=== PATIENT | female | born 1945 | race Caucasian/White ===

== ENCOUNTER 2016-09-07 05:12 | Inpatient (IN) | payer MEDICARE, BC ==
[2016-09-04 10:37] LABS: HEMATOCRIT 36.5 % (36.0-48.0); MCH 29.9 pg (26.0-34.0); MCHC 32.9 g/dL (31.0-37.0); MCV 90.8 fL (80.0-100.0); MEAN PLATELET VOLUME 10.5 fL (7.4-10.4); RBC 4.02 10x6/uL (4.00-5.40); WBC 7.3 10x3/uL (4.8-10.8)
[2016-09-04 10:51] LABS: APTT 29.4 SECONDS (22.8-39.4); INR 0.98 (0.85-1.17); PROTIME 12.9 SECONDS (11.6-15.0)
[2016-09-04 10:52] LABS: APPEARANCE CLEAR (CLEAR); BILIRUBIN NEGATIVE (NEGATIVE); COLOR YELLOW (YELLOW); GLUCOSE NEGATIVE (NEGATIVE); KETONE NEGATIVE (NEGATIVE); LEUKOCYTE ESTERASE 1+ (NEGATIVE); NITRITE NEGATIVE (NEGATIVE); PROTEIN NEGATIVE (NEGATIVE); UROBILINOGEN NORMAL (NORMAL)
[2016-09-04 10:54] LABS: BACTERIA MODERATE /hpf (NONE SEEN); MUCUS <1+ /lpf (NONE SEEN); RED CELLS - URINE 0-5 /hpf (0-5); WHITE CELLS - URINE 25-50 /hpf (0-5)
[2016-09-04 10:56] LABS: ALBUMIN 3.4 g/dL (3.4-5.0); ANION GAP 14.7 mmol/L (8-16); BILIRUBIN - TOTAL 0.66 mg/dL (0.2-1.3); CALCIUM 9.5 mg/dL (8.5-10.1); CREATININE - SERUM 1.4 mg/dL (0.6-1.3); POTASSIUM - SERUM 4.7 mmol/L (3.5-5.1); PROTEIN - SERUM 6.3 g/dL (6.4-8.2)
--- NOTE | 2016-09-05 11:32 | HP ---
PATIENT: CHALO MA MEDICAL RECORD: [id number] ACCOUNT: [id number] LOCATION:[facility] : 44 ADMISSION DATE: 09/07/16 HISTORY AND PHYSICAL EXAMINATION Patient CHALO Hutton (71yo, F) ID# [id number]. Date/Time08/19/2016 10:[id number] Dept.NPP_[facility] ClinicProviderSELINA CASTANEDA MDInsuranceMed Primary: MEDICARE B-AR: [employer] MEDICARE Insurance # : [id number] Referring Provider Name : LORETA BURTON Employer Name : RETIRED Med Secondary: BCBS-[place]: MED[employer]AK PLUS (MEDICARE SUPPLEMENT) Insurance # : [id number] Policy/Group # : [id number] Referring Provider Name : LORETA BURTON Employer Name : RETIRED Prescription: ARBCBS - Member is eligible. Chief Complaint Lung lesion Followup: Interstitial lung disease Patient's Care Team Referring Provider (): LORETA BURTON: [address] [place] [phone], , Other: HOLLIS GUALLPA MD Patient's Pharmacies [facility] ([facility]): [place] [address], , Vitals BP:118/72 sitting R arm 08/19/2016 10:34 amBP Cuff Size:large adult 08/19/2016 10:34 amHR:80,regular 08/19/2016 10:34 amHt:6 ft 08/19/2016 10:28 amWt:332 lbs 08/19/2016 10:32 amBMI:45 08/19/2016 10:32 amAllergies Reviewed Allergies TREE AND SHRUB POLLEN: - COTTON WOODWEED POLLENSome allergies listed in Document: #[id number] could not be added to this patient's chart. Please review this document and add these allergies to the patient's chart manually as needed.Medications Reviewed Medications Breo Ellipta 200 mcg-25 mcg/dose powder for inhalation Inhale 1 inhalation(s) every day by inhalation route for 30 days.07/01/16 Nehemias Priceitalopram 40 mg uhtwpy19/05/16 filledPRIMEdoxycycline hyclate 100 mg capsule Take 1 capsule(s) twice a day by oral route for 10 days.07/01/16 Miguel Priceoxycycline hyclate 100 mg nsitxd73/02/16 filledPRIMEfluticasone 50 mcg/actuation nasal spray,uzureducls28/29/16 filledPRIMEgabapentin 300 mg uzafsje93/03/16 filledPRIMEHYDROcodone 7.5 mg-acetaminophen 325 mg ustqfg45/28/15 filledPRIMEIncruse Ellipta 62.5 mcg/actuation powder for inhalation Inhale 1 inhalation(s) every day by inhalation route.07/01/16 Jeff Guallpa MDlosartan 100 mg-hydrochlorothiazide 12.5 mg liuohh01/05/16 filledPRIMEnaproxen 500 mg prjzap50/23/16 filledPRIMENitro-Bid 2 % transdermal omnahqzf71/25/16 filledPRIMEnitrofurantoin monohydrate/macrocrystals 100 mg swktuhq34/12/16 filledPRIMEoxyCODONE-acetaminophen 7.5 mg-325 mg sheyzg58/28/15 filledPRIMEpolyethylene glycol 3350 17 gram/dose oral /17/16 filledPRIMEpredniSONE 10 mg tablet Take 4 tablet(s) every day by oral route as directed.07/01/16 filledPRIMEProAir HFA 90 mcg/actuation aerosol mcueqqh61/02/16 filledPRIMEsimvastatin 40 mg HISTORY AND PHYSICAL [id number] ANILCHALO utuqhr14/05/16 filledPRIMEspironolactone 25 mg yiygcy01/05/16 filledPRIMEtolterodine 2 mg /05/16 filledPRIMEzafirlukast 20 mg luwsfg48/05/16 filledPRIME Some medications listed in Document: #[id number] could not be added to this patient's chart. Please review this document and add these medications to the patient's chart manually as needed. Vaccines Reviewed Vaccines Vaccine TypeDateAmt.RouteSiteLot #Mfr.Exp. DateDate on VISVIS GivenVaccinatorInfluenzainfluenza, high dose [id number] conjugate PCV [id number] Reviewed Problems Hyperlipidemia Morbid obesity Anxiety Obstructive sleep apnea syndrome Sleep related hypoxemia Periodic limb movement disorder Hypertensive disorder Bronchiolitis Allergic rhinitis Chronic bronchitis Asthma Chronic obstructive lung disease Interstitial lung disease Chronic hypoxemic respiratory failure Zmjty-wt-pzniwbw respiratory failure Restrictive lung disease Gastroesophageal reflux disease Arthritis Chronic back pain Periodic leg movements of sleep Dyspnea, Bilateral Chronic cough Some problems listed in Document: #[id number] could not be added to this patient's chart. Please review this document and add these problems to the patient's chart manually as needed. Family History Reviewed Family History Mother- Heart disease ( age: 73) - MISocial History Reviewed Social History Meaningful Use - Optional Smoking Status: Never smoker Deaf or serious difficulty hearing: N Blind or serious difficulty seeing: N Difficulty concentrating, remembering or making decisions: N Difficulty walking or climbing stairs: N Difficulty dressing or bathing: N HISTORY AND PHYSICAL [id number] CHALO MA Difficulty doing errands alone: N Surgical History Reviewed Surgical History Other - 2014 - BACK Other - 2014 - FULL KNEE REPLACEMENT X2 Other - 2013 - FULL KNEE REPLACEMENT X2 Other - 2003 - PARTIAL KNEE REPLACEMENT X2 CHOLECYSTECTOMY [employer] History (not configured) Obstetric History Reviewed Obstetric History Past Medical History Reviewed Past Medical History Asthma: Y GERD: Y High Blood Pressure: Y Notes: ANXIETY DISORDER, SKIN CA Documents for Discussion N/A Screening None recorded. HPI 70-year-old white female with history of anxiety, degenerative joint disease, hypertension, hyperlipidemia, GERD, allergic rhinitis and shortness breath for many years. Patient had frequent sinus, bronchitis and respiratory tract infections as a child, but no known history of asthma, positive for allergy testing she took shots as a child, however recent allergy testi n g in [place] 4 years ago was negative and she was told by her corporate buyer that she has COPD. denies history of pneumonia history of tuberculosis, bronchitis 1-2 times a year during the winter, no CHF, no history of DVT or PE, has dogs x 3 that live outs [facility], but no problems when exposed to them. 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 Patient had echocardiogram and cardiac wo rkup by Dr. Winkler recently. Patient has had shortness breath for many years, slowly progressive, worse with weather changes are typically humidity, worse with exercise and able to only walk up a hallway, particularly going up inclines, strong odors seem to bother her as well, however no nocturnal symptoms. Able to do some of her daily activities but is limited compared to what she could do in the past. Patient has some wheezing, been tried on inhalers but did not seem to help in the past. Has leg edema, sle e ps on one pillow, denies any PND no orthopnea, no chest pain or pleurisy. Patient has chronic cough mostly phlegm production no hemoptysis no purulent secretions, no sore throat, but occasional hoarseness. Patient denies any weight change, no fever, chill s or night sweats. Patient has some reflux and taking ozie-plm-mplczlb Prilosec, no aspiration, does have some rhinitis which he takes Accolade twice a day and no nasal sprays. ROS Patient reports shortness of breath when walking and shortness of breath when lying down but reports no chest pain, no arm pain on exertion, no palpitations, and no known heart murmur. She reports cough and shortness of breath; coughs up yellow phlegm a couple of times a day. Coughs more frequently that is nonproductive.. She HISTORY AND PHYSICAL [id number] CHALO MA reports back pain; in treaatment w in LR. She reports no fever, no night sweats, no significant weight gain, no significant weight loss, and no exercise intolerance. She reports no dry eyes, no irritation, and no vision change. She reports no difficulty hea ring and no ear pain. She reports no frequent nosebleeds and no nose/sinus problems. She reports no sore throat, no bleeding gums, no snoring, no dry mouth, no mouth ulcers, no oral abnormalities, and no teeth problems. She reports no jugular vein distens i on and no swollen glands. She reports no abdominal pain, no vomiting, normal appetite, no diarrhea, not vomiting blood, no nausea, and no constipation. She reports no incontinence, no difficulty urinating, no hematuria, and no increased frequency. She rep o rts no abnormal mole, no jaundice, and no rashes. She reports no loss of consciousness, no weakness, no numbness, no seizures, no dizziness, and no headaches. She reports no depression, no sleep disturbances, feeling safe in relationship, and no alcohol a buse. She reports no fatigue. She reports no swollen glands and no bruising. She reports no runny nose, no sinus pressure, no itching, no hives, and no frequent sneezing. ROS as noted in the HPI Physical Exam Patient is a 71-year-old female. Constitutional: General Appearance: well nourished, well developed, and morbidly obese. Level of Distress: no acute distress. Ambulation: limited ambulation. Ears: Cerumen negative. Canal: no erythema or swelling. Tympanic Membrane: no bulging or fluid and perforated. Nasal: Nasal Mucosa: edematous and irritated and no discharge. Septum: not markedly deformed. Oropharynx: Lips, Teeth, and Gums normal dentition and lips. Oral Mucosa no ulcer, mass, inflammation, swelling, or leukoplakia and moist. Palate: normal hard palate and soft palate. Tongue: no erythema, lesions, enlargement, or swelling. Tonsils: no enlargement or lesions. Posterior Pharynx no enlargement, erythema, exudate, ulcers, mass, cobblestoning, or white patches. Neck: Neck: supple, trachea midline, no masses, and Full ROM. Thyroid: no enlargement or nodules and non-tender. Jugular Veins: no jugular venous distention or sue a waves present and normal jugular venous pressure. Lungs: Respiratory effort: unlabored. Inspection : normal curve and chest wall expansion; no deformity, tenderness, or swelling; and tactile fremitus present and equal on both sides. Auscultation: no wheezing or rhonchi and decreased breath sounds,bilateral,bases and rales / crackles,. Percussion: no dul lness, flatness, or hyperresonance. Cardiovascular: Precordial Exam: non displaced focal PMI. Heart Rate And Rhythm: normal heart rate and rhythm. Heart Sounds: no gallop, click, physiologically split S2, or pericardial friction rub and normal s1. Systoli c Murmur: no systolic murmurs. Diastolic Murmur: no diastolic murmurs. Observation/Palpation of peripheral vascular system: no cyanosis or varicosity changes and normal dorsalis pedis and posterior tibialis. Abdomen: Inspection and Palpation: no tendernes s or masses and soft and non-distended. Liver: non-tender and no hepatomegaly. Spleen: non-tender and no splenomegaly. Bowel Sounds: normal and no abdominal bruits. Lymphatic: no cervical lymph enlargement, axillary LAD, inguinal LAD, femoral LAD, supracl avicular LAD, or HISTORY AND PHYSICAL [id number] CHALO MA popliteal LAD. Musculoskeletal:: Motor Strength and Tone: normal bulk, tone, and motor strength. Gait and Station: normal gait, station, and tandem gait. Joints, Bones, and Muscles: no contractures, malalignment, tenderness, scoliosis, kyp hosis, or bony abnormalities and normal movement of all extremities. Extremities: Inspection/Palpation of digits and nails: no clubbing, cyanosis, petechiae, ischemia, or nodular lesions and Edema. Skin: Inspection and palpation: no rash, lesions, jaundice, ulcer, erythema, or induration and normal turgor. Neurologic: Mental Status/Orientation: oriented to person, place, problem/situation, and time. Mood/Affect: normal mood and affect. Sensation sensation normal. Cranial Nerves cranial nerves II - XII in tact. Deep Tendon Reflexes upper extremities positive and lower extremities positive. Assessment / Plan 1. Interstitial lung disease - [place] OPACITIES BILATERALLY J84.9: Interstitial pulmonary disease, unspecified INTERSTITIAL LUNG DISEASE: CARE INSTRUCTIONS Discussion Notes PATIENT WITH INTERSTITIAL LUNG DISEASE WORKUP NEGATIVE SO FAR hER THERAPY COULD BE DIRECTED RESULTS OF A LUNG BIOPSY aFTER REVIEWING HER WORKUP i THINK THAT SHE WOULD BENEFIT FROM VIDEO-ASSISTED FLUOROSCOPY AND LUNG BIOPSY WITH cultures Into for VATS first august Return to Office Hollis Guallpa MD for Office Visit 15 at [facility] on 09/23/2016 at 02:30 PM Encounter Sign-Off Encounter signed-off by Selina Castaneda MD, 08/19/2016. Encounter performed and documented by Selina Castaneda MD Encounter reviewed & signed by Selina Castaneda MD on 08/19/2016 at 11:27am SELINA CASTANEDA MD at 1132 CC: [id number] DICTATION DATE: 08/19/16 1127 INTERIOR DECORATOR: AVINASH 09/02/16 [id number] [place] [address]
[~2016-09-07] VITALS: Ht 182.9 cm; Wt 153.3 kg
[2016-09-07] VITALS (39 sets, daily range): BP systolic 109–134; BP diastolic 46–74; BMI 45.1; BMI 46.3
[~2016-09-07 05:12] MED LIST: ACCOLATE20 MG PO; ALDACTONE25 MG PO; ANORO ELLIPTA1 EACH INH; BREO ELLIPTA 21 EACH; CELEXA40 MG PO; DETROL2 MG PO; FLUTICASONE PRO16 GM NASAL; HYZAAR 100-12.51 TAB PO; INHALER; NAPROSYN500 MG PO; NEURONTIN 300300 MG PO; OMEPRAZOLE20 M1 PO; PROAIR HFA8.5 GM INH; PROBIOTIC1 EAC1 PO; ULTRAM50 MG; ZOCOR40 MG PO
--- NOTE | 2016-09-07 06:36 | NUR ---
0610 DISCONTINUED K DRAW FOR THIS AM PER DR. EMERSON ORDERS. GIVEN PO PILLS THAT WERE ORDERED PER DR. EMERSON ORDERS.
--- NOTE | 2016-09-07 11:00 | NUR ---
RECIEVED PT FROM OR. CONNECTED TO ICU MONITORS. VSS AT THIS TIME. ASSESSMENT COMPLETE PER FLOWSHEET. WILL CONTINUE TO ASSESS FOR CHANGES THROUGHOUT SHIFT.
--- NOTE | 2016-09-07 11:30 | NUR ---
FAMILY AT BEDSIDE WITH DR. CASTANEDA. UPDATE PROVIDED TO FAMILY.
--- NOTE | 2016-09-07 12:30 | NUR ---
GOOD COUGH AND DEEP BREATH NOTED. PULLING 1250 ON IS.
--- NOTE | 2016-09-07 15:00 | NUR ---
REPOSITIONED FOR COMFORT. PILLOW PLACED UNDER RIGHT KNEE. ICE CHIP GIVEN. WILL CONTINUE TO ASSESS. CALL LIGHT IN REACH. BED IN LOW POSITION.
--- NOTE | 2016-09-07 18:00 | NUR ---
FAMILY AT BEDSIDE. UPDATE PROVIDED.
--- NOTE | 2016-09-07 19:25 | NUR ---
REPORT REC'D AND CARE ASSUMED, PT REC'D SLEEPING ON 4LITER NC, AWAKENS TO VERBAL STIMULI, ORIENTED X 3, LDLSCL DRSG CDI WITH PLASMALYTE @ 30CC/HR, DOPAMINE @ 3MCG/KG/MIN, AND ZINACEF @ 11.4CC/HR, BBS CLEAR TO UPPER LOBES DIMINSHED IN THE BASES, LEFT LATERAL AND POSTERIOR DRSGS CDI, LEFT LATERAL CT TO 20CM H2O SUCTION, SANGUINOUS DRAINAGE PRESENT, NO AIR LEAK NOTED, RIGHT RADIAL KATE WITH FLEXION BOARD INTACT, LEVELED AND ZEROED WITH RETURN OF APPROPRIATE WAVEFORM, CM-ST @ 101, BILAT ARMS WITH SCABS AND BRUISES, CRITICORE GIORDANO PATENT DRAINING CLEAR YELLOW URINE, EPIDURAL TAPED SECURELY TO BACK INFUSING @ 7CC/HR WITH 4CC Q15MIN BOLUS AVAILABLE, PT DENIES PAIN AT THIS TIME, STATES " IT COMES AND GOES", GENERALIZED EDEMA, BILAT SCD'S INTACT AND ON, PT DENIES NEEDS, SR UP X 2, VISIBLE TO NURSES STATION.
--- NOTE | 2016-09-07 20:00 | NUR ---
PT COMPLAINS OF BEING THIRSTY, TOLERATING ICE CHIPS AT THIS TIME, ASSISTED TP TO REPOSITION FOR COMFORT, PT HOLDING LEFT SIDE, STATES " IT REALLY HURTS WHEN I BREATH OR COUGH", REMINDED PT OF EPIDURAL BOLUS BUTTON, PILLOW PROVIDED FOR SPLINTING WHILE COUGHING, VSS.
--- NOTE | 2016-09-07 21:00 | NUR ---
EVENING MEDS GIVEN, NO VISITORS IN AT THIS TIME, WILL MONITOR CLOSELY FOR CHANGES
--- NOTE | 2016-09-07 22:00 | NUR ---
O2 SAT 90-91% WHILE SLEEPING, PT AWAKENED, IS DONE WITH PT, PT PULLING 500-75O, PT COMPLAINS OF PAIN WITH DEEP BREATHING, PT ENCOURAGED TO USE EPIDURAL BUTTON NEEDED FOR BREAKTHROUGH PAIN, VERBALIZES UNDERSTANDING, ICE CHIPS PROVIDED.
--- NOTE | 2016-09-07 23:05 | NUR ---
REASSESSMENT COMPLETED, PT CONTINUES TO PULL 750 ON IS REACHING 1000 OCCASIONALLY , O2 SAT 94%, PT POSITIONED ONTO BACK FOR COMFORT, DENIES FURTHER NEEDS.
[2016-09-08] VITALS (27 sets, daily range): BP systolic 96–125; BP diastolic 49–68; Ht 182.9 cm; Wt 153.3 kg
--- NOTE | 2016-09-08 01:00 | NUR ---
PT REPOSITIONED UP IN BED FOR COMFORT, ICE CHIPS PROVIDED ON REQUEST, VSS, WEANING DOPAMINE
--- NOTE | 2016-09-08 03:00 | NUR ---
PT RESTING EYES CLOSED, VSS, REASSESSMENT COMPLETED, EPIDURAL CONTINUES @ 7CC/HR, PT COMPLAINS OF INTERMITTENT PAIN, WILL CONT TO MONITOR FOR CHANGES.
--- NOTE | 2016-09-08 03:30 | NUR ---
RADIOLOGY AT BS FOR AM CXR, PT TOLERATED WELL.
--- NOTE | 2016-09-08 05:30 | NUR ---
AM LAB DRAWN FROM CVL AND SENT TO LAB, NO CHANGES IN PT STATUS.
--- NOTE | 2016-09-08 06:00 | NUR ---
NO VISITORS IN AT THIS TIME, PT RESTING EYES CLOSED, RESP SHALLOW AND UNLABORED, VSS.
[2016-09-08 06:31] LABS: HEMATOCRIT 31.9 % (36.0-48.0); HEMOGLOBIN 10.3 g/dL (12-16); MCH 29.6 pg (26.0-34.0); MCHC 32.3 g/dL (31.0-37.0); MCV 91.7 fL (80.0-100.0); MEAN PLATELET VOLUME 10.8 fL (7.4-10.4); RBC 3.48 10x6/uL (4.00-5.40); WBC 8.9 10x3/uL (4.8-10.8)
--- NOTE | 2016-09-08 06:47 | CN ---
PATIENT NAME:CHALO MA MEDICAL RECORD: [id number] : 43 LOCATION:[facility]2304 ADMIT DATE: 09/07/16 ACCOUNT: [id number] CONSULTING PHYSICIAN: LORETA BURTON MD REFERRING PHYSICIAN: SELINA CASTANEDA MD DATE OF CONSULTATION: 09/07/2016 DATE OF ADMISSION: 09/07/2016 REASON FOR CONSULTATION: Medical management. HISTORY OF PRESENT ILLNESS: This patient is a 71-year-old female who has had a longstanding history of having acute and chronic hypoxic hypercapnia respiratory failure. He has had a history of having asthma, pulmonary fibrosis with restrictive lung disease, gastroesophageal reflux, morbid obesity. Also, has had hypertension. The patient, it was felt, needed a lung biopsy; therefore, she underwent VATS today with lung biopsy by Dr. Castaneda. PAST MEDICAL HISTORY: Significant that she has had knee replacement bilaterally. She also has had cholecystectomy. She has had a D&C, nasal sinus endoscopy. She is a . MEDICATIONS: Include Celexa 40 mg once a day, fluticasone 50 mcg 2 squirts in each naris b.i.d., gabapentin 300 mg 1 p.o. b.i.d., losartan 100/12.5 mg 1 p.o. every day, Naprosyn 500 mg 2 p.o. every day, Prilosec 20 mg once a day, ProAir 90 mcg 2 puffs q. 4 hours p.r.n. shortness of breath, simvastatin 40 mg 1 p.o. at bedtime, and Detrol 2 mg p.o. b.i.d. ALLERGIES: He has no known drug allergies. FAMILY HISTORY: Mother, obesity, also had hypertension and diabetes in an aunt. SOCIAL HISTORY: The patient is educated through the 12th grade. She is a retired ryan. She denies any ethanol, tobacco use or abuse. REVIEW OF SYSTEMS: CONSTITUTIONAL: She denies any headaches, seizure, or syncope. She denies changes in visual or auditory acuity. PULMONARY: She denies any shortness of breath, cough, congestion, history of asthma, or bronchitis. CARDIOVASCULAR: She denies any chest pain, palpitation, PND, or orthopnea. GASTROINTESTINAL: No chronic nausea, vomiting, melena, or hematochezia. GENITOURINARY: No urgency, frequency, or dysuria. PHYSICAL EXAMINATION: GENERAL: She is an obese female who is sedated, in no acute distress. She is in ICU. VITAL SIGNS: Temperature 99, her pulse 109, respirations 18, blood pressure 126/51, and O2 sat is 95% on 4 liters nasal prong. HEENT: Head: Normocephalic. No lesions. Ears: TMs are clear. Eyes: Pupils are equal, round, and reactive to light. Extraocular movements are intact. Nasal cavity and oropharynx clear. NECK: Supple. There is no adenopathy. HEART: Has a regular rhythm. No murmurs, gallops, or rubs. LUNGS: Clear. CONSULT REPORT [id number] CHALO MA NEUROLOGICAL: The patient does have a chest tube in the left posterior chest. ABDOMEN: Soft, bowel sounds are positive. The patient has a Nicole catheter in place as well. EXTREMITIES: Lower extremities have no edema. She has 2+ dorsalis pedis, posterior tibial pulses. LABORATORY DATA: Preoperatively, the patient had a white count of 7.3, hemoglobin 12, hematocrit 36.5, and her platelets were 233. She had a sodium 144, potassium 4.7, chloride 109, BUN 19, and creatinine 1.4. She had a chest x-ray preoperatively, which showed a stable mild chronic interstitial lung disease versus acute cardiopulmonary disease. Postoperatively, the patient had status post thoracotomy on the left with a left-sided chest tube placed. No pneumothorax could be appreciated. ASSESSMENT: 1. Status post video-assisted thoracoscopic surgery with lung biopsy. 2. History of asthma. 3. Hypertension. 4. Morbid obesity. PLAN: We will repeat chest x-ray in the morning, CBC as well as a BMP. We will continue all of her current medications. Thanks for the consultation. TRANSINT:[id number] Voice Confirmation ID: [id number] DOCUMENT ID: [id number] LORETA BURTON MD at 0647 CC: [id number] DICTATION DATE: 09/07/161811 CASH ON DELIVERY CLERK: 09/07/162058 ADM IN [id number] [place] [address]
[2016-09-08 06:54] LABS: ALBUMIN 2.5 g/dL (3.4-5.0); BILIRUBIN - TOTAL 0.9 mg/dL (0.2-1.3); CALCIUM 7.4 mg/dL (8.5-10.1); CARBON DIOXIDE 24.9 mmol/L (21.0-32.0); CREATININE - SERUM 1.1 mg/dL (0.6-1.3); POTASSIUM - SERUM 3.9 mmol/L (3.5-5.1); PROTEIN - SERUM 5.2 g/dL (6.4-8.2)
--- NOTE | 2016-09-08 07:00 | NUR ---
ASSESSMENT COMPLETE VOICES NO CO AT TIME.
--- NOTE | 2016-09-08 11:15 | NUR ---
SPOKE WITH DR CORADO VIA PHONE, NEW ORDER RECEIVED.
--- NOTE | 2016-09-08 13:40 | NUR ---
Is the patient Alert and Oriented? Yes 0 * How many steps to enter\exit or inside your home? 1 0 * PCP DR. BURTON 0 * Pharmacy [facility] IN [place], [place] 0 * Preadmission Environment Home with Family 0 * ADLs Independent 0 * Equipment Cane Nebulizer Oxygen Walker 0 * Other Equipment PATIENT'S O2 AND NEBULIZER PROVIDED BY [facility] 0 * List name and contact numbers for known caregivers / representatives who currently or will assist patient after discharge: SPOUSE: TITA [phone] * Community resources currently utilized None 0 * Additional services required to return to the preadmission environment? No 0 * Can the patient safely return to the preadmission environment? Yes 0 * Has this patient been hospitalized within the prior 30 days at any hospital? No PATIENT STATES SHE LIVES AT HOME WITH HER , TITA. SHE IS INDEPENDENT IN ALL ADL'S. PATIENT STATES HER WILL BE AVAILABLE TO DRIVE HER HOME AT DISCHARGE. PATIENT'S PCP IS DR. BURTON. SHE GETS HER MEDICATION FROM [facility] IN [place], [place]. PATIENT STATES SHE HAS A WALKER, CANE, NEBULIZER AND O2. SHE STATES [facility] PAT[facility] SUPPLIES HER O2 AND NEBULIZER. PATIENT HAD HOME HEALTH IN THE PAST WHEN SHE HAD A KNEE REPLACEMENT. SHE STATES THER IS 1 STEP TO ENTER HER HOME. NO DISCHARGE NEEDS IDENTIFIED AT THIS TIME.
[2016-09-08 16:12] LABS: AFB SPECIMEN PROCESSING Tissue Grinding (())
--- NOTE | 2016-09-08 19:13 | NUR ---
REPORT RECIEVED. ASSESSMENT COMPLETE PER FLOW SHEET. PT AWAKE ALERT ORIENTED X4 UPON ENTERING ROOM. I2 VIA NC 4L. 02 SAT 97% RR 16 SHALLOW. RUL RML KIMMY CLEAR BILAT LOWER LOBES DEMINISHED. IS ENCOURAGED GOAL MET. REPOSITIONED ON L SIDE. WEAK NON PRODUCTIVE COUGH PRESENT. HEART S1S2 HR 98 NSR. BP 123/78 VIA R RADIAL ART LINE WITH GOOD WAVEFORM EXTREMTY PINK WITH GOOD SENSATION WRIST PROTECTOR ON. L RADIAL PULSE PALP. BILAT PEDAL PULSES PALP +1. GENERALIZED EDEMA NOTED BILAT LOWER EXTREMETIES ELEVATED ON PILLOWS. L LAT CHEST TUBE X1 PATENT SEROUS DRAINAGE NOTED TO 20 CM SUCTION NO AIR LEAK NOTED. GIORDANO PATENT TARIQ URINE NOTED. EPIDURAL PATENT DRSG CDI PT WITH GOOD SENSATION AND MOVEMENT BILAT UPPER AND LOWER EXTREMETIES. VSS PT DENIES NEEDS. WILL CONTINUE TO MONITOR.
--- NOTE | 2016-09-08 21:16 | NUR ---
REPOSITIONED UP IN BED IS ENCOURAGED GOAL MET. 2100 MEDS ADM WITHOUT DIFFICULTY DENIES FURTHER NEEDS.
--- NOTE | 2016-09-08 21:18 | NUR ---
NO FAMILY AT THIS TIME. VSS. 2100 MEDS ADM WITHOUT DIFFICULTY. PT RESTING COMFORTABLY. IS ENCOURAGED WILL CONTINUE TO MONITOR.
[2016-09-09] VITALS (24 sets, daily range): BP systolic 99–118; BP diastolic 47–85
--- NOTE | 2016-09-09 03:16 | NUR ---
REASSESSMENT COMPLETE PER FLOW SHEET. NO NEW CHANGES AT THIS TIME. VSS NO NEW CHANGES AT THIS TIME. WILL CONTINUE TO MONITOR.
--- NOTE | 2016-09-09 03:40 | NUR ---
RADIOLOGY AT BEDSIDE
--- NOTE | 2016-09-09 05:16 | NUR ---
REPOSITIONED UP IN BED IS ENCOURAGED GIVEN ICE WATER PER REQUEST DENIES FURTHER NEEDS
[2016-09-09 05:34] LABS: HEMATOCRIT 32.4 % (36.0-48.0); HEMOGLOBIN 10.2 g/dL (12-16); MCH 29.3 pg (26.0-34.0); MCHC 31.5 g/dL (31.0-37.0); MCV 93.1 fL (80.0-100.0); MEAN PLATELET VOLUME 10.7 fL (7.4-10.4); RBC 3.48 10x6/uL (4.00-5.40); RDW 15.2 % (11.5-14.5); WBC 9.2 10x3/uL (4.8-10.8)
[2016-09-09 05:48] LABS: ALBUMIN 2.7 g/dL (3.4-5.0); ANION GAP 9.6 mmol/L (8-16); BILIRUBIN - TOTAL 1.09 mg/dL (0.2-1.3); CALCIUM 8.7 mg/dL (8.5-10.1); CARBON DIOXIDE 28.9 mmol/L (21.0-32.0); CREATININE - SERUM 1.1 mg/dL (0.6-1.3); PROTEIN - SERUM 5.9 g/dL (6.4-8.2)
[2016-09-09 05:49] LABS: POTASSIUM - SERUM 4.5 mmol/L (3.5-5.1)
[2016-09-09 11:17] LABS: FUNGUS STAIN Final report (())
--- NOTE | 2016-09-09 23:21 | NUR ---
NO NEW FINDINGS AT THIS TIME. VSS. PT SLEEPING COMFORTABLY WILL CONTINUE TO MONITOR.
[2016-09-10] VITALS (24 sets, daily range): BP systolic 102–129; BP diastolic 58–94
--- NOTE | 2016-09-10 03:24 | NUR ---
REASSESSMENT COMPLET EPER FLOW SHEET. NO NEW CHANGES. VSS WILL CONTINUE TO MONITOR.
--- NOTE | 2016-09-10 04:15 | NUR ---
RESP AT BEDSIDE. IS ENCOURAGED GOAL MET. WILL CONTINUE TO MONITOR.
[2016-09-10 04:45] LABS: BASOPHILS 0.3 % (0.0-2.0); HEMATOCRIT 31.6 % (36.0-48.0); IMMATURE GRANULOCYTES 0.4 % (0-5); LYMPHOCYTES 26.4 % (15-50); MCH 29.2 pg (26.0-34.0); MCHC 31.6 g/dL (31.0-37.0); MCV 92.4 fL (80.0-100.0); MONOCYTES 13.7 % (2-11); NEUTROPHILS 56.2 % (40-80); PLATELET COUNT 199 10x3/uL (130-400); RBC 3.42 10x6/uL (4.00-5.40); RDW 14.9 % (11.5-14.5); WBC 8.9 10x3/uL (4.8-10.8)
[2016-09-10 05:10] LABS: ALBUMIN 2.5 g/dL (3.4-5.0); ANION GAP 7.7 mmol/L (8-16); BILIRUBIN - TOTAL 0.98 mg/dL (0.2-1.3); CALCIUM 8.8 mg/dL (8.5-10.1); CARBON DIOXIDE 31.5 mmol/L (21.0-32.0); CREATININE - SERUM 1.1 mg/dL (0.6-1.3); POTASSIUM - SERUM 4.2 mmol/L (3.5-5.1); PROTEIN - SERUM 5.9 g/dL (6.4-8.2)
--- NOTE | 2016-09-10 06:20 | NUR ---
PT REPOSITIONED UP IN BED ON L SIDE. IS ENCOURAGED. VSS NO NEW CHNAGES. WILL CONTINUE TO MONITOR.
--- NOTE | 2016-09-10 08:00 | NUR ---
Assessment complete per flowsheet. Voices no co at time.
--- NOTE | 2016-09-10 09:56 | NUR ---
Nutrition follow-up: Diet advanced to regular No po intake recorded at this time. Chest tube out Labs reviewed Wt: 344# Will provide food choices with selective menus and honor food preferences. RDN following.
--- NOTE | 2016-09-10 10:00 | NUR ---
drain dcd. Discharged instructions given to patient. Pt wants to make own appt. Phone number given instruct to follow up with Dr Oconnor. Voices no question at time. Left with via private auto.
--- NOTE | 2016-09-10 11:12 | NUR ---
0830 BREAKFAST SERVEED AND PT FEEDING SELF.. MEDS GIVEN.. 0840 DR CASTANEDA IN TO SEE PT ... CHEST TUBE REMOVED BY DR AT THIS TIME.. TEGADERM DRESSING APPLIED... 0845 DR WILKERSON IN FOR ANESTHESIA EPIDURAL REMOVED AT THIS TIME.. 0900 IN TO SEE PT DARK ROOM ATTENDANT AT BEDSIDE.. 1000 RESTING QUIETLY AT THIS TIME.. 1100 SLEEPING WITHOUT C.O AT THIS TIME EASILY ROUSED..
--- NOTE | 2016-09-10 13:57 | NUR ---
1200 FAMILY AT BEDSIDE.. PT CONVERSING WITH THEM.. LUNCH SERVED FEEDING SELF.. 1330 ASISTED OOB TO THE CHAIR BY PHYSICAL THERAPY.. C/O PAIN NORCO GIVEN 1400 CLEAN LINENS TO BED.. PT CONTINUES IN CHAIR AT THE BEDSIDE..
--- NOTE | 2016-09-10 14:40 | NUR ---
4262 PHYSICAL THERAPY IN TO ASSIST PT TO BED...
--- NOTE | 2016-09-10 19:11 | NUR ---
1500 VISITORS AT BEDSIDE.. 1600 RESTING WITH EYES CLOSED 1700 I AND O DONE 1800 NO VISITORS AT THIS TIME DIET SERVED AND PT IS FEEDING SELF..
--- NOTE | 2016-09-10 19:27 | NUR ---
REPORT RECIEVED. ASSESSMENT COMPLETE PER FLOW SHEET. REFER FOR COMPLETE FINDINGS. PT AWAKE ALERT ORIENTED X3. O2 VIA NC 4L O2 SAT 97% RR 18 SHALLOW COUGH DEEP BREATHE ENCOURAGED IS ENCOURAGED GOAL 1250 MET. RUL RML KIMMY CLEAR BILAT LOWER LOBES DEMINISHED. ABD FLAT NON TENDER BS ACTIVE X4. HEART S1S2 HR 89 NSR. PT REPORTS DIFFICULTY MOVING BILAT LOWER EXTREMETIES AT THIS TIME ROM ADM. GIORDANO PATENT TARIQ URINE NOTED. GENERALIZED EDEMA NOTED BILAT LOWER EXTREMETIES. L LAT CHEST INCISIONAL DRSG CDI. VSS PT DENIES NEEDS GIVEN ICE WATER AND REPOSITIONED ON L SIDE FOR COMFORT. WILL CONTNIUE TO MONITOR.
--- NOTE | 2016-09-10 23:14 | NUR ---
REASSESSMENT COMPLETEPER FLOW SHEET. NO NEW CHANGES AT THIS TIME. RESP AT BEDSIDE. WILL CONTINUE TO MONITOR.
[2016-09-11] VITALS (22 sets, daily range): BP systolic 101–148; BP diastolic 54–90
--- NOTE | 2016-09-11 01:20 | NUR ---
REPOSITIONED UP IN BED STRONG PRODUCTIVE COUGH PRESENT. VSS. NO NWE CHNAGES WILL CONTINUE TO MONITOR.
--- NOTE | 2016-09-11 03:08 | NUR ---
REASSESSMENT COMPLETE PER FLOW SHEET. VSS NO NEW CHANGES AT THIS TIME. RADIOLOGY AT BEDSIDE. WILL CONTNIUE TO MONITOR.
--- NOTE | 2016-09-11 05:13 | NUR ---
PT RESTING AT THIS TIME, NO NEEDS NOTED, WILL CON'T TO MONITOR
[2016-09-11 05:44] LABS: BASOPHILS 0.5 % (0.0-2.0); EOSINOPHILS 3.5 % (0-7); HEMATOCRIT 30.4 % (36.0-48.0); HEMOGLOBIN 9.6 g/dL (12-16); IMMATURE GRANULOCYTES 0.4 % (0-5); LYMPHOCYTES 20.5 % (15-50); MCH 29.2 pg (26.0-34.0); MCHC 31.6 g/dL (31.0-37.0); MCV 92.4 fL (80.0-100.0); MEAN PLATELET VOLUME 10.5 fL (7.4-10.4); NEUTROPHILS 63.1 % (40-80); PLATELET COUNT 194 10x3/uL (130-400); RBC 3.29 10x6/uL (4.00-5.40); RDW 14.7 % (11.5-14.5); WBC 8.5 10x3/uL (4.8-10.8)
[2016-09-11 06:08] LABS: ALBUMIN 2.4 g/dL (3.4-5.0); ANION GAP 9.6 mmol/L (8-16); BILIRUBIN - TOTAL 0.85 mg/dL (0.2-1.3); CARBON DIOXIDE 31.8 mmol/L (21.0-32.0); POTASSIUM - SERUM 4.4 mmol/L (3.5-5.1); PROTEIN - SERUM 5.9 g/dL (6.4-8.2)
--- NOTE | 2016-09-11 23:15 | NUR ---
1914-REPORT RECVD. CARE ASSUMED. INITIAL ASSMNT COMPLETED. SEE FLOWSHEET FOR ALL FINDINGS. AWAKE AND AOX4. UP IN CHAIR AT BEDSIDE. RESP UNLABORED. LUNG SOUNDS DIM THRU OUT. SPO2 97% ON O2 AT 3 LPM NC. LEFT LATERAL CHEST INCISION CDI. SR ON THE MONITOR. PULSES PALP. GENERALIZED EDEMA NOTED. PULSES PALP. SCDS IN USE. AFEBRILE. ABD SOFT, BSA X4. VOIDING TO BSC NO DIFF. NO NEEDS VOICED. C/L IN REACH. CONT CURRENT POC. 2109- HS MEDS GIVEN. ASSISTED TO BSC TO VOID AND INTO BED. VSS. PRN PAIN MED GIVEN FOR COMFORT. HOB UP. C/L IN REACH. CONT CURRENT POC. 231- REASSESSMENT COMPLETED. SEE FLOWSHEET FOR ALL FINDINGS. RESTING WITH NO DISTRESS. TURN/COUGH/DB DONE. RESP UNLABORED. LUNG SOUNDS DIM THRU OUT. SPO2 97% ON O2 AT 3 LPM NC. LEFT LATERAL CHEST INCISION CDI. SR ON THE MONITOR. PULSES PALP. GENERALIZED EDEMA NOTED. PULSES PALP. SCDS IN USE. AFEBRILE. ABD SOFT, BSA X4. VOIDING TO BSC NO DIFF. NO NEEDS VOICED. C/L IN REACH. CONT CURRENT POC.
[2016-09-12] VITALS (16 sets, daily range): BP systolic 118–158; BP diastolic 57–102
--- NOTE | 2016-09-12 01:05 | NUR ---
RESTING WITH NO DISTRESS. TURNS INDEPENDENTLY. GOOD EFFORT WITH COUGH/DB. VSS. SR ON THE MONITOR. NO NEEDS VOICED. HOB UP. C/L IN REACH. CONT CURRENT POC.
--- NOTE | 2016-09-12 03:30 | NUR ---
REASEESSMENT COMPLETED. SEE FLOWSHEET FOR ALL FINDINGS. RESP UNLABORED. LUNG SOUNDS DIM THRU OUT. SPO2 97% ON O2 AT 3 LPM NC. LEFT LATERAL CHEST INCISION CDI. SR ON THE MONITOR. PULSES PALP. GENERALIZED EDEMA NOTED. PULSES PALP. SCDS IN USE. AFEBRILE. ABD SOFT, BSA X4. ASSISTED UP TO BSC TO VOID. BATH GIVEN. LINENS CHANGED. ASSISTED BACK TO BED WITH MINIMAL ASSIST. HOB UP. C/L IN REACH. DENIES FURTHER NEED. CONT CURRENT POC.
--- NOTE | 2016-09-12 05:15 | NUR ---
RESTING WITH NO DISTRESS. VSS. TURN/COUGH/DB. INCENTIVE DONE. REPOSITIONS INDEPENDENTLY. HOB UP. C/L IN REACH. CONT CURRENT POC.
--- NOTE | 2016-09-12 07:20 | NUR ---
ASSISTED TO BEDSIDE COMMODE AND TO CHAIR. BREAKFAST TRAY SET UP PROVIDED.
--- NOTE | 2016-09-12 11:10 | NUR ---
AWAITING LUNCH TRAY. NO CURRENT NEEDS.
--- NOTE | 2016-09-12 12:20 | OP ---
PATIENT NAME: CHALO MA MEDICAL RECORD: [id number] :43 LOCATION:[facility] D.[id number] ADMISSION DATE:09/07/16 SURGEON: SELINA MCBRIDE MD DATE OF OPERATION: 09/07/2016 SURGEON: Selina Mcbride MD ANESTHESIA: General endotracheal, Dr. Jiang. OPERATION PERFORMED: Left video-assisted thoracoscopy with lung biopsy of the left lower lobe and left upper lobe. PREOPERATIVE DIAGNOSIS: Interstitial lung disease. POSTOPERATIVE DIAGNOSIS: Interstitial lung disease. INDICATION FOR OPERATION: Interstitial lung disease. FINDINGS AT OPERATION: Stiff noncompliant lung. ESTIMATED BLOOD LOSS: Less than 10 cc. Cultures were taken for aerobe, anaerobe, TB and fungus., 2 segments. One from the left lower lobe and one from the left upper lobe sent for histology: DESCRIPTION OF PROCEDURE: After informed consent, adequate preoperative medication evaluation, the patient was brought to the operating room, placed on the table in the supine position. After induction of general endotracheal anesthesia and application of appropriate monitoring devices, the patient was turned in a right lateral decubitus position. The pressure points and neurological structures were protected. The left chest was then prepped and draped in a sterile field, utilizing Betadine scrub, alcohol, and Betadine solution. A Betadine-impregnated drape was also used in the ninth mid axillary line interspace. An incision was made and a port placed. The camera was introduced and the lung examined and ____. An anterior port and posterior ports were made under direct vision. The lung and mediastinum were examined. There were no abnormal lymph nodes noted. The biopsies were then taken utilizing an Endo-KUMAR from the left lower lobe and left upper lobe. The cultures were sent for aerobe, anaerobe, TB and fungus. The specimens were sent for histology. Chest was then irrigated with copious amounts of antibiotic solution and normal saline. There was no active bleeding. The instrument count and sponge count were correct times 2. A #32 chest tube was placed in the mid axillary line placed in the upper left hemithorax, it was connected to underwater seal and suction. The anterior and posterior ports were then closed utilizing 2-0 Vicryl on deep subcutaneous tissue and 0 Ethibond on the skin. Sterile dressings were applied. The patient tolerated the procedure well, underwent bronchoscopy with a normal endobronchial exam, the patient also underwent bronchoscopy for placement of the double lumen tube. The patient was then extubated and transferred to the ICU in critical, but stable condition. TRANSINT:[id number] Voice Confirmation ID: [id number] DOCUMENT ID: [id number] OPERATIVE REPORT [id number] CHALO MA EDWARD MD at 1220 CC: [id number] DICTATION DATE: 09/07/16 1046 DRAINAGE ENGINEER: 09/07/16 1153 [place] [address]
--- NOTE | 2016-09-12 18:47 | NUR ---
ASSISTED TO BSC AND BACK TO BED. LINENS CHANGED.
--- NOTE | 2016-09-12 19:15 | NUR ---
1915-REPORT RECVD. CARE ASSUMED. INITIAL ASSMNT COMPLETED. SEE FLOWSHEET FOR ALL FINDINGS. AWAKE AND AOX4. UP IN CHAIR AT BEDSIDE. RESP UNLABORED. LUNG SOUNDS DIM THRU OUT. SPO2 97% ON O2 AT 3 LPM NC. LEFT LATERAL CHEST INCISION CDI. SR ON THE MONITOR. PULSES PALP. GENERALIZED EDEMA NOTED. PULSES PALP. SCDS IN USE. AFEBRILE. ABD SOFT, BSA X4. VOIDING TO BSC NO DIFF. NO NEEDS VOICED. C/L IN REACH. CONT CURRENT POC.
--- NOTE | 2016-09-12 22:30 | NUR ---
REPORT CALLED TO FRANCISCO GOFF PT TRANSFERRED VIA WC TO ROOM 2115. STABLE CONDITION. AOX4.
--- NOTE | 2016-09-12 22:55 | NUR ---
PT ARRIVES FROM ICU, TRANSFER VIA WHEELCHAIR ACCOMPANIED BY NURSE. LEFT POSTERIOR THORACIC INCISION AND PREVIOUS CT SITE WITH DRESSINGS CDI. PT DENIES ANY C/O PAIN AT THIS TIME. PLACED ON TELE, ST 101. O2 3LPM NC, SATS 92%. LEFT SUBCLAVIAN CVL, DRESSING CDI. FLUSHES EASILY AND EACH LUMEN CAPPED. UNIT ROUTINES AND PROTOCOLS DISCUSSED WITH PT, VERBALIZED UNDERSTANDING. BILAT SCD'S PLACED. ON INSPECTION BLE WARM DRY AND INTACT. WILL CONT TO MONITOR.
[2016-09-13 00:35] VITALS: BP 110/59
--- NOTE | 2016-09-13 02:00 | NUR ---
PT RESTING WELL WITHOUT C/O OR DISTRESS NOTED. NO NEEDS VOICED. CALL LIGHT WITHIN REACH. WILL CONT TO MONITOR.
[2016-09-13 04:00] VITALS: BP 133/70
--- NOTE | 2016-09-13 08:00 | NUR ---
ASSESSMENT COMPLETED. TELEMERTY SHOWS SR WITH A RATE OF 97. DRSG TO CHEST CLEAN AND DRY. O2 AT 3 L/M PER NC. LEFT SUB CLAVIAN SL. GIORDANO 16 GREENLANDIC. PLACED PER ORDERS.CATH BAG PLACED ON ICE. IST STEP AIR BED. SR UP WITH CALL LIGHT IN REACH
[2016-09-13 08:07] VITALS: BP 122/64
--- NOTE | 2016-09-13 10:17 | NUR ---
LYING QUIETLY WITH FAMILY AT BEDSIDE. NO COMPLAINTS VOICED. WILL MONITOR
--- NOTE | 2016-09-13 11:39 | NUR ---
ALERT AND ORIENTED X4. OOB TO AMBULATE WITH PHYSICAL THERAPY. DENIES PAIN OR SOB. SINUS RHYTHM 99bpm ON TELEMETRY. ASSIST BACK TO BED. GIORDANO DRAINING BY GRAVITY IN ICE. CONTINUE PLAN OF CARE. BED LOCKED AND LOW. CALL LIGHT IN REACH. TWO SIDERAILS UP. REFUSE SCDs.
[2016-09-13 12:19] VITALS: BP 157/71
--- NOTE | 2016-09-13 12:19 | NUR ---
HOB UP FOR DIET. DENIES ANY NEEDS. CALL LIGHT IN REACH WITH SR UP. GIORDANO TO BEDSIDE GRAVITY. WILL MONITOR
[2016-09-13 16:33] VITALS: BP 114/48
[2016-09-13 20:00] VITALS: BP 107/59
--- NOTE | 2016-09-13 21:47 | NUR ---
INITIAL ROUNDS COMPLETED AT 1914 HRS. PT RESTING WITH EYES CLOSED. RESP EVEN AND REGULAR. ASSESSMENT COMPLETED AT 1954 HRS. VSS. SR PER CM HR 92. O2 3LNC WITH SAT 92%. LDLSC SL. DRSG TO UPPER L LATERAL BACK CLEAN, DRY AND INTACT. SUTUTES NOTED TO SMAE AREA INGTACT. RACE L LOWER LEG EDEMA NOTED. GIORDANO DRAINING YELLOW URINE ON ICE FOR 24 HR URINE. IST STEP AIR OVERLAY MATTRESS. PM MEDS GIVEN. PT REPOSITIONED IN BED FOR COMFORT. WILL CONTINUE TO MONITOR. SR UP X2, CALL LIGHT WITHIN REACH.
--- NOTE | 2016-09-14 00:15 | NUR ---
PT RESTING WITH EYES CLOSED. RESP EVEN AND REGULAR. SR UP X2, CALL LIGHT WITHIN REACH.
[2016-09-14 00:33] VITALS: BP 112/56
--- NOTE | 2016-09-14 03:04 | NUR ---
PT RESTING WITH EYES CLOSED. RESP EVEN AND REGULAR. SR UP X2, CALL LIGHT WITHIN REACH.
[2016-09-14 04:34] VITALS: BP 119/54
--- NOTE | 2016-09-14 04:48 | NUR ---
VSS. PT DENIES ANY DISCOMFORT. WILL CONTINUE TO MONITOR.
[2016-09-14 05:00] LABS: HEMATOCRIT 30.2 % (36.0-48.0); HEMOGLOBIN 9.5 g/dL (12-16); MCH 29.4 pg (26.0-34.0); MCHC 31.5 g/dL (31.0-37.0); MCV 93.5 fL (80.0-100.0); MEAN PLATELET VOLUME 10.6 fL (7.4-10.4); RBC 3.23 10x6/uL (4.00-5.40); RDW 14.7 % (11.5-14.5); WBC 7.2 10x3/uL (4.8-10.8)
[2016-09-14 05:14] LABS: ALBUMIN 2.4 g/dL (3.4-5.0); ANION GAP 8.7 mmol/L (8-16); BILIRUBIN - TOTAL 0.39 mg/dL (0.2-1.3); CARBON DIOXIDE 31.5 mmol/L (21.0-32.0); CREATININE - SERUM 1.2 mg/dL (0.6-1.3); POTASSIUM - SERUM 4.2 mmol/L (3.5-5.1); PROTEIN - SERUM 5.8 g/dL (6.4-8.2)
--- NOTE | 2016-09-14 06:52 | NUR ---
VSS THROUGHOUT NIGHTT, PT DENIED ANY DISCOMFORT. NEEDS MET; WILL CONTINUE TO MONITOR.
--- NOTE | 2016-09-14 07:40 | NUR ---
ASSESSMENT DONE. DENIES NEEDS. CM SHOWS SR RATE 88 PER TECH. LT DL SC NOTED. @2L PER NC. 1ST STEP OVER LAY TO BED. RT CHEST DRSG C/D. GIORDANO CATH NOTED.
--- NOTE | 2016-09-14 08:00 | NUR ---
24HR URINE DONE. TO LAB.
[2016-09-14 08:15] VITALS: BP 129/63
[2016-09-14 12:20] VITALS: BP 112/55
--- NOTE | 2016-09-14 16:00 | NUR ---
ALERT AND ORIENTED X4. AMBULATING IN OLIVARES WITH WALKER AND PHYSICAL THERAPY. DENIES PAIN. SINUS RHYTHM 94bpm ON TELEMETRY. GAIT STEADY. CONTINUE PLAN OF CARE AND SAFETY PRECAUTIONS.
[2016-09-14 16:22] VITALS: BP 138/64
--- NOTE | 2016-09-14 17:00 | NUR ---
WITHOUT CHANGES OR DISTRESS NOTED AT THIS TIME. DENIES NEEDS. AT SIDE.
[2016-09-14 21:43] VITALS: BP 145/59
[2016-09-15 01:28] VITALS: BP 121/59
[2016-09-15 05:45] VITALS: BP 125/64
[2016-09-15 08:00] VITALS: BP 160/58
--- NOTE | 2016-09-15 08:03 | NUR ---
ASSESSMENT DONE. DENIES NEEDS. UP TO BR. LT DL SC SL. O2 @ 2L PER NC.
--- NOTE | 2016-09-15 11:37 | NUR ---
RESTING QUIETLY IN BED. WANTING TO GO HOME. MONITOR SHOWS SINUS @ 92. WILL CONTINUE TO MONITOR.
[2016-09-15 12:00] VITALS: BP 145/69
[2016-09-15] MEDS ORDERED: IPRAT-ALBUT 0.5-3 ML UPD (13:41)
--- NOTE | 2016-09-15 13:52 | NUR ---
Patient Name: CHALO MA Encounter No: [id number] : 1945 Primary Insurance: MEDICARE A & B Anticipated DC Date: 09-15-2016 Planned Disposition: Home DCP follow-up note: CM RECEIVED ORDER TO ARRANGE NEBUILZER FOR HOME USE. CM MET WITH PT IN ROOM TO DISCUSS DISCHARGE NEEDS AND PLANNING. CM DISCUSSED AVAILABILITY OF HOME HEALTH, REHAB SERVICES AND MEDICAL EQUIPMENT. PT DENIES NEED FOR REHAB OR HOME HEALTH. PT WOULD LIKE HER NEBULIZER DELIVERED TO HOSPITAL TODAY FOR DISCHARGE HOME LATER. PT REPORTS HER SPOUSE TO TRANSPORT HOME AT DISCHARGE. IMPORTANT MESSAGE FROM [employer] PROVIDED AND EXPLAINED. CM CALLED [facility],[phone], SPOKE TO DARIEL, PROVIDED REFERRAL INFORMATION AND REQUESTED HOSPITAL DELIVERY. CM FAXED REFERRAL TO [facility], . PT NOTIFIED. [facility] PAT[facility] TO DELIVERY NEBULIZER TO HOSPITAL FOR PT'S DISCHARGE HOME THIS AFTERNOON. Chinedu Benitez, CASE MANAGEMENT
--- NOTE | 2016-09-15 14:44 | NUR ---
D/C PTS L.SUBCLAVIAN DOUBLE LUMEN CVL. CATHETER TIP FULLY INTACT. PT LYING FLAT AND DENIES ANY PAIN OR FURTHER NEEDS AT THIS TIME. CL IN REACH, AT BEDSIDE.
--- NOTE | 2016-09-15 16:45 | NUR ---
DC GIVEN TO PT
--- NOTE | 2016-09-15 17:07 | NUR ---
DC HOME PER PERSONAL CAR
--- NOTE | 2016-09-23 09:12 | CN ---
PATIENT NAME:CHALO MA MEDICAL RECORD: [id number] : 43 LOCATION:D. D.2116 ADMIT DATE: 09/07/16 ACCOUNT: [id number] CONSULTING PHYSICIAN: ARI BLOCK MD REFERRING PHYSICIAN: SELINA CASTANEDA MD DATE OF CONSULTATION: 09/07/2016 CONSULT REQUESTING PHYSICIAN: Dr. Castaneda. REASON FOR CONSULTATION: Uavyw-kl-kpbzdod hypoxic hypercapnic respiratory failure, respiratory acidosis, status post VATS and lung biopsy. HISTORY OF PRESENT ILLNESS: Ms. Ma is a 71-year-old female who underwent VATS and left-sided lung biopsy this morning. Now, the patient is sleepy, but she is arousable. She does have shortness of breath on exertion. She is on oxygen at 2 liters nasal cannula. REVIEW OF SYSTEMS: Mainly in the history of present illness. PAST MEDICAL HISTORY: 1. Asthma. 2. Pulmonary fibrosis with restrictive lung disease. 3. Hypertension. 4. Gastroesophageal reflux disease. 5. Morbid obesity. 6. History of allergic rhinitis. 7. Nocturnal hypoxia, no obstructive sleep apnea. PAST SURGICAL HISTORY: 1. Knee replacement times 2. 2. Partial knee replacement times 2. ALLERGIES: SHE IS ALLERGIC TO SULFA AND BACTRIM. PRESENT MEDICATIONS: On Futuretec was reviewed. PERSONAL AND SOCIAL HISTORY: The patient is a nonsmoker, nondrinker. FAMILY HISTORY: Noncontributory. PHYSICAL EXAMINATION: GENERAL: Now, the patient is lying comfortably in bed. She is not in acute distress. VITAL SIGNS: The blood pressure is 124/56, pulse is 110, respiration is 18, temperature is 96.8 and SpO2 is 94% on 4 liters nasal cannula. HEENT: Conjunctivae pink, sclerae nonicteric. NECK: Supple, no JVD. CHEST: The chest excursion is minimal on both sides. There are bibasilar crackles. There is a chest tube on the left side. HEART: Rate and rhythm regular, normal sound, no murmur. ABDOMEN: Soft, bowel sounds present. No hepatosplenomegaly. RECTAL: Deferred. EXTREMITIES: No cyanosis, no clubbing, no pedal edema. SKIN: Warm, normal turgor. CENTRAL NERVOUS SYSTEM: The patient is awake and alert. There are no obvious CONSULT REPORT [id number] MA,CHALO cranial nerve abnormality. The gait was not tested. LABORATORY DATA: CBC: WBC 7.3, hemoglobin 12, hematocrit 36.5, the platelet count 233. Chemistry: Sodium 144, potassium 4.7, BUN is 19, creatinine 1.4. ABG: The pH was 7.22, pCO2 of 55.6, the pO2 was 97. CHEST RADIOGRAPH: The chest tube is in place on the left side. There is prominent interstitial marking bilaterally. IMPRESSION: 1. Doqrb-ye-pkpehxv hypoxic hypercapnic respiratory failure, post-procedure. 2. Respiratory acidosis secondary to #1. 3. Status post video-assisted thoracoscopic surgery and left upper lobe and lower lobe biopsy. 4. Interstitial lung disease. 5. History of asthma. 6. History of bronchiolitis. 7. Allergic rhinitis. 8. Gastroesophageal reflux disease. RECOMMENDATION: 1. Continue supplemental oxygen. We will repeat ABG again when the patient is more awake and alert. 2. Albuterol/ipratropium nebulizer q. 4 hourly p.r.n. 3. DVT prophylaxis. 4. Continue all home medications. Dr. Castaneda, once again thanks for involving me in the care of Mrs. Ma. TRANSINT:[id number] Voice Confirmation ID: [id number] DOCUMENT ID: [id number] ARI BLOCK MD at 0912 CC: SELINA CASTANEDA MD [id number] DICTATION DATE: 09/07/16 1406 BOX STAMPER: 09/07/16 1426 DIS IN 09/15/16 [address] [place] [address]
[2016-10-06 07:25] LABS: FUNGUS MYCOLOGY CULTURE Final report (())
--- NOTE | 2016-10-17 11:55 | DS ---
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 2. Interstitial lung disease. 3. Acute and chronic post-procedure respiratory failure. 4. Body mass index 45-49. 5. Morbid obesity. 6. Gastroesophageal reflux. 7. Primary hypertension. DISCHARGE MEDICATIONS: Please see medical reconciliation form. DISPOSITION: The patient has appointment to see Dr. Esteban for oncology in 2 weeks, appointment to see Dr. Castaneda in followup in 2-3 weeks, appointment to see Dr. Guallpa to be arranged. HOSPITAL COURSE: Ms. Ma was admitted to the hospital and underwent video-assisted thoracoscopy of her left hemithorax and open lung biopsy. She did reasonably well postoperatively and was followed by Dr. Guallpa for her respiratory insufficiency. She gradually improved. Her epidural catheter was removed. She began to ambulate and taking a diet and feeling well. Her pathology demonstrated a rare condition of her lung, which is diffuse idiopathic pulmonary neuroendocrine cell hyperplasia. At the time of discharge, she is ambulating and taking a diet and eager to go home. She has been given discharge instructions and wound precautions and will be seen as above. TRANSINT:[id number] Voice Confirmation ID: [id number] DOCUMENT ID: [id number] SELINA CASTANEDA MD at 1155 CC: [id number] DICTATION DATE: 10/10/16 1227 PROJECT CONTROLS SPECIALIST: 10/10/16 1354 DIS IN 09/15/16 [address] [place] [address]
[2016-10-29 14:27] LABS: ACID FAST CULTURE Negative (()); ACID FAST SMEAR Negative (())
== END 2016-09-15 17:08 | disposition home or self-care (01) | DRG 166 ==
LOC: D.ICU 05:12 → D.M2 05:12 → D.SDCHOLD 05:12 → D.ICU 09:37 → D.M2 09-12 22:48 → D.SDCHOLD 09-14 16:00 → D.M2 09-14 16:00
PROVIDERS: Internal Medicine Hematology & Oncology; ADMIT Internal Medicine Cardiovascular Disease
PROC: 0BB Respiratory System, Excision (ICD-10-PCS; principal; 2016-09-07 07:30)
PROC: 0BBJ4ZX Excision of Left Lower Lung Lobe, Percutaneous Endoscopic Approach, Diagnostic (ICD-10-PCS; 2016-09-07 07:30)
DX: J84.9 Interstitial pulmonary disease, unspecified (principal); J95.822 Acute and chronic postprocedural respiratory failure; Z68.42 Body mass index [BMI] 45.0-49.9, adult; E66.01 Morbid (severe) obesity due to excess calories; K21.9 Gastro-esophageal reflux disease without esophagitis; I10 Essential (primary) hypertension

== ENCOUNTER → 2016-10-08 12:36 | Outpatient (CLI) | payer MEDICARE, BC ==
[2016-09-08 12:16] VITALS: BMI 46.8
[~2016-10-08 12:36] MED LIST changes: +IPRAT-ALBUT 0.5-3 ML UPD
== END | disposition home or self-care (01) ==
LOC: D.RAD 08:15
DX: Z98.890 Other specified postprocedural states (principal)

== ENCOUNTER → 2016-11-13 13:29 | Outpatient (CLI) | payer MEDICARE, BC ==
[2016-09-08 12:16] VITALS: BMI 46.8
== END | disposition home or self-care (01) ==
LOC: D.RT 13:29
DX: J84.9 Interstitial pulmonary disease, unspecified (principal)

== ENCOUNTER → 2017-04-12 09:56 | Outpatient (CLI) | payer MEDICARE, BC ==
[2016-09-08 12:16] VITALS: BMI 46.8
== END | disposition home or self-care (01) ==
LOC: D.CT 09:56
DX: C34.12 Malignant neoplasm of upper lobe, left bronchus or lung (principal)

== ENCOUNTER 2017-06-17 17:39 | Inpatient (IN) | payer MEDICARE, BC ==
[2017-06-17 19:20] LABS: BASOPHILS 0.3 % (0-2); EOSINOPHILS 0.6 % (0-7); HEMATOCRIT 37.6 % (36.0-48.0); HEMOGLOBIN 12.1 g/dL (12-16); IMMATURE GRANULOCYTES 0.5 % (0-5); LYMPHOCYTES 29.4 % (15-50); MCHC 32.2 g/dL (31.0-37.0); MEAN PLATELET VOLUME 10.5 fL (7.4-10.4); MONOCYTES 11.2 % (2-11); PLATELET COUNT 192 10x3/uL (130-400); RBC 4.32 10x6/uL (4.00-5.40); RDW 15.7 % (11.5-14.5); WBC 9.4 10x3/uL (4.8-10.8)
[2017-06-17 19:36] LABS: ALBUMIN 2.9 g/dL (3.4-5.0); ALKALINE PHOSPHATASE 79 U/L (46-116); ALT (SGPT) 17 U/L (10-68); BILIRUBIN - TOTAL 0.56 mg/dL (0.2-1.3); CALC OSMOLALITY 293 mosm/kg (275-300); CALCIUM 9.3 mg/dL (8.5-10.1); CARBON DIOXIDE 29.9 mmol/L (21.0-32.0); CHLORIDE - SERUM 106 mmol/L (98-107); CKMB 0.4 U/L (0.0-3.6); CREATINE KINASE 37 UL (21-215); CREATININE - SERUM 2.1 mg/dL (0.6-1.3); GLUCOSE 136 mg/dL (74-106); POTASSIUM - SERUM 4.2 mmol/L (3.5-5.1); PROTEIN - SERUM 6.6 g/dL (6.4-8.2); SODIUM 144 mmol/L (136-145); UREA NITROGEN 27 mg/dL (7-18); eGFR NON AFRICAN AMERICAN 24 mL/min (90-120)
[2017-06-17 19:37] LABS: TROPONIN-I < 0.017 ng/mL (0.000-0.060)
[2017-06-17 20:00] VITALS: BP 127/78
[2017-06-18] VITALS: BP 141/90
[2017-06-18 00:55] VITALS: BMI 46.4
[2017-06-18 04:00] VITALS: BP 141/82
[2017-06-18 04:50] LABS: BASOPHILS 0.5 % (0-2); EOSINOPHILS 0 % (0-7); HEMATOCRIT 38.2 % (36.0-48.0); HEMOGLOBIN 12.4 g/dL (12-16); IMMATURE GRANULOCYTES 0.7 % (0-5); LYMPHOCYTES 30.8 % (15-50); MCH 27.9 pg (26.0-34.0); MCHC 32.5 g/dL (31.0-37.0); MEAN PLATELET VOLUME 10.8 fL (7.4-10.4); MONOCYTES 1.2 % (2-11); NEUTROPHILS 66.8 % (40-80); PLATELET COUNT 195 10x3/uL (130-400); RBC 4.44 10x6/uL (4.00-5.40); RDW 15.6 % (11.5-14.5)
[2017-06-18 04:52] LABS: WBC 4.2 10x3/uL (4.8-10.8)
[2017-06-18 05:08] LABS: ANION GAP 10.2 mmol/L (8-16); CALCIUM 8.8 mg/dL (8.5-10.1); CARBON DIOXIDE 30.2 mmol/L (21.0-32.0); CREATININE - SERUM 1.6 mg/dL (0.6-1.3); POTASSIUM - SERUM 4.4 mmol/L (3.5-5.1)
--- NOTE | 2017-06-18 07:30 | NUR ---
PT ASSESSMENT COMPLETE AWAKE AND ALERT ORIENTED X 3 LUNGS WITH DIMINISHED SOUNDS BILATERALLY BSA X 4 QUADS PT COMPLAINT OF HEADACHE. WILL TREAT PER ORDER.
[2017-06-18 09:12] VITALS: BP 144/89
--- NOTE | 2017-06-18 10:43 | NUR ---
Patient Name: CHALO MA Admission Status: ER Accout number: [id number] Admission Date: 06-17-2017 : 1945 Admission Diagnosis:CHRONIC OBSTRUCTIVE PULMONARY DISEASE W (ACUTE) EXACERB Attending: LORETA BURTON Current LOS: 1 Anticipated DC Date: 06-21-2017 Planned Disposition: Home Primary Insurance: MEDICARE A & B Discharge Planning Comments: CM MET WITH PATIENT REGARDING D/C NEEDS AND PLANS. PATIENT STATED SHE LIVES WITH HER SPOUSE (TITA) AND HE WILL DRIVE HER HOME AT DISCHARGE. PATIENT HAS ONE STEP TO ENTER HOME AND NO STAIRS INSIDE. PATIENT STATED SHE IS INDEPENDENT WITH HER CARE AND HAS A WALKER, CANE, BS COMMODE, SHOWER CHAIR, NEBULIZER, PORT O2, AND OXYGEN (2L) AT HOME. PATIENTS PCP IS DR. BURTON AND PHARMACY IS [facility] IN [place]. PATIENT WANTS TO SEE IF DOCTOR THINKS HOME HEALTH IS A GOOD IDEA. CM WILL CONTINUE TO FOLLOW PATIENT WITH D/C NEEDS AND PLANS. PCP DR[facility] IN [place]- [phone] TITA (SPOUSE) [phone] Chief Clerk: Ju Saige Is the patient Alert and Oriented? Yes 0 * How many steps to enter\exit or inside your home? 1 0 * PCP DR. BURTON 0 * Pharmacy [facility] IN [place] 0 * Preadmission Environment Home with Family 0 * ADLs Independent 0 * Equipment Bedside Commode Cane Nebulizer Oxygen Shower Chair Walker 0 * Other Equipment PORT O2 0 * List name and contact numbers for known caregivers / representatives who currently or will assist patient after discharge: TITA (SPOUSE) [phone] 0 * Community resources currently utilized None 0 * Additional services required to return to the preadmission environment? Yes 0 * Can the patient safely return to the preadmission environment? Yes 0 * Has this patient been hospitalized within the prior 30 days at any hospital? No 0 Grand Total: 0
--- NOTE | 2017-06-18 11:00 | NUR ---
PT WITH NO DISTRESS NOTED VOICES ALL NEES TO STAFF HAS ICE PK NOTED TO HEAD TREATED HEADACHE PER ORDER EARLIER PT STATES NO RELEIF GIVEN IV STEROIDS AT THIS TIME.
[2017-06-18 12:30] VITALS: BP 141/58
[2017-06-18 16:42] VITALS: BP 109/64
--- NOTE | 2017-06-18 16:46 | NUR ---
PT RESTING WELL IN BED WITH NO DISTRESS NOTED VOICES ALL NEEDS FAMILY AT SIDE.
--- NOTE | 2017-06-18 19:00 | NUR ---
REPORT RECEIVED AND CARE OF PT ASSUMED. PT LYING IN SUPINE POSTION VISITING WITH SPOUSE. IV IN LEFT FA PATENT WITH 1/2 NS INFUSING AT 50 ML / HR. WILL MONITOR CLSOELY FOR NEEDS.
[2017-06-18 20:00] VITALS: BP 115/64
--- NOTE | 2017-06-18 20:59 | NUR ---
HS MEDICATIONS GIVEN. WILL CONTINUE TO MONITOR FOR NEEDS. CALL LIGHT WITHIN REACH.
[2017-06-19] VITALS: BP 110/72
--- NOTE | 2017-06-19 01:10 | NUR ---
PT RESTING QUIETLY ON RIGHT SIDE WITH EASY RESPIRATIONS. SPOUSE IS AT BEDSIDE. CALL LIGHT WITHIN REACH.
[2017-06-19 04:00] VITALS: BP 150/98
[2017-06-19 04:57] LABS: BASOPHILS 0.1 % (0-2); EOSINOPHILS 0 % (0-7); HEMATOCRIT 35.6 % (36.0-48.0); HEMOGLOBIN 11.8 g/dL (12-16); IMMATURE GRANULOCYTES 0.4 % (0-5); LYMPHOCYTES 14.9 % (15-50); MCHC 33.1 g/dL (31.0-37.0); MCV 84.6 fL (80.0-100.0); MEAN PLATELET VOLUME 10.8 fL (7.4-10.4); MONOCYTES 1.6 % (2-11); PLATELET COUNT 210 10x3/uL (130-400); RBC 4.21 10x6/uL (4.00-5.40); RDW 15.5 % (11.5-14.5)
[2017-06-19 04:58] LABS: WBC 13.4 10x3/uL (4.8-10.8)
[2017-06-19 05:31] LABS: ALBUMIN 2.7 g/dL (3.4-5.0); BILIRUBIN - TOTAL 0.4 mg/dL (0.2-1.3); CARBON DIOXIDE 25.9 mmol/L (21.0-32.0); CREATININE - SERUM 1.4 mg/dL (0.6-1.3); POTASSIUM - SERUM 3.9 mmol/L (3.5-5.1); PROTEIN - SERUM 6.1 g/dL (6.4-8.2)
--- NOTE | 2017-06-19 07:40 | NUR ---
ASSESSMENT COMPLETE. IV TO L FA PATENT. 1/2 NS INFUSING AT 50 CC/HR VIA PUMP. O2 2L NC. 2+ EDEMA TO BLE. DENIES ANY NEEDS AT THIS TIME.
[2017-06-19 08:11] VITALS: BP 150/74
[2017-06-19 12:37] VITALS: BP 162/95
--- NOTE | 2017-06-19 15:30 | NUR ---
RESTING QUIETLY IN BED. FAMILY AT BEDSIDE. DENIES ANY NEEDS AT THIS TIME.
[2017-06-19 16:18] VITALS: BP 113/71
--- NOTE | 2017-06-19 19:00 | NUR ---
REPORT RECEIVED AND CARE OF PT ASSUMED. PT LYING IN SUPINE POSITION VISITNG WITH FAMILY MEMBER. IV IN LEFT FA PATENT WITH 1/2 NS INFUSING AT 50 ML/HR. WILL MONITOR CLOSELY FOR NEEDS.
[2017-06-19 20:00] VITALS: BP 133/79
--- NOTE | 2017-06-19 21:05 | NUR ---
HS MEDICATIONS GIVEN. FSBS 376 THIS CHECK REQUIRING COVERAGE ITH 10 UNITS OF HUMALOG PER SLIDING SCALE. PT REFUSES SNACK AT THIS TIME. WILL CONTINUE TO MONITOR FOR NEEDS.
--- NOTE | 2017-06-19 23:23 | NUR ---
PT RESTING QUIETLY ON RIGHT SIDE WITH EASY RESPIRATIONS. SPOUSE IS AT BEDSIDE. WILL CONTINUE TO MONITOR FOR NEEDS.
[2017-06-20] VITALS (7 sets, daily range): BP systolic 128–151; BP diastolic 65–84
[2017-06-20 05:32] LABS: BASOPHILS 0 % (0-2); EOSINOPHILS 0 % (0-7); HEMATOCRIT 36.3 % (36.0-48.0); HEMOGLOBIN 11.9 g/dL (12-16); IMMATURE GRANULOCYTES 0.6 % (0-5); LYMPHOCYTES 9.8 % (15-50); MCH 28.3 pg (26.0-34.0); MCHC 32.8 g/dL (31.0-37.0); MCV 86.2 fL (80.0-100.0); MEAN PLATELET VOLUME 11.2 fL (7.4-10.4); MONOCYTES 2.1 % (2-11); NEUTROPHILS 87.5 % (40-80); PLATELET COUNT 214 10x3/uL (130-400); RBC 4.21 10x6/uL (4.00-5.40); RDW 15.7 % (11.5-14.5)
[2017-06-20 06:10] LABS: ALBUMIN 2.9 g/dL (3.4-5.0); ANION GAP 11.3 mmol/L (8-16); BILIRUBIN - TOTAL 0.3 mg/dL (0.2-1.3); CALCIUM 8.9 mg/dL (8.5-10.1); CARBON DIOXIDE 28.2 mmol/L (21.0-32.0); CREATININE - SERUM 1.5 mg/dL (0.6-1.3); POTASSIUM - SERUM 4.5 mmol/L (3.5-5.1); PROTEIN - SERUM 6.4 g/dL (6.4-8.2)
--- NOTE | 2017-06-20 07:45 | NUR ---
ASSESSMENT COMPLETE. IV TO L FA PATENT. 1/2 NS INFUSING AT 50 CC/HR VIA PUMP. 3+ EDEMA TO BLE. O2 2L NC IN USE. DENIES ANY NEEDS AT THIS TIME. SOB ON EXERTION.
--- NOTE | 2017-06-20 14:00 | NUR ---
NO CHANGES NOTED AT THIS TIME.
--- NOTE | 2017-06-20 17:42 | NUR ---
CONTINUES RESTING QUIETLY IN BED. VISITING WITH AT BEDSIDE. IV TO L FA PATENT. RESP EVEN,NONLABORED.
--- NOTE | 2017-06-20 19:00 | NUR ---
REPORT RECEIVED AND CARE OF PT ASSUMED. PT SITTING UP ON SIDE OF BED VISITING WITH SPOUSE. IV IN LEFT FA PATENT WITH 1/2 NS INFUSING AT 50 ML / HR. BLE REMAINS EDEMATOUS. O2 IN USE VIA NC AT 2L. WILL MONITOR CLOSELY FOR NEEDS. CALL LIGHT WTHIN REACH.
--- NOTE | 2017-06-20 20:25 | NUR ---
HS MEDICATIONS GIVEN. FSBS 184 THIS CHECK REQUIRING COVERAGE WITH 2 UNITS OF INSULIN PER SLIDING SCALE. WILL CONTINUE TO MONITOR FOR NEEDS.
--- NOTE | 2017-06-20 20:45 | NUR ---
CHANGED OUT ALL IV TUBING AND TAGGED FOR NEXT DUE DATE.
--- NOTE | 2017-06-20 23:44 | NUR ---
PT RESTING QUIETLY IN SUPINE POSITION WITH EYES CLOSED AND EASY RESPIRATIONS. IS AT BEDSIDE.
[2017-06-21 04:00] VITALS: BP 127/84
[2017-06-21 04:50] LABS: BASOPHILS 0.1 % (0-2); EOSINOPHILS 0 % (0-7); HEMATOCRIT 36.6 % (36.0-48.0); HEMOGLOBIN 11.8 g/dL (12-16); LYMPHOCYTES 11.4 % (15-50); MCHC 32.2 g/dL (31.0-37.0); MCV 86.7 fL (80.0-100.0); MONOCYTES 3.9 % (2-11); NEUTROPHILS 83.6 % (40-80); PLATELET COUNT 215 10x3/uL (130-400); RBC 4.22 10x6/uL (4.00-5.40); RDW 15.6 % (11.5-14.5); WBC 9.6 10x3/uL (4.8-10.8)
[2017-06-21 04:52] LABS: ANION GAP 12.6 mmol/L (8-16); CALCIUM 8.9 mg/dL (8.5-10.1); CARBON DIOXIDE 25.3 mmol/L (21.0-32.0); CREATININE - SERUM 1.6 mg/dL (0.6-1.3); MAGNESIUM - SERUM 1.9 mg/dL (1.8-2.4); POTASSIUM - SERUM 4.9 mmol/L (3.5-5.1)
--- NOTE | 2017-06-21 07:15 | HP ---
PATIENT: CHALO MA MEDICAL RECORD: [id number] ACCOUNT: [id number] LOCATION:D.[id number] : 43 ADMISSION DATE: 06/17/17 HISTORY AND PHYSICAL EXAMINATION DATE OF ADMISSION: 06/17/2017 CHIEF COMPLAINT: Shortness of breath, dizziness, and hypotension. HISTORY OF PRESENT ILLNESS: The patient is a 71-year-old female with long-standing history of having asthma. The patient states, over the past couple of days, she has had increasing shortness of breath. She has had increasing dizziness and states she has not felt well. PAST MEDICAL HISTORY: Her past history is significant in that she has had history of having idiopathic pulmonary neuroendocrine cell hyperplasia. She has also had asthma, hyperlipidemia, hypertension, and depression. She is . FAMILY HISTORY: Mother at 72 years of age secondary to heart disease. She was also diabetic. Father at 78 years of age secondary to heart disease as well. SOCIAL HISTORY: The patient was born and raised in [place], [place]. She is a retired ryan. Educated through the 12th grade. She is , the mother of 2. She denies any ethanol, tobacco use or abuse. ALLERGIES: SULFA. MEDICATIONS: Include Accolate 20 mg p.o. b.i.d., spironolactone 25 mg one-half tablet p.o. q.a.m. p.r.n. swelling, and Zocor 40 mg one p.o. day. She had been on losartan 100/12.5 hydrochlorothiazide one-half tab p.o. daily, gabapentin 300 mg one p.o. b.i.d., Esgic-Plus one every 4 hours p.r.n. severe pain, Celexa 40 mg once a day, Breo one inhalation once a day, and albuterol 90 mcg two puffs q. 4 hours p.r.n. shortness of breath. REVIEW OF SYSTEMS: CONSTITUTIONAL: She denies any headaches, seizures, or syncope. She denies change in visual or auditory acuity. PULMONARY: She does report having more cough. She has had congestion. CARDIOVASCULAR: She denies any chest pain, palpitation, PND, or orthopnea. GI: No chronic nausea, vomiting, melena, or hematochezia. URINARY: No urgency, frequency, or dysuria. PHYSICAL EXAMINATION: VITAL SIGNS: Today, her weight is 331 pounds, her BMI is 46. Her blood pressure is 86/58. She is on O2 at 2 liters, but her O2 sat is 92%. Her pulse is 116. GENERAL: She is alert. She is oriented times 3. She is somewhat dyspneic. HEENT: Unremarkable. NECK: Supple. There is no adenopathy. HEART: Tachycardic. LUNGS: She has end expiratory wheezes diffusely. ABDOMEN: Soft. Bowel sounds are positive. No organomegaly. EXTREMITIES: Lower extremities have trace pretibial edema. HISTORY AND PHYSICAL [id number] CHALO MA DIAGNOSTIC DATA: The patient did have an EKG today, showing sinus tachycardia, rate of 116. ASSESSMENT: Hypoxemia, hypotension with history of hypertension, tachycardia, and history of idiopathic pulmonary neuroendocrine cell hyperplasia. PLAN: The patient is admitted. Pulmonary consultation will be obtained. She will be placed on Solu-Medrol 80 mg IV q. 8 hours, Rocephin 1 gram q. 24 hours, and Zithromax 500 mg daily. Also, the patient will be given albuterol and Atrovent updrafts, O2 supplementation. TRANSINT:[id number] Voice Confirmation ID: [id number] DOCUMENT ID: [id number] LORETA BURTON MD at 0715 CC: [id number] DICTATION DATE: 06/17/171815 FLOOR FINISHER: 06/17/17 190 ADM IN [id number] [place] [address]
--- NOTE | 2017-06-21 07:30 | NUR ---
AT BEDSIDE, DENIES NEEDS, HOB 35 DEGREES, NO DISTRESS NOTED, CALL LIGHT IN REACH, BED LOWEST POSITION, WILL CONTINUE TO MONITOR
[2017-06-21 08:31] VITALS: BP 165/96
[2017-06-21 12:04] VITALS: BP 162/99
[2017-06-21 16:18] VITALS: BP 157/73
--- NOTE | 2017-06-21 17:12 | NUR ---
PT IS LYING IN BED VISITING WITH SPOUSE, VERBALIZED NO NEEDS AT THIS TIME. BED IS IN LOW POSITION, CALL LIGHT IN REACH
[2017-06-21 22:08] VITALS: BP 171/104
--- NOTE | 2017-06-21 23:49 | NUR ---
REC'D ON ROUNDS PT RESING IN BED SR UP X2 CALL LIGHT WITHIN REACH. IV PATENT LEFT FOREARM SALINE LOCKED. O2 ON 2L/M PER NC. BILATERAL LOWER EXTREMITIES EDEMA.
[2017-06-22 00:39] VITALS: BP 135/78
--- NOTE | 2017-06-22 02:30 | NUR ---
EYES CLOSED RESPIRATIONS WITH EASE AND UNLABORED.
[2017-06-22 04:00] VITALS: BP 143/70
[2017-06-22 04:27] LABS: BASOPHILS 0 % (0-2); EOSINOPHILS 0.7 % (0-7); HEMATOCRIT 37.9 % (36.0-48.0); HEMOGLOBIN 12.3 g/dL (12-16); IMMATURE GRANULOCYTES 1.4 % (0-5); LYMPHOCYTES 28.5 % (15-50); MCH 28.3 pg (26.0-34.0); MCHC 32.5 g/dL (31.0-37.0); MCV 87.1 fL (80.0-100.0); MEAN PLATELET VOLUME 11.4 fL (7.4-10.4); MONOCYTES 12.5 % (2-11); NEUTROPHILS 56.9 % (40-80); PLATELET COUNT 228 10x3/uL (130-400); RBC 4.35 10x6/uL (4.00-5.40); RDW 15.9 % (11.5-14.5)
[2017-06-22 04:44] LABS: ANION GAP 9.8 mmol/L (8-16); CALCIUM 8.8 mg/dL (8.5-10.1); CREATININE - SERUM 1.7 mg/dL (0.6-1.3); POTASSIUM - SERUM 4.5 mmol/L (3.5-5.1)
[2017-06-22 04:50] LABS: CARBON DIOXIDE 31.7 mmol/L (21.0-32.0)
--- NOTE | 2017-06-22 04:58 | NUR ---
EYES CLOSEDRESPIRATIONS WITH EASE AND UNLABORED.
--- NOTE | 2017-06-22 06:29 | NUR ---
MEDS GIVEN PER MAR. FSBS=99. NO COVERAGE NEEDED.
[2017-06-22] MEDS ORDERED: METFORMIN HCL500 M1 PO (06:53)
[2017-06-22] MEDS ORDERED: MEDROL DOSE PACK4 MG PO (06:56)
[2017-06-22] MEDS ORDERED: CEFACLOR ER500 MG PO (06:56)
[2017-06-22] MEDS ORDERED: KLOR-CON 1010 MEQ PO (06:57)
[2017-06-22] MEDS ORDERED: LASIX40 MG PO (06:57)
[2017-06-22] MEDS ORDERED: ZPAK PO (06:58)
--- NOTE | 2017-06-22 07:51 | NUR ---
CM REASSESSMENT NOTE: PATIENT IS DISCHARGING HOME TODAY. PATIENTS SPOUSE IS DRIVING HER HOME. IMM SERVED. PATIENT HAD NO NEEDS FOR DISCHARGE / REF. HH AT THIS TIME. PATIENT HAS HER PORTABLE O2 FOR DISCHARGE.
--- NOTE | 2017-06-22 08:18 | NUR ---
SCHEDULED MEDICATIONS ADMINISTERED AT THIS TIME WITHOUT DIFFICULTY. IV D/C BY SHELL DELVALLE. AT BEDSIDE. PT HAS ALREADY HAD FLU VACCINE THIS SEASON. WILL CONTINUE WITH PLAN OF CARE.
[2017-06-22 08:19] VITALS: BP 130/86
--- NOTE | 2017-06-22 10:02 | NUR ---
DISCHARGED HOME AT THIS TIME.
--- NOTE | 2017-06-22 10:16 | NUR ---
DM DIET EDU. PROVIDED PT AND SPOUSE WITH DM DIET GUIDELINES. TAUGHT LABEL READING, DISCUSSED SOURCES OF CARBOHYDRATE, SERVING SIZES. PROVIDED RD CONTACT INFORMATION. RD FOLLOWING
--- NOTE | 2017-07-02 10:35 | CN ---
PATIENT NAME:CHALO MA MEDICAL RECORD: [id number] : 43 LOCATION:D.[id number] ADMIT DATE: 06/17/17 ACCOUNT: [id number] CONSULTING PHYSICIAN: ARI BLOCK MD REFERRING PHYSICIAN: LORETA BURTON MD DATE OF CONSULTATION: 06/18/2017 REQUESTING PHYSICIAN: Aclides Moore MD REASON FOR CONSULTATION: Asthma exacerbation and hypotension. HISTORY OF PRESENT ILLNESS: Ms. Ma is a 71-year-old female who has history of asthma, pulmonary fibrosis as well as a neuroendocrine tumor. The patient was on chronic steroid dosage. She taped it off slowly 2 weeks ago. Now, she got acute bronchitis with coughing, wheezing and shortness of breath. The cough is productive of white yellow color sputum production. She was also hypotensive. There is no associated nausea, vomiting, no diarrhea. REVIEW OF SYSTEMS: Mainly in the history of present illness. PAST MEDICAL HISTORY: 1. Asthma. 2. Chronic hypoxic respiratory failure, on home oxygen. 3. Pulmonary fibrosis. 4. Hypertension. 5. Gastroesophageal reflux disease. 6. Morbid obesity. 7. History of allergic rhinitis. 8. Neuroendocrine tumor of the lung. PAST SURGICAL HISTORY: 1. She has a partial knee replacement times 2. 2. She has VATS and open lung biopsy in August 2016. ALLERGIES: SHE IS ALLERGIC TO SULFA AND BACTRIM. PRESENT MEDICATIONS: On Med[employer] was reviewed. PERSONAL AND SOCIAL HISTORY: The patient is a nonsmoker, nondrinker. FAMILY HISTORY: Noncontributory. PHYSICAL EXAMINATION: GENERAL: Now, the patient is lying comfortably in bed. She is not in acute distress. VITAL SIGNS: The blood pressure is 141/58, pulse is 102, respiration is 20, temperature 98.4, SpO2 is 90% on 2 liter nasal cannula. HEENT: Conjunctivae pink, sclerae nonicteric. NECK: Supple. No JVD. CHEST: There are bilateral crackles. Wheeze on forceful expiration. HEART: Rhythm regular, normal sound, no murmur. ABDOMEN: Soft, bowel sounds present. No hepatosplenomegaly. RECTAL: Deferred. EXTREMITIES: No cyanosis, no clubbing, no pedal edema. SKIN: Warm, normal turgor. CONSULT REPORT [id number] CHALO MA CENTRAL NERVOUS SYSTEM: The patient is awake and alert. There is no obvious cranial nerve abnormality. The gait was not tested. IMAGING: Chest radiograph; there are increased interstitial markings. There is no consolidation. OTHER LABORATORY DATA: CBC; the WBC is 4.2, hemoglobin is 12.4, hematocrit is 38.2 and the platelet count 195. Chemistry; sodium 140, potassium 4.4, BUN is 26, creatinine 1.6. ProBNP is 83. Albumin is 2.9. IMPRESSION: 1. Qbolj-uz-gabxdmh hypoxic respiratory failure. 2. Acute exacerbation of asthma. 3. Acute bronchitis. 4. Hypotension, most likely secondary to stress response to acute illness and hypoadrenalism. 5. Pulmonary fibrosis. RECOMMENDATION: 1. Methylprednisolone 60 mg IV every 8 hourly. 2. Albuterol-ipratropium nebulizer. 3. Start Brovana-budesonide nebulizer. 4. Singulair 10 mg a day. 5. Continue Zithromax and Rocephin. Check the serum cortisol level. Follow up chest radiograph in the morning and labs. Dr. Moore thank you for involving me in the care of Ms. Ma. TRANSINT:[id number] Voice Confirmation ID: [id number] DOCUMENT ID: [id number] ARI BLOCK MD at 1035 CC: LORETA BURTON MD [id number] DICTATION DATE: 06/18/17 144 VENEER STAPLER: 06/18/17 1624 DIS IN 06/22/17 [facility] [address] [id number]
--- NOTE | 2017-07-26 06:54 | DS ---
PATIENT:CHALO MA :43 MEDICAL RECORD: [id number] DISCHARGE SUMMARY ADMISSION DATE: 06/17/17 DISCHARGE DATE: 06/22/17 DATE OF ADMISSION: 06/17/2017. DATE OF DISCHARGE: 06/22/2017. CONDITION ON DISCHARGE: Improved. ADMITTING DIAGNOSES: Hypoxemia, hypotension, history of hypertension, tachycardia, history of idiopathic pulmonary neuroendocrine cell hyperplasia. DISCHARGE DIAGNOSES: Chronic obstructive pulmonary disease exacerbation, qveah-wl-qanbtjd respiratory failure with hypoxemia, acute renal failure, asthma, hypertension, tachycardia, hyperlipidemia, and history of depression. HOSPITAL COURSE: A 71-year-old female with longstanding history of asthma. The patient states that for the past couple of days, she was having increasing shortness of breath. She had had dizziness, also had not felt well. PHYSICAL EXAMINATION: VITAL SIGNS: Her weight was 331. Her blood pressure was 86/58, O2 with 2 liters were 92% in the office, and her pulse 116. GENERAL: She is alert. She is oriented times 3. She was somewhat dyspneic. HEART: Tachycardic. LUNGS: She had diffuse end-expiratory wheezes. EXTREMITIES: Lower extremities had trace pretibial edema. The patient was admitted, started on IV Solu-Medrol, also Rocephin as well as Zithromax. Pulmonary consultation was obtained. Chest x-ray revealed mild prominence of interstitial lung markings, which suggested interstitial edema or pneumonia. She was seen in consultation by Dr. Cassidy, binding nicker, who had agreed with the Solu-Medrol, Rocephin, and Zithromax. The patient's condition slowly began to improve. Sputum cultures were normal or negative. On the , x-ray of her chest revealed stable moderate interstitial lung markings throughout both lungs suggestive of chronic interstitial lung disease. It was felt that an acute interstitial pneumonia could not be excluded. On the , the patient was afebrile. Her vital signs are stable. Her white count was 9, hemoglobin 12.3, hematocrit 37.9, and platelets were 228. She had a sodium of 141, potassium was 4.5, chloride 104, CO2 was 31.7. Her BUN is 50 and creatinine 1.3. he patient was discharged home. She was on a Z-Jerrod take as directed, metformin was 500 mg p.o. daily, Ceclor 500 mg p.o. q.12 hours, Medrol Dosepak take as directed, Lasix 40 mg 1 p.o. day, KCl 10 mEq once a day. She will continue ProAir 2 puffs q.4 hours p.r.n. shortness of breath, Flonase 1 spray in each naris b.i.d., Naprosyn 500 mg p.o. b.i.d., Accolate 20 mg p.o. b.i.d., Detrol 2 mg p.o. b.i.d., Zocor 40 mg 1 p.o. day, Celexa 40 mg 1 p.o. day, Neurontin 300 mg p.o. b.i.d., Aldactone 25 mg p.o. every day, probiotic 1 p.o. every day, Breo Ellipta 200/25 one puff every day, DuoNeb 3 mL updrafts q.4 hours p.r.n. shortness of breath. The patient was to be on 2200 calorie ADA diet. Activities, ad robin. O2 at 2 liters. She would follow up with me in 1 week. TRANSINT:[id number] Voice Confirmation ID: [id number] DOCUMENT ID: [id number] DISCHARGE SUMMARY REPORT [id number] CHALO MA JAMES MD at 0654 CC: [id number] DICTATION DATE: 07/25/17 111 SPIRITUAL ADVISOR: 07/25/17 1344 DIS IN 06/22/17 [id number] [place] [address]
== END 2017-06-22 10:03 | disposition home or self-care (01) | DRG 189 ==
LOC: D.ER 17:39 → D.MS 18:04 → D.M2 18:04 → D.MS 18:05
PROVIDERS: Family Medicine; ADMIT Family Medicine
DX: J96.21 Acute and chronic respiratory failure with hypoxia (principal); J44.1 Chronic obstructive pulmonary disease with (acute) exacerbation; N17.9 Acute kidney failure, unspecified; J45.901 Unspecified asthma with (acute) exacerbation; J44.0 Chronic obstructive pulmonary disease with (acute) lower respiratory infection; I95.9 Hypotension, unspecified; I12.9 Hypertensive chronic kidney disease with stage 1 through stage 4 chronic kidney disease, or unspecified chronic kidney disease; N18.9 Chronic kidney disease, unspecified; R00.0 Tachycardia, unspecified; E78.5 Hyperlipidemia, unspecified; F32.9 Major depressive disorder, single episode, unspecified; D3A.8 Other benign neuroendocrine tumors; E86.0 Dehydration; J20.9 Acute bronchitis, unspecified; J84.10 Pulmonary fibrosis, unspecified

== ENCOUNTER → 2019-02-27 13:36 | Outpatient (CLI) | payer MEDICARE, BC ==
[~2019-02-27 13:36] MED LIST changes: +CEFACLOR ER500 MG PO; +KLOR-CON 1010 MEQ PO; +LASIX40 MG PO; +MEDROL DOSE PACK4 MG PO; +METFORMIN HCL500 M1 PO; +ZPAK PO
== END | disposition home or self-care (01) ==
LOC: D.US 13:36
PROVIDERS: ATTEND Family Medicine
DX: N18.9 Chronic kidney disease, unspecified (principal)

== ENCOUNTER 2019-04-17 12:48 | Inpatient (IN) | payer MEDICARE, BC ==
[~2019-04-17] VITALS: Ht 180.3 cm; Wt 131.5 kg
[2019-04-17 13:48] LABS: BASOPHILS 0.3 % (0-2); EOSINOPHILS 0.9 % (0-7); HEMATOCRIT 35.8 % (36.0-48.0); HEMOGLOBIN 11.6 g/dL (12-16); LYMPHOCYTES 28.2 % (15-50); MCH 28.2 pg (26.0-34.0); MCHC 32.4 g/dL (31.0-37.0); MCV 87.1 fL (80.0-100.0); MEAN PLATELET VOLUME 10.1 fL (7.4-10.4); MONOCYTES 12.7 % (2-11); NEUTROPHILS 56.9 % (40-80); RBC 4.11 10x6/uL (4.00-5.40); WBC 11.1 10x3/uL (4.8-10.8)
[2019-04-17 14:00] VITALS: BP 141/85
[2019-04-17 14:05] LABS: PLATELET COUNT 169 10x3/uL (130-400)
[2019-04-17 14:06] LABS: ALBUMIN 2.4 g/dL (3.4-5.0); ALKALINE PHOSPHATASE 114 U/L (46-116); ALT (SGPT) 20 U/L (10-68); BILIRUBIN - TOTAL 0.99 mg/dL (0.2-1.3); CALC OSMOLALITY 291 mosm/kg (275-300); CALCIUM 8.6 mg/dL (8.5-10.1); CHLORIDE - SERUM 102 mmol/L (98-107); CREATININE - SERUM 1.8 mg/dL (0.6-1.3); GLUCOSE 129 mg/dL (74-106); POTASSIUM - SERUM 4.7 mmol/L (3.5-5.1); PROTEIN - SERUM 5.9 g/dL (6.4-8.2); SODIUM 140 mmol/L (136-145); UREA NITROGEN 42 mg/dL (7-18); eGFR NON AFRICAN AMERICAN 29 mL/min (90-120)
[2019-04-17 14:09] LABS: AMYLASE - SERUM 25 U/L (25-115); LIPASE 79 U/L (73-393); TROPONIN-I < 0.017 ng/mL (0.000-0.060)
[2019-04-17 14:13] LABS: APPEARANCE SL CLDY (CLEAR); BACTERIA MANY /hpf (NONE SEEN); BILIRUBIN NEGATIVE (NEGATIVE); COLOR YELLOW (YELLOW); EPITHELIAL CELLS 0-5 /hpf (0-5); GLUCOSE NEGATIVE (NEGATIVE); KETONE NEGATIVE (NEGATIVE); MUCUS <1+ /lpf (NONE SEEN); NITRITE POSITIVE (NEGATIVE); PROTEIN NEGATIVE (NEGATIVE); RED CELLS - URINE OCC /hpf (0-5); UROBILINOGEN NORMAL (NORMAL)
[2019-04-17 16:00] VITALS: BP 126/75
[2019-04-17 17:21] VITALS: BP 140/81
[2019-04-17] MEDS ORDERED: VITAMIN D2000 UNIT PO (21:52)
[2019-04-17] MEDS ORDERED: PREDNISONE10 MG PO (21:56)
[2019-04-18 01:01] VITALS: BP 163/65; BMI 40.5
[2019-04-18 05:36] VITALS: BP 124/79
[2019-04-18 07:43] LABS: BASOPHILS 0.2 % (0-2); EOSINOPHILS 1.3 % (0-7); HEMATOCRIT 35.1 % (36.0-48.0); HEMOGLOBIN 11.1 g/dL (12-16); IMMATURE GRANULOCYTES 1.2 % (0-5); LYMPHOCYTES 27.7 % (15-50); MCH 27.8 pg (26.0-34.0); MCHC 31.6 g/dL (31.0-37.0); MEAN PLATELET VOLUME 9.8 fL (7.4-10.4); MONOCYTES 13.7 % (2-11); NEUTROPHILS 55.9 % (40-80); PLATELET COUNT 169 10x3/uL (130-400); RBC 3.99 10x6/uL (4.00-5.40); RDW 16.3 % (11.5-14.5); WBC 8.4 10x3/uL (4.8-10.8)
[2019-04-18 07:52] LABS: APTT 31.1 SECONDS (22.8-39.4)
[2019-04-18 07:53] LABS: INR 0.98 (0.85-1.17); PROTIME 12.5 SECONDS (11.6-15.0)
[2019-04-18 08:07] LABS: ANION GAP 5.5 mmol/L (8-16); CALCIUM 8.4 mg/dL (8.5-10.1); CARBON DIOXIDE 37.5 mmol/L (21.0-32.0); CREATININE - SERUM 1.7 mg/dL (0.6-1.3); MAGNESIUM - SERUM 2.2 mg/dL (1.8-2.4); PHOSPHOROUS 3.3 mg/dL (2.5-4.9)
[2019-04-18 08:59] VITALS: BP 129/84
[2019-04-18 11:25] VITALS: Ht 180.3 cm; Wt 131.5 kg
[2019-04-18 14:23] VITALS: BP 121/76
[2019-04-18 17:51] VITALS: BP 93/68
[2019-04-18 21:16] VITALS: BP 134/67
[2019-04-19 00:56] VITALS: BP 146/68
[2019-04-19 05:54] VITALS: BP 124/57
[2019-04-19 07:37] LABS: BASOPHILS 0.1 % (0-2); EOSINOPHILS 1.2 % (0-7); HEMATOCRIT 33.8 % (36.0-48.0); HEMOGLOBIN 10.6 g/dL (12-16); IMMATURE GRANULOCYTES 2.7 % (0-5); MCH 27.9 pg (26.0-34.0); MCHC 31.4 g/dL (31.0-37.0); MCV 88.9 fL (80.0-100.0); MEAN PLATELET VOLUME 10.5 fL (7.4-10.4); MONOCYTES 13.6 % (2-11); NEUTROPHILS 49.4 % (40-80); PLATELET COUNT 198 10x3/uL (130-400); RDW 16.7 % (11.5-14.5); WBC 8.7 10x3/uL (4.8-10.8)
[2019-04-19 07:58] LABS: CALCIUM 8.4 mg/dL (8.5-10.1); CARBON DIOXIDE 35.9 mmol/L (21.0-32.0); CREATININE - SERUM 1.4 mg/dL (0.6-1.3); MAGNESIUM - SERUM 2.1 mg/dL (1.8-2.4); PHOSPHOROUS 2.7 mg/dL (2.5-4.9); POTASSIUM - SERUM 4.9 mmol/L (3.5-5.1)
[2019-04-19 09:45] VITALS: BP 126/73
[2019-04-19] MEDS ORDERED: MERREM 1 GM/NS 11 G1 IV (11:31)
[2019-04-19] MEDS ORDERED: DIFLUCAN100 MG PO (11:31)
[2019-04-19] MEDS ORDERED: FLORAJEN3 CAPS460 MG PO (11:32)
[2019-04-19] MEDS ORDERED: HUMALOG 30100 UNITS/ SC (11:32)
[2019-04-19] MEDS ORDERED: IPRAT-ALBUT 0.5-3 ML UPD (11:33)
[2019-04-19] MEDS ORDERED: PROTONIX40 MG PO (11:33)
[2019-04-19] MEDS ORDERED: NYSTATIN1 PWD TOPICAL (11:33)
[2019-04-19] MEDS ORDERED: HYDROCODON-ACE1 EAC7 PO (11:34)
--- NOTE | 2019-04-19 11:58 | MORECARE ---
CASE MANAGEMENT DISCHARGE SUMMARY PATIENT: CHALO MA UNIT: [id number] ADM DATE: 04/17/19 AGE: 73 : 43 SEX: F ROOM/BED: D.2233 AUTHOR: DEBBIE VIRAMONTES PHYSICIAN: REFERRING PHYSICIAN: JULIA MOELLER DO DATE OF SERVICE: 04/19/19 Discharge Plan Patient Name[facility]ALO [facility] [facility] 1945 Planned Disposition: Inpatient Rehab Anticipated Discharge Date: Discharge Date: Expected LOS: Initial Reviewer: [email or web address] Initial Review Date: 04/19/2019 Generated: 04/19/19 12:58 pm Patient Name: CHALO MA Page [phone] at 1158 All edits/amendments must be made on the electronic document DICTATION DATE: 04/19/19 1158 VAMP STITCHER: AVINASH 04/19/19 1158 RPT#: [id number] DC DATE: STATUS: ADM IN [facility] [address] [place] [address] END OF REPORT
[2019-04-19 13:44] VITALS: BP 156/82
[2019-04-19 17:08] VITALS: BP 147/57
--- NOTE | 2019-04-27 08:23 | MORECARE ---
CASE MANAGEMENT DISCHARGE SUMMARY PATIENT: CHALO MA UNIT: [id number] ADM DATE: 04/17/19 AGE: 73 : 44 SEX: F ROOM/BED: D.2233 AUTHOR: DEBBIE VIRAMONTES PHYSICIAN: REFERRING PHYSICIAN: JULIA MOELLER DO DATE OF SERVICE: 04/27/19 Discharge Plan Patient Name: CHALO [facility] [facility] 1945 Planned Disposition: Inpatient Rehab Anticipated Discharge Date: Discharge Date: 04/19/2019 Expected LOS: 0 Initial Reviewer: [email or web address] Initial Review Date: 04/19/2019 Generated: 04/27/19 9:23 am Last DP export: 04/19/19 10:58 a Patient Name: CHALO MA Page [id number] at 0823 All edits/amendments must be made on the electronic document DICTATION DATE: 04/27/19821 METALLURGICAL OR MATERIALS TECHNICIAN: AVINASH 04/27/19821 RPT#: [id number] DC DATE:04/19/19 STATUS: DIS IN [facility] [address] [place] [address] END OF REPORT
== END 2019-04-19 17:22 | DRG 690 ==
LOC: D.ER 12:48 → D.MS 20:08
PROVIDERS: Emergency Medicine; ADMIT Family Medicine; ATTEND Family Medicine
DX: N39.0 Urinary tract infection, site not specified (principal); C7A.8 Other malignant neuroendocrine tumors; Z68.41 Body mass index [BMI] 40.0-44.9, adult; W19.XXXA Unspecified fall, initial encounter; D64.9 Anemia, unspecified; J44.9 Chronic obstructive pulmonary disease, unspecified; E11.22 Type 2 diabetes mellitus with diabetic chronic kidney disease; I12.9 Hypertensive chronic kidney disease with stage 1 through stage 4 chronic kidney disease, or unspecified chronic kidney disease; N18.9 Chronic kidney disease, unspecified; E78.5 Hyperlipidemia, unspecified; E66.01 Morbid (severe) obesity due to excess calories

== ENCOUNTER 2019-04-19 16:25 | Inpatient (IN) | payer MEDICARE, BC ==
[~2019-04-19] VITALS: Ht 180.3 cm; Wt 131.5 kg
[~2019-04-19 16:25] MED LIST changes: +DIFLUCAN100 MG PO; +FLORAJEN3 CAPS460 MG PO; +HUMALOG 30100 UNITS/ SC; +HYDROCODON-ACE1 EAC7 PO; +MERREM 1 GM/NS 11 G1 IV; +NYSTATIN1 PWD TOPICAL; +PREDNISONE10 MG PO; +PROTONIX40 MG PO; +VITAMIN D2000 UNIT PO
--- NOTE | 2019-04-19 17:13 | NUR ---
ADMITTED TO ROOM 1113B FROM ACUTE FLOOR. ALERT AND ORIENTED.MULT SKIN TEARS FROM FALL AT HOME PATIENT STATED. T ARM/LEFT ARM L KNEE. BRUISES TO L BREAST AND ARMS/LEGS.SORES TO ARMS/LEGS. CL IN REACH.
[2019-04-19 17:17] VITALS: BP 123/72
[2019-04-20 03:09] VITALS: BP 137/51
--- NOTE | 2019-04-20 06:25 | NUR ---
PT IV IN LAC, PATENT AND FLUSHES WELL, NO BLOOD RETURN NOTED PT IN BED LOWEST POSITION, EYES CLOSED AROUSES EASILY TO VOICE, NO IMMEDIATE NEEDS NOTED,RESPIRATIONS EVEN AND UNLABORED, FLUIDS AND CALL LIGHT WITHIN REACH
--- NOTE | 2019-04-20 08:00 | NUR ---
PT RESTING IN BED WITH EYES OPEN CALL LIGHT IN REACH WILL MONITER
[2019-04-20 08:14] VITALS: BP 118/73
[2019-04-20 14:05] VITALS: Ht 180.3 cm; Wt 131.5 kg
--- NOTE | 2019-04-20 17:58 | NUR ---
PT RESTING IN BED WITH EYES OPEN CALL LIGHT IN REACH WILL MONITER
--- NOTE | 2019-04-20 19:45 | NUR ---
PT RESTING QUIETLY. CL IN REACH. NO DISTRESS NOTED. IN ROOM. PT AWAKES TO VERBAL STIMULI. A/O X4. O2 ON 3L VIA NC. BOWEL ACTIVE X4. BED IN LOW SIDE RAILS X2. WILL CONTINUE TO MONITOR.
[2019-04-20 20:00] VITALS: BP 91/62
--- NOTE | 2019-04-21 01:30 | NUR ---
PT RESTING QUIETLY. CL IN REACH. NO DISTRESS NOTED. RESP EVEN AND UNLABORED. WCTM
--- NOTE | 2019-04-21 03:17 | NUR ---
I have reviewed this patient and I concur with the Shift Assessment completed by the Licensed Practical Nurse today this shift.
--- NOTE | 2019-04-21 05:45 | NUR ---
ASSISTED TO AND FROM BATHROOM. DENIES FURTHER NEEDS. CL IN REACH. BED IN LOW. IV INTACT MERREM RUNNING AT THIS TIME. BACK IN BED. WCTM
[2019-04-21 08:18] LABS: BASOPHILS 0.3 % (0-2); EOSINOPHILS 0.8 % (0-7); HEMATOCRIT 34.3 % (36.0-48.0); HEMOGLOBIN 10.9 g/dL (12-16); IMMATURE GRANULOCYTES 3.5 % (0-5); LYMPHOCYTES 33.7 % (15-50); MCH 27.9 pg (26.0-34.0); MCHC 31.8 g/dL (31.0-37.0); MCV 87.7 fL (80.0-100.0); MONOCYTES 10.8 % (2-11); NEUTROPHILS 50.9 % (40-80); PLATELET COUNT 208 10x3/uL (130-400); RBC 3.91 10x6/uL (4.00-5.40); WBC 9.3 10x3/uL (4.8-10.8)
[2019-04-21 08:34] LABS: ANION GAP 8.7 mmol/L (8-16); CARBON DIOXIDE 32.1 mmol/L (21.0-32.0); CREATININE - SERUM 1.4 mg/dL (0.6-1.3); POTASSIUM - SERUM 4.8 mmol/L (3.5-5.1)
[2019-04-21 08:42] VITALS: BP 90/50
--- NOTE | 2019-04-21 09:05 | NUR ---
PT AM MEDS ADMINISTERED. PT DENIES NEEDS. WCTM.
--- NOTE | 2019-04-21 11:40 | NUR ---
PATIENT ADMITTED TO REHAB FROM ACUTE FLOOR. DR. BURTON IS HER PCP. SHE IS FOLLOWED BY DR. RESENDEZ DUE TO HAVING LUNG CA. SHE HAS HOME O2. DSICHARGE PLANS ARE FOR HER TO RETURN HOME. WILL CONTINUE TO FOLLOW WITH PATIENT.
--- NOTE | 2019-04-21 17:33 | NUR ---
PT EATING DINNER, DENIES NEEDS. WCTM.
[2019-04-21 19:30] VITALS: BP 87/59
--- NOTE | 2019-04-21 19:45 | NUR ---
AWAKE AND ALERT. O2/3L ON PER NASAL CANNULA. RESTING IN BED WITH RESPIRATIONS UNLABORED. STATES SHE HAD SOME WEAKNESS TODAY AND LOW BLOOD PRESSURE. CURRENT BLOOD PRESSURE 87/59. FEET/LOWER EXRREMITIES ELEVATED. WILL CONTINUE TO MONITOR. SALINE LOCK IN LEFT AC INTACT WITH NO SIGNS OF INFILTRATION. ON ANTIBIOTIC THERAPY WITH NO SIGNS OF ADVERSE REACTIONS. CALL LIGHT IN REACH.
--- NOTE | 2019-04-21 23:45 | NUR ---
RESTING IN BED WITH RESPIRATIONS UNLABORED AND EYES CLOSED. NO DISTRESS NOTED. CALL LIGHT IN REACH.
[2019-04-22 00:55] VITALS: BP 85/55
--- NOTE | 2019-04-22 00:56 | NUR ---
BLOOD PRESSURE 85/55. FEET ELEVLATED. ALERT AND ORIENTED. RESPIRATIONS UNLABORED.
--- NOTE | 2019-04-22 03:41 | NUR ---
CONTINUES RESTING IN BED WITH EYES CLOSED AND RESPIRATIONS UNLABORED. O2/3L ON PER NASAL CANNULA. CALL LIGHT IN REACH
--- NOTE | 2019-04-22 05:34 | NUR ---
QUIET HOURS. HAS BEEN UP X 1 TO BATHROOM. O2/3L ON PER NASAL CANNULA. NO ACUTE CHANGES IN CONDITION THIS SHIFT. CALL LIGHT IN REACH. MESSAGE LEFT FOR DR STRATTON ON ROUDING SHEET ABOUT BLOOD PRESSURES.
--- NOTE | 2019-04-22 08:09 | NUR ---
PT PARTICIPATING IN THERAPY AT THIS TIME. UNABLE TO TOLERATE SITTING UP IN CHAIR. O2 SATS DROPPED TO 88. PT ASSISTED BACK TO BED AND IS CURRENTLY SITTING UP EATING BREAKFAST WITH OT. ERIN.
--- NOTE | 2019-04-22 09:57 | NUR ---
PT AM MEDS ADMINISTERED. PT DENIES NEEDS. WCTM.
[2019-04-22 10:28] VITALS: BP 89/46
--- NOTE | 2019-04-22 17:31 | NUR ---
PT SITTING UP IN BED EATING DINNER. DRESSING CHANGED TO IV SITE. PT DENIES NEEDS. WCTM.
--- NOTE | 2019-04-22 19:30 | NUR ---
PT IS RESTING IN BED WITH EYES CLOSED. AWAKENS EASILY TO VERBAL STIMULI. ALERT AND ORIENTED X 3. DENIES ACUTE DISCOMFORT AT THIS TIME. NO SOB NOTED. O2 IS ON @ 3LPM PER NC. SR'S ARE UP X 3 IN BED. CALL LIGHT AND BEDSIDE TABLE ARE WITHIN EASY REACH.
--- NOTE | 2019-04-22 21:51 | NUR ---
RESTING IN BED WITH EYES CLOSED. NO ACUTE DISTRESS NOTED.
--- NOTE | 2019-04-23 00:03 | NUR ---
RESTING IN BED WITH EYES CLOSED.
--- NOTE | 2019-04-23 02:52 | NUR ---
I have reviewed this patient and I concur with the Shift Assessment completed by the Licensed Practical Nurse today this shift.
--- NOTE | 2019-04-23 06:21 | NUR ---
PT RESTING IN BED WITH EYES CLOSED. NO ACUTE DISTRESS NOTED.
[2019-04-23 08:52] VITALS: BP 111/64
--- NOTE | 2019-04-23 09:10 | NUR ---
PT AM MEDS ADMINISTERED. PT DENIES NEEDS. WCTM.
--- NOTE | 2019-04-23 15:55 | NUR ---
PT IV RESITED TO RT AC.
[2019-04-23 19:01] VITALS: BP 112/63
--- NOTE | 2019-04-23 19:34 | NUR ---
PT IS RESTING IN BED WITH EYES CLOSED. RESPS ARE EVEN AND UNLABORED. NO ACUTE DISTRESS NOTED. O2 IS ON @ 3LPM PER NC. SR'S ARE UP X 3 IN BED. CALL LIGHT AND BEDSIDE TABLE ARE WITHIN EASY REACH.
--- NOTE | 2019-04-23 21:42 | NUR ---
PT VOICED COMPLAINT OF HER SHIRT BEING WET. THE RIGHT SIDE OF HER SHIRT AND BED LINENS UNDER THAT SIDE NOTED TO BE SATURATED. PT STATED SHE DID NOT KNOW HOW THEY GOT WET. I WAS UNABLE TO DETERMINE THE CAUSE. BED LINENS AND PTS SCRUBS CHANGED. PT VOICED FEELING MUCH BETTER AFTERWARDS.
--- NOTE | 2019-04-24 00:11 | NUR ---
PT RESTING IN BED WITH EYES CLOSED.
--- NOTE | 2019-04-24 02:19 | NUR ---
I have reviewed this patient and I concur with the Shift Assessment completed by the Licensed Practical Nurse today this shift.
--- NOTE | 2019-04-24 06:03 | NUR ---
PT ASSISTED UP TO BATHROOM WITH MAX ASSIST FOR BED TRANSFERS. SBA FOR TOILETING. SHE BECAME VERY SOB WHILE UP ON TOILET, EVEN WITH O2 ON. IT SUBSIDED QUICKLY AFTER RETURN TO BED. SMALL AMOUNT OF WEEPING EDEMA NOTED IN BUE.
[2019-04-24 07:17] LABS: BASOPHILS 0.3 % (0-2); EOSINOPHILS 1.3 % (0-7); HEMATOCRIT 32.9 % (36.0-48.0); HEMOGLOBIN 10.5 g/dL (12-16); IMMATURE GRANULOCYTES 1.8 % (0-5); LYMPHOCYTES 34.5 % (15-50); MCH 27.7 pg (26.0-34.0); MCHC 31.9 g/dL (31.0-37.0); MCV 86.8 fL (80.0-100.0); MONOCYTES 13.1 % (2-11); PLATELET COUNT 214 10x3/uL (130-400); RBC 3.79 10x6/uL (4.00-5.40); RDW 17.2 % (11.5-14.5); WBC 10.7 10x3/uL (4.8-10.8)
[2019-04-24 07:39] LABS: ANION GAP 9.9 mmol/L (8-16); CALCIUM 9.2 mg/dL (8.5-10.1); CARBON DIOXIDE 31.9 mmol/L (21.0-32.0); CREATININE - SERUM 1.2 mg/dL (0.6-1.3); POTASSIUM - SERUM 4.8 mmol/L (3.5-5.1)
--- NOTE | 2019-04-24 08:05 | NUR ---
PT AM MEDS ADMINISTERED. PT DENIES NEEDS. WCTM.
[2019-04-24 09:00] VITALS: BP 133/68
--- NOTE | 2019-04-24 14:53 | NUR ---
Nutrition Follow-up: Diet: Diabetic +Glucerna with meals and Dieter with breakfast and dinner PO intake: 27% x 6 Labs reviewed, Significant meds: SSI Wt: 290# (04/20/19) No BM since admit x 3 days Open blister to left patricia Continue oral nutrition supplements and encourage PO intake RD Following
[2019-04-24 19:46] VITALS: BP 130/108
--- NOTE | 2019-04-24 19:46 | NUR ---
GREETED PATIENT AND INTRODUCED MYSELF HER NURSE. PATIENT IS LAYING IN BED DROWSY AT THIS TIME, BUT AWAKES WHEN TOUCHED OR TALKED TO. CALL LIGHT IN REACH. VITAL SIGNS OBTAINED.
--- NOTE | 2019-04-24 22:30 | NUR ---
DC'D PERIPHERAL IV IN RT AC. TIP WAS PULLED OUT BY PATIENT.
--- NOTE | 2019-04-24 22:57 | NUR ---
PT CLEANED OF INCONTINENT URINE. COMPLETE LINEN CHANGE. CALL LIGHT IN REACH
--- NOTE | 2019-04-25 03:06 | NUR ---
NEW PERIPHRAL 22 GAUGE IV IN RT. FOREARM. FIRST ATTEMPT. PT. TOLERATED PROCEDURE.
--- NOTE | 2019-04-25 05:52 | NUR ---
PATIENT RESTING WITH EYES CLOSED. PATIENT CONTINUES TO TALK IN HER SLEEP AND JERK HER ARMS AROUND AND TRY TO PULL OUT IV IN RIGHT FOREARM. STOCKINETTE COVERING IV FOR PROTECTION. CALL LIGHT IN REACH.
--- NOTE | 2019-04-25 08:00 | NUR ---
PT RESTING IN BED WITH EYES CLOSED PT WAKES EASILY BUT FALLS BACK TO SLEEP WILL NOT EAT BREAKFAST PT UPPER AND LOWER EXTREMITIES HAVE PITTING AND WEEPING EDEMA WILL NOTIFY DR OF PT CHANGE. CALL LIGHT IN REACH WILL MONITER
[2019-04-25 08:10] VITALS: BP 122/62
--- NOTE | 2019-04-25 08:40 | RHP ---
PATIENT: CHALO MA MEDICAL RECORD: [id number] ACCOUNT: [id number] LOCATION:[place] [address] : 43 ADMISSION DATE: 04/19/19 REHABILITATION HISTORY AND PHYSICAL EXAMINATION POST ADMISSION PHYSICIAN EXAMINATION ADMITTING DIAGNOSES: Debility secondary to exacerbation of chronic obstructive pulmonary disease. HISTORY OF PRESENT ILLNESS: The patient is a 73-year-old female patient, presented to ED on 04/17/2019 after a fall at home. She complained of pain over her right upper to mid abdomen, made worse with any type of movement or palpation over this area. The patient had been falling more lately. Over the past several days, had needed maximal assistance to do simple activities of daily living such as transferring, bathing, and going to the bathroom. Overall, she feels she had lost some strength over the past several weeks, complained of pain over her left rib area, just below her mammary crease of her left breast. She was seen at the [facility] the weekend prior to this and had x-rays done of her chest as well as lumbar spine. Physical exam did show some kiad-si-rsbufswc ecchymosis over the right upper anterior chest without crepitus or subcutaneous air noted. There was tenderness to palpation over the right upper quadrant but no rebound, no guarding. She had coarse crackles throughout both lung perez. CT of her abdomen and pelvis showed no acute intra-abdominal or pelvic abnormality. She was admitted for routine care. She was placed on hypoglycemia protocol, electrolyte protocol, morphine p.r.n., Zofran, DuoNeb updrafts. Previously, she was moderately independent with a rolling walker for mobility and ADLs. Currently, she is mod to max assist for ADLs and mobility. She tires easily and dyspnea upon exertion. She would like to regain her strength and hopefully return back home. COMORBIDITIES: In this patient include UTI, morbid obesity, chronic kidney disease, normocytic anemia, dyslipidemia, diabetes, hyperglycemia, hypertension, COPD, got a history of diffuse idiopathic pulmonary neuroendocrine cell hyperplasia, falls, home O2 dependence, neuropathy, history of hypotension, asthma, right upper quadrant pain, fatigue, and weakness. PAST MEDICAL HISTORY: Significant for neuropathy, diabetes, hypotension, hypertension, asthma, morbid obesity, arthritis, chronic back pain, menopause, and depression. PAST SURGICAL HISTORY: Includes bilateral knee replacements, tonsillectomy and adenoidectomy, gallbladder surgery, and back surgery. ALLERGIES: SULFA AND CELEBREX. CURRENT MEDICATIONS: Include Floranex 460 mg daily, hydrochlorothiazide 12.5 mg daily, Cozaar 100 mg daily, spironolactone 25 mg daily, Diflucan 150 mg daily for 4 dosages, Celexa 40 mg daily, vitamin D 2000 units daily, Protonix 40 mg daily. She is on a low-resistant sliding scale with Humalog, Detrol 2 mg HISTORY AND PHYSICAL [id number] MA,CHALO b.i.d., Accolate 20 mg b.i.d., Zocor 40 mg at bedtime, Merrem 1 gram q. 8 hours p.r.n., Neurontin 300 mg b.i.d. She is on a glucose replacement protocol at this time, DuoNeb updrafts, and hydrocodone 5/325 one tab q. 4 hours p.r.n. HABITS: No current alcohol or tobacco use. FAMILY HISTORY: Noncontributory. SOCIAL HISTORY: The patient hopes to return back home to her prior level of functioning. She lives in [place], [place]. REVIEW OF SYSTEMS: GENERAL: Does complain of some weakness and fatigue. HEENT: Denies cold, cough, or congestion. CARDIOVASCULAR: Denies any chest pain. LUNGS: Does complain of shortness of breath with any type of activity. PHYSICAL EXAMINATION: VITAL SIGNS: Stable, afebrile. GENERAL: A morbidly obese female, in no distress upon exam. HEENT: Normocephalic and atraumatic. Mucosa moist. NECK: Supple, with no lymphadenopathy. LUNGS: Clear in upper perez. NEUROLOGIC: Decreased breath sounds in both bases, probably secondary to her body habitus. CARDIOVASCULAR: Regular rate and rhythm. She does have a holosystolic murmur. ABDOMEN: Soft, benign, and nondistended. Positive bowel sounds times 4. EXTREMITIES: No clubbing, cyanosis or edema. NEUROLOGIC: She does have 2/5 muscular strength in her lower extremities. ASSESSMENT: This is a 73-year-old female patient who was admitted to rehab with a working diagnosis of acute exacerbation of chronic obstructive pulmonary disease and debility associated with this. The patient has potential to make improvement. We instituted the following multidisciplinary therapies including, but not limited to physical, occupational, respiratory, speech, nutritional services, prosthetics and orthotics. Given her complex medical condition and risks for more complications, rehabilitation services cannot be provided at a low level of care such as skilled nurse facility. PLAN: 1. Admit to [facility] for intensive inpatient therapy to include the following disciplines: A. Physical therapy to improve gait, all transfer skills and bed mobility to a modified independent level. B. Occupational therapy to a modified independent level. C. Case management to assist with discharge planning and placement options. D. Nutrition to assist with nutritional needs. E. Rehabilitation nursing to assist in monitoring the patient's underlying medical conditions and to assist with any type of bowel or bladder management. 2. The patient's current medication will be continued. 3. Placed on standard fall precautions. 4. The patient's estimated length of stay is approximately 7-10 days. 5. We will discuss the patient during care team staff meeting this week. HISTORY AND PHYSICAL [id number] CHALO MA TRANSINT:[id number] Voice Confirmation ID: [id number] DOCUMENT ID: [id number] RADHIKA notes whether there has been none or any medical/functional change since admission: - No change since preadmission screen. RADHIKA attests patient continues to be appropriate for IRF: - Continues to be appropriate. ADOLFO STRATTON MD at 0840 CC: [id number] DICTATION DATE: 04/20/19 0831 CARROTING MACHINE OFFBEARER: 04/20/19 0913 ADM IN [facility] [address] [place] [address]
--- NOTE | 2019-04-25 09:24 | NUR ---
DUE TO CHANGE IN MEDICAL CONDTION PATIENT DISCHARGED FROM REHAB AND ADMITTED TO ACUTE FLOOR.
--- NOTE | 2019-04-25 13:00 | NUR ---
PT TRANSFERED TO ACUTE CARE FLOOR PER DRS ORDERS PT TOLERATED TRANSFER WELL
--- NOTE | 2019-04-25 13:04 | NUR ---
RECEIVED PATIENT TO ROOM 2139. PATIENT SLEEPY BUT OPENS EYES TO NAME BEING CALLED. O2 VIA NC AT 3L/MIN. FAMILY AT BEDSIDE.
== END 2019-04-25 13:32 | disposition short-term general hospital (02) | DRG 948 ==
LOC: D.REHAB 16:25
PROVIDERS: ADMIT Emergency Medicine; ATTEND Emergency Medicine
DX: R53.81 Other malaise (principal); N39.0 Urinary tract infection, site not specified; E66.01 Morbid (severe) obesity due to excess calories; E11.22 Type 2 diabetes mellitus with diabetic chronic kidney disease; I12.9 Hypertensive chronic kidney disease with stage 1 through stage 4 chronic kidney disease, or unspecified chronic kidney disease; N18.9 Chronic kidney disease, unspecified; E78.5 Hyperlipidemia, unspecified; E11.65 Type 2 diabetes mellitus with hyperglycemia; R53.1 Weakness; J45.909 Unspecified asthma, uncomplicated; E11.40 Type 2 diabetes mellitus with diabetic neuropathy, unspecified; Z99.81 Dependence on supplemental oxygen; R53.83 Other fatigue; R10.11 Right upper quadrant pain; J44.9 Chronic obstructive pulmonary disease, unspecified; D64.9 Anemia, unspecified

== ENCOUNTER 2019-04-25 12:46 | Inpatient (IN) | payer MEDICARE, BC ==
[~2019-04-25] VITALS: Ht 180.3 cm; Wt 118.6 kg
--- NOTE | 2019-04-25 13:20 | NUR ---
KAROL RECEIVED TO ROOM 2139 AT APPROX 1310. PATIENT WITH EYES CLOSED, VERY SLEEPY. PATIENT AROUSES TO VOICE. PATIENT DISORIENTED TO TIME. PATIENT THINKS IT IS 2009. PATIENT WITH FAMILY AT BEDSIDE. CALL LIGHT WITHIN REACH.
--- NOTE | 2019-04-25 13:48 | NUR ---
PATIENT WITH 22 GAUGE TO RIGHT FOREARM DATED 04/25/19. URINE COLLECTED AT THIS TIME VIA STERILE TECHNIQUE, IN AND OUT CATH. NO DISTRESS. ASSESSMENT COMPLETE.
[2019-04-25 14:02] LABS: BASOPHILS 0.3 % (0-2); EOSINOPHILS 1.2 % (0-7); HEMATOCRIT 31.1 % (36.0-48.0); HEMOGLOBIN 10.1 g/dL (12-16); IMMATURE GRANULOCYTES 1.1 % (0-5); MCH 28.1 pg (26.0-34.0); MCHC 32.5 g/dL (31.0-37.0); MCV 86.4 fL (80.0-100.0); MEAN PLATELET VOLUME 10.3 fL (7.4-10.4); NEUTROPHILS 43.4 % (40-80); PLATELET COUNT 227 10x3/uL (130-400); WBC 9.6 10x3/uL (4.8-10.8)
[2019-04-25 14:15] LABS: % SATURATION 16 % (15-55); IRON 35 ug/dl (35-150); TOTAL IRON BIND CAPACITY 215 ug/dl (260-445); UNSAT IRON BIND CAPACITY 180 ug/dl (150-375)
[2019-04-25 14:25] LABS: ALBUMIN 2.3 g/dL (3.4-5.0); BILIRUBIN - TOTAL 0.68 mg/dL (0.2-1.3); CALCIUM 8.9 mg/dL (8.5-10.1); CARBON DIOXIDE 33.5 mmol/L (21.0-32.0); CREATININE - SERUM 1.2 mg/dL (0.6-1.3); POTASSIUM - SERUM 4.5 mmol/L (3.5-5.1); PROTEIN - SERUM 5.8 g/dL (6.4-8.2)
--- NOTE | 2019-04-25 14:38 | NUR ---
PATIENT JERKS AND MUMBLES IN HER SLEEP. AWOKEN PATIENT AND ASK IF SHE IS DREAMING OR HURTING AND SHE DENIES PAIN, AND STATES SHE IS PROBABLY DREAMING. FAMILY GONE HOME FOR THE DAY. IV ABT INFUSING AT THIS TIME. NO DISTRESS. CALL LIGHT WITHIN REACH.
[2019-04-25 14:44] LABS: APPEARANCE CLEAR (CLEAR); BILIRUBIN NEGATIVE (NEGATIVE); COLOR YELLOW (YELLOW); GLUCOSE NEGATIVE (NEGATIVE); KETONE NEGATIVE (NEGATIVE); NITRITE NEGATIVE (NEGATIVE); PROTEIN NEGATIVE (NEGATIVE); SPECIFIC GRAVITY 1.015 (1.005-1.020); UROBILINOGEN NORMAL (NORMAL)
[2019-04-25 14:47] LABS: EPITHELIAL CELLS OCC /hpf (0-5); RED CELLS - URINE 25-50 /hpf (0-5); WHITE CELLS - URINE 25-50 /hpf (0-5)
[2019-04-25 14:50] LABS: BACTERIA FEW /hpf (NONE SEEN)
[2019-04-25 14:56] VITALS: BP 135/65
--- NOTE | 2019-04-25 16:25 | NUR ---
FSBS 124. NO INSULIN PER SLIDING SCALE. CALL LIGHT WITHIN REACH.
--- NOTE | 2019-04-25 19:10 | NUR ---
TALKED TO SHELL TERRY, 1900, THIS EXAM WAS JUST DONE ABOUT AN HOUR AGO AND WAS EARLIER ORDERED BY DR SIU. I AM CANCELLING THIS REQUEST. GC
[2019-04-25 19:24] VITALS: BP 131/108; BMI 40.5
--- NOTE | 2019-04-25 19:40 | NUR ---
PT CARE ASSUMED. RR EVEN AND UNLABORED. PT ASLEEP BUT EASY TO AROUSE. NO S/S OF DISTRESS NOTED. NO VOICED C/O OR CONCERNS. WILL CPOC.
[2019-04-25 20:00] VITALS: BP 115/63
[2019-04-26 04:00] VITALS: BP 118/60
[2019-04-26 05:04] LABS: BASOPHILS 0.4 % (0-2); EOSINOPHILS 1.3 % (0-7); HEMATOCRIT 30.7 % (36.0-48.0); HEMOGLOBIN 9.9 g/dL (12-16); IMMATURE GRANULOCYTES 1.3 % (0-5); LYMPHOCYTES 41.1 % (15-50); MCH 27.7 pg (26.0-34.0); MCHC 32.2 g/dL (31.0-37.0); MEAN PLATELET VOLUME 10.1 fL (7.4-10.4); NEUTROPHILS 41.9 % (40-80); PLATELET COUNT 232 10x3/uL (130-400); RBC 3.57 10x6/uL (4.00-5.40); RDW 17.1 % (11.5-14.5)
[2019-04-26 05:18] LABS: ANION GAP 7.3 mmol/L (8-16); CALCIUM 8.6 mg/dL (8.5-10.1); CARBON DIOXIDE 34.3 mmol/L (21.0-32.0); CREATININE - SERUM 1.2 mg/dL (0.6-1.3); POTASSIUM - SERUM 4.6 mmol/L (3.5-5.1)
--- NOTE | 2019-04-26 05:36 | NUR ---
I have reviewed this patient and I concur with the Shift Assessment completed by the Licensed Practical Nurse today this shift.
--- NOTE | 2019-04-26 08:06 | NUR ---
PT RESTIN COMFORTABLY IN BED WITH EYES CLOSED. BREATHING EVEN AND UNLABORED NO S/S OF DISTRESS. BED IN LOWEST POSITION, BED RAILS X2, CALL LIGHT WIHIN REACH. WILL CTM.
--- NOTE | 2019-04-26 08:30 | NUR ---
PT GONE TO CT VIA BED.
[2019-04-26 08:53] VITALS: BP 119/55
--- NOTE | 2019-04-26 08:59 | NUR ---
PT BACK FROM CT.
[2019-04-26 12:52] VITALS: BP 103/69
--- NOTE | 2019-04-26 13:08 | NUR ---
PT RESTING COMFORTABLY IN BED WITH EYES CLOSED, BREATHING EVEN AND UNLABORED. NO S/S OF DISTRESS NOTED. WILL CTM.
[2019-04-26 14:31] VITALS: BMI 40.4
--- NOTE | 2019-04-26 16:15 | NUR ---
I have reviewed this patient and I concur with the Shift Assessment completed by the Licensed Practical Nurse today this shift.
[2019-04-26 16:27] VITALS: BP 111/64
--- NOTE | 2019-04-26 19:51 | NUR ---
PT UNABLE TO DO METANEB DUE TO AMS.
[2019-04-27] VITALS: BP 115/72
[2019-04-27 04:00] VITALS: BP 113/73
[2019-04-27 06:36] LABS: BASOPHILS 0.3 % (0-2); EOSINOPHILS 1.1 % (0-7); HEMATOCRIT 30.9 % (36.0-48.0); HEMOGLOBIN 10.1 g/dL (12-16); IMMATURE GRANULOCYTES 1.1 % (0-5); LYMPHOCYTES 36.6 % (15-50); MCH 28.1 pg (26.0-34.0); MCHC 32.7 g/dL (31.0-37.0); MCV 86.1 fL (80.0-100.0); MEAN PLATELET VOLUME 10.6 fL (7.4-10.4); MONOCYTES 12.9 % (2-11); PLATELET COUNT 250 10x3/uL (130-400); RBC 3.59 10x6/uL (4.00-5.40); RDW 17.2 % (11.5-14.5); WBC 10.1 10x3/uL (4.8-10.8)
[2019-04-27 06:55] LABS: ANION GAP 6.4 mmol/L (8-16); CALCIUM 8.6 mg/dL (8.5-10.1); CARBON DIOXIDE 32.2 mmol/L (21.0-32.0); CREATININE - SERUM 1.1 mg/dL (0.6-1.3); POTASSIUM - SERUM 4.6 mmol/L (3.5-5.1)
--- NOTE | 2019-04-27 07:44 | NUR ---
PT UNABLE TO DO METANEB NOT ABLE TO SIT UP
--- NOTE | 2019-04-27 08:00 | NUR ---
PT RESTING IN BED, FAMILY AT BEDSIDE, SHIFT ASSESSMENT PERFORMED. DENIES ANY NEEDS AT THIS TIME, WILL CONT TO FOLLOW POC
[2019-04-27 09:55] VITALS: BP 123/68
--- NOTE | 2019-04-27 12:20 | NUR ---
PT RESTING IN BED, DENIES ANY NEEDS AT THIS TIME, WILL CONT TO FOLLOW POC
[2019-04-27 14:47] VITALS: BP 157/86
--- NOTE | 2019-04-27 16:13 | NUR ---
Pt has bruising on bilateral arms and legs/knees. Many scabs/sores on bilateral arms, calves, forearms and elbows. Bactroban ointment has been ordered BID. Recommendations: air overlay mattress turn/repositon q 2 hours while in bed bridge/float heels continue with bactroban BID - if covering, only use nonstick gauze and adaptic Wound care continues to monitor.
--- NOTE | 2019-04-27 18:02 | NUR ---
PT RESTING IN BED, FAMILY AT BEDSIDE, DENIES ANY NEEDS AT THIS TIME, WILL CONT TO FOLLOW POC
--- NOTE | 2019-04-27 18:50 | NUR ---
PIV TO RIGHT FA AND RIGHT AC INFILTRATED BOTH PIV REMOVED WITH CATHETER TIP INTACT
--- NOTE | 2019-04-27 19:43 | NUR ---
PT CARE ASSUMED. RR EVEN AND UNLABORED. O2 AT 3L NC. NO S/S OF DISTRESS NOTED. DENIES PAIN OR DISCOMFORT AT THIS TIME. PRESENT AT BEDSIDE. CALL LIGHT IN REACH. WILL CTM.
[2019-04-27 20:00] VITALS: BP 128/73
[2019-04-28] VITALS: BP 120/62
[2019-04-28 04:00] VITALS: BP 109/66
[2019-04-28 05:47] LABS: BASOPHILS 0.3 % (0-2); EOSINOPHILS 0 % (0-7); HEMATOCRIT 30.3 % (36.0-48.0); HEMOGLOBIN 9.8 g/dL (12-16); IMMATURE GRANULOCYTES 1.2 % (0-5); LYMPHOCYTES 36.8 % (15-50); MCH 27.8 pg (26.0-34.0); MCHC 32.3 g/dL (31.0-37.0); MCV 85.8 fL (80.0-100.0); MONOCYTES 3.4 % (2-11); NEUTROPHILS 58.3 % (40-80); PLATELET COUNT 248 10x3/uL (130-400); RBC 3.53 10x6/uL (4.00-5.40); RDW 16.8 % (11.5-14.5)
[2019-04-28 05:50] LABS: WBC 6.8 10x3/uL (4.8-10.8)
[2019-04-28 07:41] LABS: ANION GAP 9.5 mmol/L (8-16); CARBON DIOXIDE 31.2 mmol/L (21.0-32.0); CREATININE - SERUM 1.3 mg/dL (0.6-1.3)
[2019-04-28 07:44] LABS: POTASSIUM - SERUM 5.7 mmol/L (3.5-5.1)
[2019-04-28 08:00] VITALS: BP 94/68
--- NOTE | 2019-04-28 09:41 | NUR ---
Rehab Prescreening Consult recieved and the chart has been reviewed. This patient was just discharged to the acute floor from rehab. While on the rehab unit she was not able to participate in the required 3 hrs of therapy that Medicare requires. Rehab will follow her to see how she progresses with therapy. Pati Owens RN Clinical Liaison, Rehab
--- NOTE | 2019-04-28 10:47 | EC ---
PATIENT:CHALO MA DATE OF SERVICE: 04/25/19 SEX: F MEDICAL RECORD: [id number] DATE OF : 43 LOCATION:D.M2 D.213 AGE OF PATIENT: 73 ADMISSION DATE: 04/25/19 REFERRING PHYSICIAN: INTERPRETING PHYSICIAN: JEFF MELTON MD ECHOCARDIOGRAM REPORT ECHO CHARGES 4 ECHO COMPLETE Date: 04/25/19 CLINICAL DIAGNOSIS: CHF ECHOCARDIOGRAPHIC MEASUREMENTS (adult normal given) AC root (d.<3.7cm) 2.7 cm LV Septum d (<1.2 cm> 1.0 cm Valve Excursion 1.7 cm LV Septum (systole) 1.1 cm Left Atria (s.<4.0cm> 2.4 cm LVPW d(<1.2cm) 1.1 cm RV (d.<2.3cm) 3.1 cm LVPW (sytole) 1.2 cm LV diastole(<5.6CM) 5.9 cm MV E-F(>70mm/sec) cm LV systole 5.0 cm LVOT Diameter 1.9 cm MV exc.(>10mm) cm Est.ejection fraction (50-75%) % DOPPLER: LVIT cm/sec A 87 cm/sec E 59 cm/sec LA cm/sec RVSP 18.5 mmHg LVOT 116 cm/sec AOP1/2T m/s Asc. Ao 169 cm/sec RVOT 60 cm/sec RA cm/sec PA 89 cm/sec AV Gradient Peak 11.4 mmHg AV Mean 6.4 mmHg AV Area 2.1 cm MV Gradient Peak 3.3 mmHg MV Mean 1.6 mmHg MV Area cm COMMENTS: Clinical Cytopathologist: Kanika COBB Fire Marshal Refinery: Jone Melton TAPE# PACS Pericardial Effusion N DATE OF SERVICE: 04/25/2019 PROCEDURE: Echocardiogram. FINDINGS: 1. Left ventricular chamber size is within normal limits. Left ventricular systolic function is normal. Overall ejection fraction estimated at 60%. 2. Left atrium, right atrium, and right ventricular chamber sizes are within normal limits. 3. Valvular structures have normal structure and motion. ECHOCARDIOGRAM REPORT [id number] CHALO MA 4. Doppler interrogation reveals no significant valvular insufficiency or stenosis and pulmonary systolic pressure is normal estimated 18 mmHg. 5. No evidence of pericardial effusion or left ventricular thrombus. TRANSINT:[id number] Voice Confirmation ID: [id number] DOCUMENT ID: [id number] JEFF MELTON MD at 1047 CC: [id number] DICTATION DATE: 04/26/19 1231 WOODWORKING MACHINE SETTER: 04/26/19 1300 ADM IN [facility] [address] [place] [id number]
[2019-04-28 11:52] LABS: ANION GAP 10.4 mmol/L (8-16); CALCIUM 8.8 mg/dL (8.5-10.1); CARBON DIOXIDE 31.3 mmol/L (21.0-32.0); CREATININE - SERUM 1.1 mg/dL (0.6-1.3); POTASSIUM - SERUM 5.7 mmol/L (3.5-5.1)
[2019-04-28 12:00] VITALS: BP 111/59
--- NOTE | 2019-04-28 12:09 | NUR ---
Nutrition Follow-up: Pt disoriented. reports PO intake improved today. 75% of breakfast eaten this AM. Likes Glucerna but not Dieter. Per ST, continue with puree and nectar thick liquids. Wound care reports many scabs/sores on bilateral arms, calves, forearms, and elbows. Diet: Diabetic Pureed with Farrell Thick Liquids Glucerna with meals, Dieter BID Wt: 290# Last BM: 04/24 per chart Labs noted: Glu 188, K+ 5.7 Meds noted: Solumedrol, Humalog, HCTZ, Folate, Vitamin D, Miralax Continue current diet as tolerated. D/C Dieter 2/2 pt preference. Encourage PO intake. RD following.
--- NOTE | 2019-04-28 12:43 | NUR ---
THE PATIENT WAS LYING IN BED AND WATCHING TELEVISION WHEN STAFF ENTERED HER ROOM. BED IS IN THE LOW POSITION WITH SIDERAILS X2 AND CALL LIGHT WITHIN REACH. PRESENT. THE PATIENT WAS EDUCATED ON THE USE OF A CALL LIGHT AND DEMONSTRATES UNDERSTANDING VIA TEACHBACK METHOD. THE PATIENT APPEARS COMFORTABLE WITH NO QUESTIONS OR COCNERNS AT THIS TIME.
--- NOTE | 2019-04-28 14:24 | MORECARE ---
CASE MANAGEMENT DISCHARGE SUMMARY PATIENT: CHALO MA UNIT: [id number] ADM DATE: 04/25/19 AGE: 73 : 44 SEX: F ROOM/BED: D.2139 AUTHOR: DEBBIE VIRAMONTES PHYSICIAN: REFERRING PHYSICIAN: JED SIU MD DATE OF SERVICE: 04/28/19 Discharge Plan Patient Name: CHALO MA Facility: [facility]:[place] : 1945 Planned Disposition: Home with Home Health Anticipated Discharge Date: Discharge Date: Expected LOS: Initial Reviewer: [email or web address] Initial Review Date: 04/25/2019 Generated: 04/28/19 3:24 pm Coverage Notice Reviewer: [id number] - Chinedu Benitez Notice Issued Date-Time: 04/28/2019 13:45 Notice Type: Patient Choice Letter Notice Delivered To: Family Member Relationship to Patient: Spouse Frit Mixer And Burner Name: TITA MA Delivery Method: HAND - Hand Delivered Chary Days: Prior Verbal Notification: Recipient Understood Notice: Yes Recipient Signature: Yes Med Rec Note Co-signed by Attending: Coverage Notice Comment: HOME HEALTH ([place]) [facility] Patient Name: CHALO MA Page 16600 at 1424 All edits/amendments must be made on the electronic document DICTATION DATE: 04/28/191423 DERRICK BOAT RUNNER: AVINASH 04/28/19 1424 RPT#: [id number] DC DATE: STATUS: ADM IN [facility] [address] [place] [address] END OF REPORT
--- NOTE | 2019-04-28 14:33 | MORECARE ---
CASE MANAGEMENT DISCHARGE SUMMARY PATIENT: CHALO MA UNIT: [id number] ADM DATE: 04/25/19 AGE: 73 : 44 SEX: F ROOM/BED: D.6834 AUTHOR: ANA MDOC PHYSICIAN: REFERRING PHYSICIAN: JED SIU MD DATE OF SERVICE: 04/28/19 Discharge Plan Patient Name: CHALO MA Facility: [facility]:[place] : 1945 Planned Disposition: Home with Home Health Anticipated Discharge Date: Discharge Date: Expected LOS: Initial Reviewer: [email or web address] Initial Review Date: 04/25/2019 Generated: 04/28/19 3:33 pm Comments DCP- Discharge Planning Updated by [email or web address]: Chinedu Benitez on 04/28/19 1:[address] Patient Name: CHALO MA Admission Status: Urgent Accout number: [id number] Admission Date: 04-25-2019 : 1945 Admission Diagnosis:SHORTNESS OF BREATH Attending: JED SIU Current LOS: 3 Anticipated DC Date: Planned Disposition: Home with Home Health Primary Insurance: MEDICARE A & B PLANNED EXTERNAL PROVIDER: [facility] Discharge Planning Comments: CM MET WITH PT AND SPOUSE IN ROOM TO DISCUSS DISCHARGE PLANNING AND NEEDS. CHALO MA provided verbal consent to discuss current and ongoing needs with/in the presence of: SPOUSE, EJ. PT REPORTS LIVING AT HOME INDEPENDENTLY WITH HER SPOUSE. PT HAS BEDSIDE COMMODE, CANE, NEBULIZER, HOME AND PORTABLE OXYGEN WALKER AND ELECTRIC WHEELCHAIR. MEDICAL EQUIPMENT PROVIDER IS [facility] PAT[facility]. PT HAS HOME HEALTH WITH [facility] FOR NURSING AND PHYSICAL THERAPY. CM DISCUSSED AVAILABILITY OF HOME HEALTH, REHAB SERVICES AND MEDICAL EQUIPMENT. CM DISCUSSED INPATIENT REHAB PRESCREENING ORDER, DISCUSSED AVAILABILITY OF INPATIENT AND [facility] REHAB, PROVIDERS AND LOCATIONS. PT DENIES DISCHARGE NEEDS AND WANTS TO RETURN HOME WITH HOME HEALTH. PT'S SPOUSE IN AGREEMENT WITH PLAN. PT'S SPOUSE WILL PICK PT UP FOR DISCHARGE HOME. IMPORTANT MESSAGE FROM MEDICARE PROVIDED AND EXPLAINED. CHOICE FOR HOME HEALTH SIGNED. CM DISCUSSED THERAPY PROGRESS AND ASKED PT'S SPOUSE IF HE HAS BEEN HERE FOR THERAPY AND CAN HE ASSIST PT IN HER CURRENT CONDITION SAFELY. PT'S SPOUSE REPORTS HE HAS SEEN THERAPY WORKING WITH PT AND HE CAN PROVIDE THE CARE PT NEEDS AT HOME. PT'S SPOUSE REPORTS PT IS NOT GOING TO REHAB AND WILL BE GOING HOME WITH HOME HEALTH RESUMPTION. CM PROVIDED CM CONTACT INFORMATION AND ASKED THAT PT OR SPOUSE NOTIFY CM IF THEY CHANGE THEIR MIND AND WANT REHAB PLACEMENT PRIOR TO GOING HOME. CM CALLED [facility], , DISCUSSED WITH [facility] WHO CONFIRMED PT IS ACTIVE AND THEY WILL RESUME SERVICES AT DISCHARGE. [facility] AGREES THAT PT WOULD BENEFIT FROM REHAB PRIOR TO RETURN HOME. PT PLANS TO DISCHARGE HOME WITH SPOUSE AND HOME HEALTH RESUMPTION. FOR DISCHARGE HOME WITH HOME HEALTH RESUMPTION, NOTIFY [facility] AT [phone]. FAX DISCHARGE INFORMATION TO [facility] AT [phone]. CM TO CONTINUE TO FOLLOW AND ASSIST NEEDED. Junior Sales Assistant: Chinedu Benitez DCPIA - Discharge Planning Initial Assessment Updated by [id number]: Chinedu Benitez on 04/28/19 2:25 pm * Is the patient Alert and Oriented? Yes * How many steps to enter\exit or inside your home? NONE * PCP DR. BURTON * Pharmacy [facility] IN [place] * Preadmission Environment Home with Family * ADLs Independent * Equipment Bedside Commode Cane Nebulizer Oxygen Power Chair or Electric Scooter * Other Equipment HOME AND PORTABLE OXYGEN [facility] PATIENT [facility] * List name and contact numbers for known caregivers / representatives who currently or will assist patient after discharge: TITA MA, SPOUSE, * Verbal permission to speak to the caregivers and representatives has been obtained from the patient. Yes * Community resources currently utilized Home Health * Please name any agencies selected above. [facility], [facility], THERAPY SERVICES T- [phone], F [phone] * Additional services required to return to the preadmission environment? Yes * Can the patient safely return to the preadmission environment? Yes * Has this patient been hospitalized within the prior 30 days at any hospital? No Coverage Notice Reviewer: [id number] - Chinedu Benitez Notice Issued Date-Time: 04/28/2019 13:45 Notice Type: Patient Choice Letter Notice Delivered To: Family Member Relationship to Patient: Spouse Acquisitions Editor Name: TITA MA Delivery Method: HAND - Hand Delivered Chary Days: Prior Verbal Notification: Recipient Understood Notice: Yes Recipient Signature: Yes Med Rec Note Co-signed by Attending: Coverage Notice Comment: HOME HEALTH ([place]) - [facility] Last DP export: 04/28/19 1:24 p Patient Name: CHALO AM Page [id number] at 1433 All edits/amendments must be made on the electronic document DICTATION DATE: 04/28/191432 PALEOBOTANIST: AVINASH 04/28/193 RPT#: [id number] DC DATE: STATUS: ADM IN [facility] [address] [place] [address] END OF REPORT
[2019-04-28 14:48] VITALS: BP 99/43
[2019-04-28 20:00] VITALS: BP 121/70
--- NOTE | 2019-04-28 20:27 | NUR ---
REPORT RECIEVED AND ROUNDING COMPLETE. PATIENT LAYING IN BED EYES CLOSED, BREATHING SHALLOW AND EVEN. PATIENT WEARING NASAL CANNULA WITH O2 AT 4L. PATIENT HAS DRESSING TO RIGHT AND LEFT FOREARMS DRESSINGS C/D/I. PATIENT HAS A RIGHT FOREARM PIV. PATIENT IS SHOWING NO S/SX OF DISTRESS. PATIEN IS ON A FIRST STEP OVER LAY BED. NO NEEDS AT THIS TIME. CALL LIGHT WITHN REACH AND BED IN LOWEST LOCKED POSITION.
[2019-04-29 04:00] VITALS: BP 127/44
--- NOTE | 2019-04-29 06:33 | NUR ---
PULLED PATIENT UP IN BED. REPOSITIONED FOR COMFORT.
[2019-04-29 06:49] LABS: BASOPHILS 0.1 % (0-2); EOSINOPHILS 0 % (0-7); HEMATOCRIT 30.8 % (36.0-48.0); HEMOGLOBIN 9.9 g/dL (12-16); IMMATURE GRANULOCYTES 0.8 % (0-5); LYMPHOCYTES 30.3 % (15-50); MCH 27.9 pg (26.0-34.0); MCHC 32.1 g/dL (31.0-37.0); MCV 86.8 fL (80.0-100.0); MEAN PLATELET VOLUME 10.7 fL (7.4-10.4); MONOCYTES 4.2 % (2-11); NEUTROPHILS 64.6 % (40-80); RBC 3.55 10x6/uL (4.00-5.40); RDW 17.1 % (11.5-14.5); WBC 7.9 10x3/uL (4.8-10.8)
[2019-04-29 07:03] LABS: ANION GAP 7.9 mmol/L (8-16); CALCIUM 8.9 mg/dL (8.5-10.1); CARBON DIOXIDE 32.8 mmol/L (21.0-32.0); CREATININE - SERUM 1.3 mg/dL (0.6-1.3); POTASSIUM - SERUM 5.7 mmol/L (3.5-5.1)
[2019-04-29 07:07] LABS: PLATELET COUNT 305 10x3/uL (130-400)
--- NOTE | 2019-04-29 07:24 | NUR ---
I have reviewed this patient and I concur with the Shift Assessment completed by the Licensed Practical Nurse today this shift.
--- NOTE | 2019-04-29 07:30 | NUR ---
A/A/0X4. DENIES ANY PAIN OR DISCOMFORT AT THIS TIME. IV PATENT TO LEFT EJ WITH DSG C/D/I. ASSESSMENT COMPLETED AND WILL CONTINUE POC.
[2019-04-29 08:10] VITALS: BP 126/73
--- NOTE | 2019-04-29 12:20 | NUR ---
TO DIALYSIS VIA BED.
[2019-04-29 13:50] VITALS: BP 138/92
--- NOTE | 2019-04-29 14:52 | NUR ---
I have reviewed this patient and I concur with the Shift Assessment completed by the Licensed Practical Nurse today this shift.
[2019-04-29 15:20] VITALS: BP 136/68
--- NOTE | 2019-04-29 16:10 | NUR ---
RETURNED TO ROOM VIA BED. HAD SMALL BM WHILE THERE AND PT CLEANED. NO OTHER REQUESTS. IV REMAINS PATENT ZOSYN INFUSING AT THIS TIME.
--- NOTE | 2019-04-29 20:00 | NUR ---
PT IS RESTING IN BED WITH EYES CLOSED. AWOKE EASILY TO VERBAL STIMULI. PT DENIES ANY NEEDS AT THIS TIME. O2 IS ON @ 4LPM PER NC. NO SOB NOTED. RFA SALINE LOCK NOTED. SR'S ARE UP X 3 IN BED. CALL LIGHT AND BEDSIDE TABLE ARE WITHIN EASY REACH.
[2019-04-29 20:35] VITALS: BP 102/46
--- NOTE | 2019-04-29 22:27 | NUR ---
PT IS RESTING QUIETLY IN BED WITH EYES CLOSED. RESPS ARE EVEN AND UNLABORED. NO ACUTE DISTRESS NOTED.
[2019-04-29 23:34] VITALS: BP 102/56
--- NOTE | 2019-04-30 02:49 | NUR ---
RESTING QUIETLY IN BED WITH EYES CLOSED.
[2019-04-30 03:31] VITALS: BP 110/67
--- NOTE | 2019-04-30 04:00 | NUR ---
I have reviewed this patient and I concur with the Shift Assessment completed by the Licensed Practical Nurse today this shift.
[2019-04-30 05:51] LABS: BASOPHILS 0.1 % (0-2); EOSINOPHILS 0 % (0-7); HEMATOCRIT 29.6 % (36.0-48.0); HEMOGLOBIN 9.4 g/dL (12-16); IMMATURE GRANULOCYTES 0.8 % (0-5); LYMPHOCYTES 24.8 % (15-50); MCH 27.6 pg (26.0-34.0); MCHC 31.8 g/dL (31.0-37.0); MCV 86.8 fL (80.0-100.0); MEAN PLATELET VOLUME 10.5 fL (7.4-10.4); MONOCYTES 2.8 % (2-11); NEUTROPHILS 71.5 % (40-80); PLATELET COUNT 276 10x3/uL (130-400); RBC 3.41 10x6/uL (4.00-5.40); WBC 7.1 10x3/uL (4.8-10.8)
[2019-04-30 06:00] LABS: ANION GAP 12.8 mmol/L (8-16); CALCIUM 8.9 mg/dL (8.5-10.1); CREATININE - SERUM 1.2 mg/dL (0.6-1.3); POTASSIUM - SERUM 5.8 mmol/L (3.5-5.1)
[2019-04-30 08:33] VITALS: BP 168/76
[2019-04-30 12:06] VITALS: BP 116/61
[2019-04-30 15:00] VITALS: BP 144/72
--- NOTE | 2019-04-30 18:13 | NUR ---
I have reviewed this patient and I concur with the Shift Assessment completed by the Licensed Practical Nurse today this shift.
--- NOTE | 2019-04-30 19:26 | NUR ---
PT IS RESTING IN BED WITH EYES CLOSED. AWOKE EASILY TO VERBAL STIMULI. PT IS ALERT AND ORIENTED X3. DENIES ACUTE PAIN OR DISCOMFORT. O2 IS ON @ 4LPM PER NC. NO SOB NOTED. PT RESTING ON A 1ST STEP MATTRESS. MUST BE REPOSITIONED FREQUENTLY DUE TO MATTRESS SLIDING HER TO ONE SIDE OF BED OR THE OTHER ANY TIME SHE MOVES. SR'S ARE UP X 3 IN BED. CALL LIGHT AND BEDSIDE TABLE ARE WITHIN EASY REACH.
[2019-04-30 20:00] VITALS: BP 117/75
--- NOTE | 2019-04-30 21:14 | NUR ---
PT RESTING IN BED WITH EYES OPEN. DRESSING TO RIGHT FOREARM NOTED TO HAVE A LARGE AMOUNT OF DRAINAGE COMING THROUGH IT. DRESSING REMOVED TO CHECK IF IV WAS LEAKING. IV IS PATENT. NOTED TO BE SEROUS FLUID FROM A EVULSED SKIN TEAR. SITE CLEANSED WITH WOUND BISTRO ATTENDANT, AND NEW DRESSING APPLIED. NO DRAINAGE NOTED DURING PROCEDURE.
[2019-05-01] VITALS (8 sets, daily range): BP systolic 80–125; BP diastolic 38–77
--- NOTE | 2019-05-01 00:43 | NUR ---
RESTING IN BED WITH EYES CLOSED.
--- NOTE | 2019-05-01 03:00 | NUR ---
PT RESTING IN BED WITH EYES CLOSED. NO DISTRESS NOTED.
[2019-05-01 04:29] LABS: BASOPHILS 0 % (0-2); EOSINOPHILS 0 % (0-7); HEMATOCRIT 29.7 % (36.0-48.0); HEMOGLOBIN 9.6 g/dL (12-16); IMMATURE GRANULOCYTES 0.5 % (0-5); MCH 27.9 pg (26.0-34.0); MCHC 32.3 g/dL (31.0-37.0); MCV 86.3 fL (80.0-100.0); MEAN PLATELET VOLUME 10.5 fL (7.4-10.4); MONOCYTES 9.3 % (2-11); NEUTROPHILS 62.2 % (40-80); PLATELET COUNT 320 10x3/uL (130-400); RBC 3.44 10x6/uL (4.00-5.40); RDW 16.8 % (11.5-14.5)
[2019-05-01 04:36] LABS: WBC 9.5 10x3/uL (4.8-10.8)
[2019-05-01 04:45] LABS: ANION GAP 8.6 mmol/L (8-16); CALCIUM 8.6 mg/dL (8.5-10.1); CARBON DIOXIDE 30.7 mmol/L (21.0-32.0); CREATININE - SERUM 1.1 mg/dL (0.6-1.3); POTASSIUM - SERUM 5.3 mmol/L (3.5-5.1)
--- NOTE | 2019-05-01 07:00 | NUR ---
PT RESTING IN BED, SHIFT ASSESSMENT PERFORMED. DENIES ANY NEEDS AT THIS TIME, WILL CONT TO FOLLOW POC
--- NOTE | 2019-05-01 10:08 | NUR ---
Rehab Note- Continue to follow at this time. Thank you for this referral! Liv Waters RN Clinical Liaison, [facility] Rehab
--- NOTE | 2019-05-01 19:03 | NUR ---
PT AWAKE AND ORIETNED. FAMILY AT BEDSIDE. ASSISTED WITH REARAGNING IN BED. NO COMPLAINTS/CONCERNS TO REPORT AT THISTIME. ALL QUESTIONS ANSERED. CL IN REACH, SRX2.
--- NOTE | 2019-05-01 19:53 | NUR ---
UP IN BED WITH FAMILY AT BEDSIDE, TELEVISION ON, RIGHT WRIST IS PATENT WITH SALINE LOC, ABLE TO VOICE ALL NEEDS, DENIES ANY PAIN AT THIS TIME. 02 AT 4L VIA NC. SHOWS NO S/S OF ANY ACUTE DISTRESS. WILL NOTE ANY CHANGE.
--- NOTE | 2019-05-02 02:44 | NUR ---
RESTING QUIETLY WITH EYES CLOSED AND FAMILY AT BEDSIDE. WILL NOTE ANY CHANGE.
--- NOTE | 2019-05-02 03:52 | NUR ---
I have reviewed this patient and I concur with the Shift Assessment completed by the Licensed Practical Nurse today this shift.
[2019-05-02 04:00] VITALS: BP 96/60
[2019-05-02 06:46] LABS: ANION GAP 10.4 mmol/L (8-16); CALCIUM 8.4 mg/dL (8.5-10.1); CARBON DIOXIDE 30.3 mmol/L (21.0-32.0); CREATININE - SERUM 1.6 mg/dL (0.6-1.3); POTASSIUM - SERUM 5.7 mmol/L (3.5-5.1)
[2019-05-02 06:50] LABS: BASOPHILS 0.3 % (0-2); EOSINOPHILS 2.3 % (0-7); HEMATOCRIT 31.9 % (36.0-48.0); IMMATURE GRANULOCYTES 1.1 % (0-5); LYMPHOCYTES 29.4 % (15-50); MCH 27.4 pg (26.0-34.0); MCHC 31.3 g/dL (31.0-37.0); MCV 87.4 fL (80.0-100.0); MEAN PLATELET VOLUME 10.5 fL (7.4-10.4); MONOCYTES 9.4 % (2-11); NEUTROPHILS 57.5 % (40-80); PLATELET COUNT 267 10x3/uL (130-400); RBC 3.65 10x6/uL (4.00-5.40); RDW 17.2 % (11.5-14.5); WBC 8.8 10x3/uL (4.8-10.8)
[2019-05-02 08:02] VITALS: BP 113/67
--- NOTE | 2019-05-02 08:33 | NUR ---
PT RESTING IN BED WITH EYES OPEN AT BED SIDE HELPING PT WITH ASSISTANCE EATING BREAKFAST CALL LIGHT IN REACH NO PROBLEMS WILL MONITER
[2019-05-02 11:19] VITALS: BP 116/63
[2019-05-02 14:38] VITALS: Ht 180.3 cm; Wt 118.6 kg
[2019-05-02 14:55] LABS: URIC ACID 7.3 mg/dL (2.6-7.2)
[2019-05-02 15:08] VITALS: BP 97/47
--- NOTE | 2019-05-02 18:28 | NUR ---
PT RESTING IN BED WITH EYES OPEN CALL LIGHT IN REACH NO PROBLEMS WILL MONITER
--- NOTE | 2019-05-02 18:36 | NUR ---
I have reviewed this patient and I concur with the Shift Assessment completed by the Licensed Practical Nurse today this shift.
--- NOTE | 2019-05-02 19:51 | NUR ---
REPORT RECFIEVED AND ROUNDING COMPLETE. PATIENT LAYING IN LOW FOWLERS ON A 1ST STEP OVERLAY. PATIENT'S RIGHT WRIST IS SALINE LOCKED AT THIS TIME. PATIENT HAS SOME BILATERAL SKIN TEARS ON FOREARM, PATIENT STATES ITS FROM PULLING OFF TAPE SHE BELIEVES. PATIENT IS RECIEVING O2 VIA NASAL CANNULA AT 4L. PATIENT HAS BILATERAL SWEELING TO LOWER EXTERMITIES. PATIENTS IS AT BEDSIDE. PATIENT IS SHOWING NO S/SX OF DISTRESS AT THIS TIME. CALL LIGHT WITHIN REACH AND BED IN LOWEST LOCKED POSITION. REPORTS THAT PATIENT HAS A LARGE BLISTER ON RIGHT LOWER LEG. CHECK AND SHE DOES, NO S/SX OF INFECTION ON SITE. WILL TREAT PER OCT.
[2019-05-02 20:00] VITALS: BP 115/57
--- NOTE | 2019-05-02 20:49 | NUR ---
ASSISTED PATIENT WITH GETTING OFF BSC WITH THE HELP OF GREGG GOFF, AFTER WIPING PATINET'S BUTTOCK SHE WENT COMPLETELY LIMP, ASSIST WITH SITTING ON THE BSC AGAIN. SHELL ESCOBEDO CALLED RAPID RESPONSE. MIQUEL AND MARLENE CAME INTO ROOM AND ASSITED US GETTING PATIENT BACK INTO BED. ICU NURSE CAME, FSBS 216, B/P 109/64. ICU NURSE TO CALL DR. DIAZ. PATIENT INBED AND RESTING COMFORTABLY. NO OTHER NEEDS AT THIS TIME.
[2019-05-03] VITALS: BP 125/80
[2019-05-03 04:30] VITALS: BP 127/64
[2019-05-03 05:01] LABS: ANION GAP 8.7 mmol/L (8-16); CALCIUM 8.2 mg/dL (8.5-10.1); CARBON DIOXIDE 30.8 mmol/L (21.0-32.0); CREATININE - SERUM 1.2 mg/dL (0.6-1.3); POTASSIUM - SERUM 5.5 mmol/L (3.5-5.1)
[2019-05-03 05:07] LABS: BASOPHILS 0 % (0-2); EOSINOPHILS 0 % (0-7); HEMATOCRIT 30.2 % (36.0-48.0); IMMATURE GRANULOCYTES 0.6 % (0-5); LYMPHOCYTES 19.2 % (15-50); MCH 28.2 pg (26.0-34.0); MCHC 33.1 g/dL (31.0-37.0); MCV 85.3 fL (80.0-100.0); MEAN PLATELET VOLUME 10.6 fL (7.4-10.4); MONOCYTES 2.8 % (2-11); NEUTROPHILS 77.4 % (40-80); PLATELET COUNT 326 10x3/uL (130-400); RBC 3.54 10x6/uL (4.00-5.40); RDW 16.6 % (11.5-14.5); WBC 9.6 10x3/uL (4.8-10.8)
--- NOTE | 2019-05-03 07:36 | NUR ---
PT LAYING IN BED. FAMILY AT BEDSIDE. RR EVEN AND UNLABORED. 4L NC. WILL CONTINUE TO MONITOR.
[2019-05-03 07:56] VITALS: BP 121/64
[2019-05-03 11:26] VITALS: BP 102/50
--- NOTE | 2019-05-03 13:17 | NUR ---
LARGE BM X 1. LINENS CHANGED.
[2019-05-03 13:45] VITALS: BP 113/60
--- NOTE | 2019-05-03 14:01 | NUR ---
Nutrition Follow-up: Pt sleeping; no family present. Chart reviewed. Diet: Renal ADA, Low K+, [place] Thick Liquids PO intake: 63% avg x 4 meals Wt: 278# Last BM: 05/03 Labs noted: Glu 197, K+ 5.5 Meds noted: Prednisone, Humalog, Miralax, Folate, Vitamin D Continue current diet as tolerated. [place] food preferences within diet restrictions. Encourage PO intake. RD following.
--- NOTE | 2019-05-03 16:16 | NUR ---
I have reviewed this patient and I concur with the Shift Assessment completed by the Licensed Practical Nurse today this shift.
--- NOTE | 2019-05-03 17:38 | NUR ---
IV LEAKING. D/C WITH CATHETER TIP INTACT. IV RESITED TO LEFT AC 20G X 2 ATTEMPTS. DRESSING PLACED OVER SITE, CDI. PT ASSISTED WITH FEEDING.
--- NOTE | 2019-05-03 18:39 | NUR ---
PT RESTING, ROOM DECLUTTERED. REQUESTED AND RECIEVED THICKENED JUICE. DENIES FURTHER NEEDS AT THIS TIME.
[2019-05-03 20:00] VITALS: BP 100/52
[2019-05-04] VITALS: BP 123/57
--- NOTE | 2019-05-04 01:26 | NUR ---
REC'D. AT SHIFT CHGE. IN BED SUPINE POSITION. EYES CLOSED RESP. DEEP AND EVEN.ON 1ST STEP OVER LAY MATTRESS.WILL CONTINUE TO MONITOR FOR ANY CHGES. AND FOLLOW CURRENT PLAN OF CARE
[2019-05-04 04:30] VITALS: BP 101/55
[2019-05-04 04:52] LABS: BASOPHILS 0.1 % (0-2); EOSINOPHILS 0.2 % (0-7); HEMATOCRIT 30.4 % (36.0-48.0); HEMOGLOBIN 9.7 g/dL (12-16); IMMATURE GRANULOCYTES 0.9 % (0-5); LYMPHOCYTES 34.2 % (15-50); MCH 27.5 pg (26.0-34.0); MCHC 31.9 g/dL (31.0-37.0); MCV 86.1 fL (80.0-100.0); MEAN PLATELET VOLUME 10.4 fL (7.4-10.4); MONOCYTES 13.1 % (2-11); NEUTROPHILS 51.5 % (40-80); PLATELET COUNT 311 10x3/uL (130-400); RBC 3.53 10x6/uL (4.00-5.40); RDW 16.6 % (11.5-14.5); WBC 10.8 10x3/uL (4.8-10.8)
[2019-05-04 05:07] LABS: ANION GAP 7.4 mmol/L (8-16); CARBON DIOXIDE 30.1 mmol/L (21.0-32.0); CREATININE - SERUM 1.1 mg/dL (0.6-1.3)
[2019-05-04 05:12] LABS: POTASSIUM - SERUM 4.5 mmol/L (3.5-5.1)
[2019-05-04 08:00] VITALS: BP 107/62
[2019-05-04 12:45] VITALS: BP 98/54
[2019-05-04 16:58] VITALS: BP 118/64
--- NOTE | 2019-05-04 17:21 | MORECARE ---
CASE MANAGEMENT DISCHARGE SUMMARY PATIENT: CHALO MA UNIT: [id number] ADM DATE: 04/25/19 AGE: 73 : 44 SEX: F ROOM/BED: D.2921 AUTHOR: DEBBIE VIRAMONTES PHYSICIAN: REFERRING PHYSICIAN: JED SIU MD DATE OF SERVICE: 05/04/19 Discharge Plan Patient Name: CHALO MA Facility: [facility]:[place] : 1945 Planned Disposition: Inpatient Rehab Anticipated Discharge Date: Discharge Date: Expected LOS: Initial Reviewer: [id number] Initial Review Date: 04/25/2019 Generated: 05/04/19 6:20 pm Comments DCP- Discharge Planning Updated by [id number]: Chinedu Benitez on 05/04/19 4:[address] Patient Name: CHALO MA Encounter No: [id number] : 1945 Primary Insurance: MEDICARE A & B Anticipated DC Date: Planned Disposition: Inpatient Rehab External Planned Provider: [facility] INPATIENT REHAB DCP follow-up note: CM SPOKE TO PT REGARDING REHAB PT HAS STATED TO DR. DIAZ SHE WANTS REHAB CLOSER TO HOME. PT STATES SHE AND HER HAVE TALKED AND SHE WANTS REFERRED TO INPATIENT REHAB AT [facility] IN [place], [place]. IMPORTANT MESSAGE FROM MEDICARE PROVIDED AND EXPLAINED. CM TO CALL AND SEND REFERRAL TO [facility] INPATIENT REHAB SOON POSSIBLE. Chinedu Benitez, CASE VIDHYA DCP- Discharge Planning Updated by [id number]: Chinedu Benitez on 04/28/19 1:[address] Patient Name: CHALO MA Admission Status: Urgent Accout number: [id number] Admission Date: 04-25-2019 : 1945 Admission Diagnosis:SHORTNESS OF BREATH Attending: JED SIU Current LOS: 3 Anticipated DC Date: Planned Disposition: Home with Home Health Primary Insurance: MEDICARE A & B PLANNED EXTERNAL PROVIDER: [facility] Discharge Planning Comments: CM MET WITH PT AND SPOUSE IN ROOM TO DISCUSS DISCHARGE PLANNING AND NEEDS. CHALO MA provided verbal consent to discuss current and ongoing needs with/in the presence of: SPOUSE, EJ. PT REPORTS LIVING AT HOME INDEPENDENTLY WITH HER SPOUSE. PT HAS BEDSIDE COMMODE, CANE, NEBULIZER, HOME AND PORTABLE OXYGEN WALKER AND ELECTRIC WHEELCHAIR. MEDICAL EQUIPMENT PROVIDER IS [facility] PATIENT. PT HAS HOME HEALTH WITH [facility] FOR NURSING AND PHYSICAL THERAPY. CM DISCUSSED AVAILABILITY OF HOME HEALTH, REHAB SERVICES AND MEDICAL EQUIPMENT. CM DISCUSSED INPATIENT REHAB PRESCREENING ORDER, DISCUSSED AVAILABILITY OF INPATIENT AND [facility] REHAB, PROVIDERS AND LOCATIONS. PT DENIES DISCHARGE NEEDS AND WANTS TO RETURN HOME WITH HOME HEALTH. PT'S SPOUSE IN AGREEMENT WITH PLAN. PT'S SPOUSE WILL PICK PT UP FOR DISCHARGE HOME. IMPORTANT MESSAGE FROM MEDICARE PROVIDED AND EXPLAINED. CHOICE FOR HOME HEALTH SIGNED. CM DISCUSSED THERAPY PROGRESS AND ASKED PT'S SPOUSE IF HE HAS BEEN HERE FOR THERAPY AND CAN HE ASSIST PT IN HER CURRENT CONDITION SAFELY. PT'S SPOUSE REPORTS HE HAS SEEN THERAPY WORKING WITH PT AND HE CAN PROVIDE THE CARE PT NEEDS AT HOME. PT'S SPOUSE REPORTS PT IS NOT GOING TO REHAB AND WILL BE GOING HOME WITH HOME HEALTH RESUMPTION. CM PROVIDED CM CONTACT INFORMATION AND ASKED THAT PT OR SPOUSE NOTIFY CM IF THEY CHANGE THEIR MIND AND WANT REHAB PLACEMENT PRIOR TO GOING HOME. CM CALLED [facility], , DISCUSSED WITH [facility] WHO CONFIRMED PT IS ACTIVE AND THEY WILL RESUME SERVICES AT DISCHARGE. [facility] AGREES THAT PT WOULD BENEFIT FROM REHAB PRIOR TO RETURN HOME. PT PLANS TO DISCHARGE HOME WITH SPOUSE AND HOME HEALTH RESUMPTION. FOR DISCHARGE HOME WITH HOME HEALTH RESUMPTION, NOTIFY [facility] AT [phone]. FAX DISCHARGE INFORMATION TO [facility] AT [phone]. CM TO CONTINUE TO FOLLOW AND ASSIST NEEDED. Diagnostic Sales Specialist: Chinedu Benitez DCA - Discharge Planning Initial Assessment Updated by [email or web address]: Chinedu Benitez on 04/28/19 2:25 pm * Is the patient Alert and Oriented? Yes * How many steps to enter\exit or inside your home? NONE * PCP DR. BURTON * Pharmacy [facility] IN [place] * Preadmission Environment Home with Family * ADLs Independent * Equipment Bedside Commode Cane Nebulizer Oxygen Power Chair or Electric Scooter * Other Equipment HOME AND PORTABLE OXYGEN [employer] PATIENT - [place] * List name and contact numbers for known caregivers / representatives who currently or will assist patient after discharge: TITA MA, SPOUSE, * Verbal permission to speak to the caregivers and representatives has been obtained from the patient. Yes * Community resources currently utilized Home Health * Please name any agencies selected above. [facility], [place], THERAPY SERVICES T- [phone], F [phone] * Additional services required to return to the preadmission environment? Yes * Can the patient safely return to the preadmission environment? Yes * Has this patient been hospitalized within the prior 30 days at any hospital? No Coverage Notice Reviewer: JAYCE Benitez Notice Issued Date-Time: 04/28/2019 13:45 Notice Type: Patient Choice Letter Notice Delivered To: Family Member Relationship to Patient: Spouse Copy Lathe Tender Name: TITA MA Delivery Method: HAND - Hand Delivered Chary Days: Prior Verbal Notification: Recipient Understood Notice: Yes Recipient Signature: Yes Med Rec Note Co-signed by Attending: Coverage Notice Comment: [facility] ([place] - [facility] Reviewer: [id number] Benitez Notice Issued Date-Time: 04/28/2019 13:45 Notice Type: IM Discharge Notice Notice Delivered To: Family Member Relationship to Patient: Spouse Copy Lathe Tender Name: TITA MA Delivery Method: HAND - Hand Delivered Chary Days: Prior Verbal Notification: Recipient Understood Notice: Yes Recipient Signature: Yes Med Rec Note Co-signed by Attending: Coverage Notice Comment: Last DP export: 04/28/19 1:33 p Patient Name: CHALO MA Page 78821 at 1721 All edits/amendments must be made on the electronic document DICTATION DATE: 05/04/191719 CRIMINAL RESEARCH SPECIALIST: AVINASH 05/04/191719 RPT#: [id number] DC DATE: STATUS: ADM IN [facility] [address] [place] [address] END OF REPORT
[2019-05-04 20:00] VITALS: BP 119/65
[2019-05-05] VITALS (7 sets, daily range): BP systolic 105–159; BP diastolic 58–86
[2019-05-05 06:27] LABS: BASOPHILS 0.1 % (0-2); EOSINOPHILS 0 % (0-7); HEMATOCRIT 30.6 % (36.0-48.0); HEMOGLOBIN 9.8 g/dL (12-16); IMMATURE GRANULOCYTES 1.1 % (0-5); LYMPHOCYTES 27.1 % (15-50); MCH 27.5 pg (26.0-34.0); MCV 85.7 fL (80.0-100.0); MEAN PLATELET VOLUME 10.2 fL (7.4-10.4); NEUTROPHILS 63.7 % (40-80); PLATELET COUNT 267 10x3/uL (130-400); RBC 3.57 10x6/uL (4.00-5.40); RDW 16.4 % (11.5-14.5); WBC 8.2 10x3/uL (4.8-10.8)
[2019-05-05 06:50] LABS: ANION GAP 8.5 mmol/L (8-16); CALCIUM 8.2 mg/dL (8.5-10.1); CARBON DIOXIDE 29.7 mmol/L (21.0-32.0); CREATININE - SERUM 1.2 mg/dL (0.6-1.3); POTASSIUM - SERUM 5.2 mmol/L (3.5-5.1)
--- NOTE | 2019-05-05 10:04 | MORECARE ---
CASE MANAGEMENT DISCHARGE SUMMARY PATIENT: CHALO MA UNIT: [id number] ADM DATE: 04/25/19 AGE: 73 : 44 SEX: F ROOM/BED: D.0686 AUTHOR: DEBBIE VIRAMONTES PHYSICIAN: REFERRING PHYSICIAN: JED SIU MD DATE OF SERVICE: 05/05/19 Discharge Plan Patient Name: CHALO MA Facility: [facility]:[place] : 1945 Planned Disposition: [facility] Facility Anticipated Discharge Date: Discharge Date: Expected LOS: Initial Reviewer: [id number] Initial Review Date: 04/25/2019 Generated: 05/05/19 11:04 am Comments DCP- Discharge Planning Updated by [email or web address]: Chinedu Benitez on 05/04/19 4:[address] Patient Name: CHALO MA Encounter No: [id number] : 1945 Primary Insurance: MEDICARE A & B Anticipated DC Date: Planned Disposition: Inpatient Rehab External Planned Provider: [facility] INPATIENT REHAB DCP follow-up note: CM SPOKE TO PT REGARDING REHAB PT HAS STATED TO DR. DIAZ SHE WANTS REHAB CLOSER TO HOME. PT STATES SHE AND HER HAVE TALKED AND SHE WANTS REFERRED TO INPATIENT REHAB AT [facility] IN [place], [place]. IMPORTANT MESSAGE FROM MEDICARE PROVIDED AND EXPLAINED. CM TO CALL AND SEND REFERRAL TO [facility] INPATIENT REHAB SOON POSSIBLE. Chinedu Benitez, CASE VIDHYA DCP- Discharge Planning Updated by [id number]: Chinedu Benitez on 04/28/19 1:[address] Patient Name: CHALO MA Admission Status: Urgent Accout number: [id number] Admission Date: 04-25-2019 : 1945 Admission Diagnosis:SHORTNESS OF BREATH Attending: JED SIU Current LOS: 3 Anticipated DC Date: Planned Disposition: Home with Home Health Primary Insurance: MEDICARE A & B PLANNED EXTERNAL PROVIDER: [facility] Discharge Planning Comments: CM MET WITH PT AND SPOUSE IN ROOM TO DISCUSS DISCHARGE PLANNING AND NEEDS. CHALO MA provided verbal consent to discuss current and ongoing needs with/in the presence of: SPOUSE, EJ. PT REPORTS LIVING AT HOME INDEPENDENTLY WITH HER SPOUSE. PT HAS BEDSIDE COMMODE, CANE, NEBULIZER, HOME AND PORTABLE OXYGEN WALKER AND ELECTRIC WHEELCHAIR. MEDICAL EQUIPMENT PROVIDER IS [facility] PAT[facility]. PT HAS HOME HEALTH WITH [facility] FOR NURSING AND PHYSICAL THERAPY. CM DISCUSSED AVAILABILITY OF HOME HEALTH, REHAB SERVICES AND MEDICAL EQUIPMENT. CM DISCUSSED INPATIENT REHAB PRESCREENING ORDER, DISCUSSED AVAILABILITY OF INPATIENT AND NURSING HOME REHAB, PROVIDERS AND LOCATIONS. PT DENIES DISCHARGE NEEDS AND WANTS TO RETURN HOME WITH HOME HEALTH. PT'S SPOUSE IN AGREEMENT WITH PLAN. PT'S SPOUSE WILL PICK PT UP FOR DISCHARGE HOME. IMPORTANT MESSAGE FROM MEDICARE PROVIDED AND EXPLAINED. CHOICE FOR HOME HEALTH SIGNED. CM DISCUSSED THERAPY PROGRESS AND ASKED PT'S SPOUSE IF HE HAS BEEN HERE FOR THERAPY AND CAN HE ASSIST PT IN HER CURRENT CONDITION SAFELY. PT'S SPOUSE REPORTS HE HAS SEEN THERAPY WORKING WITH PT AND HE CAN PROVIDE THE CARE PT NEEDS AT HOME. PT'S SPOUSE REPORTS PT IS NOT GOING TO REHAB AND WILL BE GOING HOME WITH HOME HEALTH RESUMPTION. CM PROVIDED CM CONTACT INFORMATION AND ASKED THAT PT OR SPOUSE NOTIFY CM IF THEY CHANGE THEIR MIND AND WANT REHAB PLACEMENT PRIOR TO GOING HOME. CM CALLED [facility], , DISCUSSED WITH [facility] WHO CONFIRMED PT IS ACTIVE AND THEY WILL RESUME SERVICES AT DISCHARGE. [facility] AGREES THAT PT WOULD BENEFIT FROM REHAB PRIOR TO RETURN HOME. PT PLANS TO DISCHARGE HOME WITH SPOUSE AND HOME HEALTH RESUMPTION. FOR DISCHARGE HOME WITH HOME HEALTH RESUMPTION, NOTIFY [facility] AT [phone]. FAX DISCHARGE INFORMATION TO [facility] AT [phone]. CM TO CONTINUE TO FOLLOW AND ASSIST NEEDED. Programmer Or Analyst: Chinedu Benitez DCA - Discharge Planning Initial Assessment Updated by [email or web address]: Chinedu Benitez on 04/28/19 2:25 pm * Is the patient Alert and Oriented? Yes * How many steps to enter\exit or inside your home? NONE * PCP DR. BURTON * Pharmacy [facility] IN [place] * Preadmission Environment Home with Family * ADLs Independent * Equipment Bedside Commode Cane Nebulizer Oxygen Power Chair or Electric Scooter * Other Equipment HOME AND PORTABLE OXYGEN [facility] PATIENT - [place] * List name and contact numbers for known caregivers / representatives who currently or will assist patient after discharge: TITA MA, SPOUSE, * Verbal permission to speak to the caregivers and representatives has been obtained from the patient. Yes * Community resources currently utilized Home Health * Please name any agencies selected above. [facility], [facility], [facility] T- [phone], F [phone] * Additional services required to return to the preadmission environment? Yes * Can the patient safely return to the preadmission environment? Yes * Has this patient been hospitalized within the prior 30 days at any hospital? No Coverage Notice Reviewer: JAYCE Benitez Notice Issued Date-Time: 04/28/2019 13:45 Notice Type: Patient Choice Letter Notice Delivered To: Family Member Relationship to Patient: Spouse Corrections Nurse Name: TITA MA Delivery Method: HAND - Hand Delivered Chary Days: Prior Verbal Notification: Recipient Understood Notice: Yes Recipient Signature: Yes Med Rec Note Co-signed by Attending: Coverage Notice Comment: [facility] Reviewer: JAYCE Benitez Notice Issued Date-Time: 04/28/2019 13:45 Notice Type: IM Discharge Notice Notice Delivered To: Family Member Relationship to Patient: Spouse Corrections Nurse Name: TITA MA Delivery Method: HAND - Hand Delivered Chary Days: Prior Verbal Notification: Recipient Understood Notice: Yes Recipient Signature: Yes Med Rec Note Co-signed by Attending: Coverage Notice Comment: Reviewer: JAYCE Benitez Notice Issued Date-Time: 05/04/2019 9:55 Notice Type: IM Discharge Notice Notice Delivered To: Patient Relationship to Patient: Corrections Nurse Name: Delivery Method: HAND - Hand Delivered Chary Days: Prior Verbal Notification: Recipient Understood Notice: Yes Recipient Signature: Yes Med Rec Note Co-signed by Attending: Coverage Notice Comment: Last DP export: 05/04/19 4:21 pm Patient Name: CHALO MA Page 33444 at 1004 All edits/amendments must be made on the electronic document DICTATION DATE: 05/05/19 1004 ACCOUNT EXECUTIVE TRAINEE: AVINASH 05/05/19 1004 RPT#: [id number] DC DATE: STATUS: ADM IN [facility] [address] [place] [address] END OF REPORT
--- NOTE | 2019-05-05 12:40 | MORECARE ---
CASE MANAGEMENT DISCHARGE SUMMARY PATIENT: CHALO MA UNIT: [id number] ADM DATE: 04/25/19 AGE: 73 : 44 SEX: F ROOM/BED: D.3896 AUTHOR: DEBBIE VIRAMONTES PHYSICIAN: REFERRING PHYSICIAN: JED SIU MD DATE OF SERVICE: 05/05/19 Discharge Plan Patient Name: CHALO MA Facility: [facility]:[place] : 1945 Planned Disposition: Fdc Facility Anticipated Discharge Date: Discharge Date: Expected LOS: Initial Reviewer: [email or web address] Initial Review Date: 04/25/2019 Generated: 05/05/19 1:40 pm Comments DCP- Discharge Planning Updated by [email or web address]: Chinedu Benitez on 05/04/19 4:[address] Patient Name: CHALO MA Encounter No: [id number] : 1945 Primary Insurance: MEDICARE A & B Anticipated DC Date: Planned Disposition: Inpatient Rehab External Planned Provider: [facility] INPATIENT REHAB DCP follow-up note: CM SPOKE TO PT REGARDING REHAB PT HAS STATED TO DR. DIAZ SHE WANTS REHAB CLOSER TO HOME. PT STATES SHE AND HER HAVE TALKED AND SHE WANTS REFERRED TO INPATIENT REHAB AT [facility] IN [place], [place]. IMPORTANT MESSAGE FROM MEDICARE PROVIDED AND EXPLAINED. CM TO CALL AND SEND REFERRAL TO [facility] INPATIENT REHAB SOON POSSIBLE. Chinedu Benitez, CASE VIDHYA DCP- Discharge Planning Updated by [email or web address]: Chinedu Benitez on 04/28/19 1:[address] Patient Name: CHALO MA Admission Status: Urgent Accout number: [id number] Admission Date: 04-25-2019 : 1945 Admission Diagnosis:SHORTNESS OF BREATH Attending: JED SIU Current LOS: 3 Anticipated DC Date: Planned Disposition: Home with Home Health Primary Insurance: MEDICARE A & B PLANNED EXTERNAL PROVIDER: [facility] Discharge Planning Comments: CM MET WITH PT AND SPOUSE IN ROOM TO DISCUSS DISCHARGE PLANNING AND NEEDS. CHALO MA provided verbal consent to discuss current and ongoing needs with/in the presence of: SPOUSE, EJ. PT REPORTS LIVING AT HOME INDEPENDENTLY WITH HER SPOUSE. PT HAS BEDSIDE COMMODE, CANE, NEBULIZER, HOME AND PORTABLE OXYGEN WALKER AND ELECTRIC WHEELCHAIR. MEDICAL EQUIPMENT PROVIDER IS [employer] PATIENT. PT HAS HOME HEALTH WITH [facility] FOR NURSING AND PHYSICAL THERAPY. CM DISCUSSED AVAILABILITY OF HOME HEALTH, REHAB SERVICES AND MEDICAL EQUIPMENT. CM DISCUSSED INPATIENT REHAB PRESCREENING ORDER, DISCUSSED AVAILABILITY OF INPATIENT AND [facility] REHAB, PROVIDERS AND LOCATIONS. PT DENIES DISCHARGE NEEDS AND WANTS TO RETURN HOME WITH HOME HEALTH. PT'S SPOUSE IN AGREEMENT WITH PLAN. PT'S SPOUSE WILL PICK PT UP FOR DISCHARGE HOME. IMPORTANT MESSAGE FROM MEDICARE PROVIDED AND EXPLAINED. CHOICE FOR HOME HEALTH SIGNED. CM DISCUSSED THERAPY PROGRESS AND ASKED PT'S SPOUSE IF HE HAS BEEN HERE FOR THERAPY AND CAN HE ASSIST PT IN HER CURRENT CONDITION SAFELY. PT'S SPOUSE REPORTS HE HAS SEEN THERAPY WORKING WITH PT AND HE CAN PROVIDE THE CARE PT NEEDS AT HOME. PT'S SPOUSE REPORTS PT IS NOT GOING TO REHAB AND WILL BE GOING HOME WITH HOME HEALTH RESUMPTION. CM PROVIDED CM CONTACT INFORMATION AND ASKED THAT PT OR SPOUSE NOTIFY CM IF THEY CHANGE THEIR MIND AND WANT REHAB PLACEMENT PRIOR TO GOING HOME. CM CALLED [facility], , DISCUSSED WITH [facility] WHO CONFIRMED PT IS ACTIVE AND THEY WILL RESUME SERVICES AT DISCHARGE. [facility] AGREES THAT PT WOULD BENEFIT FROM REHAB PRIOR TO RETURN HOME. PT PLANS TO DISCHARGE HOME WITH SPOUSE AND HOME HEALTH RESUMPTION. FOR DISCHARGE HOME WITH HOME HEALTH RESUMPTION, NOTIFY [facility] AT [phone]. FAX DISCHARGE INFORMATION TO [facility] AT [phone]. CM TO CONTINUE TO FOLLOW AND ASSIST NEEDED. Chief Writer: Chinedu Benitez DCA - Discharge Planning Initial Assessment Updated by [email or web address]: Chinedu Benitez on 04/28/19 2:25 pm * Is the patient Alert and Oriented? Yes * How many steps to enter\exit or inside your home? NONE * PCP DR. BURTON * Pharmacy [facility] IN [place] * Preadmission Environment Home with Family * ADLs Independent * Equipment Bedside Commode Cane Nebulizer Oxygen Power Chair or Electric Scooter * Other Equipment HOME AND PORTABLE OXYGEN [employer] [facility] PATIENT - [place] * List name and contact numbers for known caregivers / representatives who currently or will assist patient after discharge: TITA MA, SPOUSE, * Verbal permission to speak to the caregivers and representatives has been obtained from the patient. Yes * Community resources currently utilized Home Health * Please name any agencies selected above. [facility], [facility] T- [phone], F [phone] * Additional services required to return to the preadmission environment? Yes * Can the patient safely return to the preadmission environment? Yes * Has this patient been hospitalized within the prior 30 days at any hospital? No External Providers External Provider: OTHER-OTHER Next Contact Date: 05/05/2019 Service Request Date: Service Type: Resolution: Reviewer: Comments: Coverage Notice Reviewer: [id number] Benitez Notice Issued Date-Time: 04/28/2019 13:45 Notice Type: Patient Choice Letter Notice Delivered To: Family Member Relationship to Patient: Spouse Clinical Medical Transcriptionist Name: TITA MA Delivery Method: HAND - Hand Delivered Chary Days: Prior Verbal Notification: Recipient Understood Notice: Yes Recipient Signature: Yes Med Rec Note Co-signed by Attending: Coverage Notice Comment: [facility] Reviewer: [id number] Benitez Notice Issued Date-Time: 04/28/2019 13:45 Notice Type: IM Discharge Notice Notice Delivered To: Family Member Relationship to Patient: Spouse Clinical Medical Transcriptionist Name: TITA MA Delivery Method: HAND - Hand Delivered Chary Days: Prior Verbal Notification: Recipient Understood Notice: Yes Recipient Signature: Yes Med Rec Note Co-signed by Attending: Coverage Notice Comment: Reviewer: JAYCE Benitez Notice Issued Date-Time: 05/04/2019 9:55 Notice Type: IM Discharge Notice Notice Delivered To: Patient Relationship to Patient: Clinical Medical Transcriptionist Name: Delivery Method: HAND - Hand Delivered Chary Days: Prior Verbal Notification: Recipient Understood Notice: Yes Recipient Signature: Yes Med Rec Note Co-signed by Attending: Coverage Notice Comment: Last DP export: 05/05/19 9:04 am Patient Name: CHALO MA Page [id number] at 1240 All edits/amendments must be made on the electronic document DICTATION DATE: 05/05/19 1240 PRACTICAL NURSE: AVINASH 05/05/19 1240 RPT#: [id number] DC DATE: STATUS: ADM IN [facility] [address] [place] [address] END OF REPORT
--- NOTE | 2019-05-05 12:49 | MORECARE ---
CASE MANAGEMENT DISCHARGE SUMMARY PATIENT: CHALO MA UNIT: [id number] ADM DATE: 04/25/19 AGE: 73 : 43 SEX: F ROOM/BED: D.5472 AUTHOR: DEBBIE VIRAMONTES PHYSICIAN: REFERRING PHYSICIAN: JED SIU MD DATE OF SERVICE: 05/05/19 Discharge Plan Patient Name: CHALO MA Facility: [facility]:[place] : 1945 Planned Disposition: Fdc Facility Anticipated Discharge Date: Discharge Date: Expected LOS: Initial Reviewer: [id number] Initial Review Date: 04/25/2019 Generated: 05/05/19 1:49 pm Comments DCP- Discharge Planning Updated by [email or web address]: Chinedu Benitez on 05/04/19 4:[address] Patient Name: CHALO MA Encounter No: [id number] : 1945 Primary Insurance: MEDICARE A & B Anticipated DC Date: Planned Disposition: Inpatient Rehab External Planned Provider: [facility] INPATIENT REHAB DCP follow-up note: CM SPOKE TO PT REGARDING REHAB PT HAS STATED TO DR. DIAZ SHE WANTS REHAB CLOSER TO HOME. PT STATES SHE AND HER HAVE TALKED AND SHE WANTS REFERRED TO INPATIENT REHAB AT [facility] IN [place], [place]. IMPORTANT MESSAGE FROM MEDICARE PROVIDED AND EXPLAINED. CM TO CALL AND SEND REFERRAL TO [facility] INPATIENT REHAB SOON POSSIBLE. Chinedu Benitez, CASE VIDHYA DCP- Discharge Planning Updated by [id number]: Chinedu Benitez on 04/28/19 1:[address] Patient Name: CHALO MA Admission Status: Urgent Accout number: [id number] Admission Date: 04-25-2019 : 1945 Admission Diagnosis:SHORTNESS OF BREATH Attending: JED SIU Current LOS: 3 Anticipated DC Date: Planned Disposition: Home with Home Health Primary Insurance: MEDICARE A & B PLANNED EXTERNAL PROVIDER: [facility] Discharge Planning Comments: CM MET WITH PT AND SPOUSE IN ROOM TO DISCUSS DISCHARGE PLANNING AND NEEDS. CHALO MA provided verbal consent to discuss current and ongoing needs with/in the presence of: SPOUSE, EJ. PT REPORTS LIVING AT HOME INDEPENDENTLY WITH HER SPOUSE. PT HAS BEDSIDE COMMODE, CANE, NEBULIZER, HOME AND PORTABLE OXYGEN WALKER AND ELECTRIC WHEELCHAIR. MEDICAL EQUIPMENT PROVIDER IS [facility]. PT HAS HOME HEALTH WITH [facility] FOR NURSING AND PHYSICAL THERAPY. CM DISCUSSED AVAILABILITY OF HOME HEALTH, REHAB SERVICES AND MEDICAL EQUIPMENT. CM DISCUSSED INPATIENT REHAB PRESCREENING ORDER, DISCUSSED AVAILABILITY OF INPATIENT AND LONGTERM REHAB, PROVIDERS AND LOCATIONS. PT DENIES DISCHARGE NEEDS AND WANTS TO RETURN HOME WITH HOME HEALTH. PT'S SPOUSE IN AGREEMENT WITH PLAN. PT'S SPOUSE WILL PICK PT UP FOR DISCHARGE HOME. IMPORTANT MESSAGE FROM MEDICARE PROVIDED AND EXPLAINED. CHOICE FOR HOME HEALTH SIGNED. CM DISCUSSED THERAPY PROGRESS AND ASKED PT'S SPOUSE IF HE HAS BEEN HERE FOR THERAPY AND CAN HE ASSIST PT IN HER CURRENT CONDITION SAFELY. PT'S SPOUSE REPORTS HE HAS SEEN THERAPY WORKING WITH PT AND HE CAN PROVIDE THE CARE PT NEEDS AT HOME. PT'S SPOUSE REPORTS PT IS NOT GOING TO REHAB AND WILL BE GOING HOME WITH HOME HEALTH RESUMPTION. CM PROVIDED CM CONTACT INFORMATION AND ASKED THAT PT OR SPOUSE NOTIFY CM IF THEY CHANGE THEIR MIND AND WANT REHAB PLACEMENT PRIOR TO GOING HOME. CM CALLED [facility], , DISCUSSED WITH [facility] WHO CONFIRMED PT IS ACTIVE AND THEY WILL RESUME SERVICES AT DISCHARGE. [facility] AGREES THAT PT WOULD BENEFIT FROM REHAB PRIOR TO RETURN HOME. PT PLANS TO DISCHARGE HOME WITH SPOUSE AND HOME HEALTH RESUMPTION. FOR DISCHARGE HOME WITH HOME HEALTH RESUMPTION, NOTIFY [facility] AT [phone]. FAX DISCHARGE INFORMATION TO [facility] AT [phone]. CM TO CONTINUE TO FOLLOW AND ASSIST NEEDED. Artist Agent: Chinedu Benitez DCA - Discharge Planning Initial Assessment Updated by [id number]: Chinedu Benitez on 04/28/19 2:25 pm * Is the patient Alert and Oriented? Yes * How many steps to enter\exit or inside your home? NONE * PCP DR. BURTON * Pharmacy [facility] IN [place] * Preadmission Environment Home with Family * ADLs Independent * Equipment Bedside Commode Cane Nebulizer Oxygen Power Chair or Electric Scooter * Other Equipment HOME AND PORTABLE OXYGEN [facility] - [place] [facility] * List name and contact numbers for known caregivers / representatives who currently or will assist patient after discharge: TITA MA, SPOUSE, * Verbal permission to speak to the caregivers and representatives has been obtained from the patient. Yes * Community resources currently utilized Home Health * Please name any agencies selected above. [facility], [facility], [facility] T- [phone], F [phone] * Additional services required to return to the preadmission environment? Yes * Can the patient safely return to the preadmission environment? Yes * Has this patient been hospitalized within the prior 30 days at any hospital? No External Providers External Provider: OTHER-OTHER Next Contact Date: 05/05/2019 Service Request Date: Service Type: Resolution: Reviewer: Comments: Coverage Notice Reviewer: [id number] Benitez Notice Issued Date-Time: 04/28/2019 13:45 Notice Type: IM Discharge Notice Notice Delivered To: Family Member Relationship to Patient: Spouse Peach Grower Name: TITA MA Delivery Method: HAND - Hand Delivered Chary Days: Prior Verbal Notification: Recipient Understood Notice: Yes Recipient Signature: Yes Med Rec Note Co-signed by Attending: Coverage Notice Comment: Reviewer: JAYCE Benitez Notice Issued Date-Time: 04/28/2019 13:45 Notice Type: Patient Choice Letter Notice Delivered To: Family Member Relationship to Patient: Spouse Peach Grower Name: TITA MA Delivery Method: HAND - Hand Delivered Chary Days: Prior Verbal Notification: Recipient Understood Notice: Yes Recipient Signature: Yes Med Rec Note Co-signed by Attending: Coverage Notice Comment: [facility] ([place] - [facility] Reviewer: [id number] Benitez Notice Issued Date-Time: 05/04/2019 9:55 Notice Type: IM Discharge Notice Notice Delivered To: Patient Relationship to Patient: Peach Grower Name: Delivery Method: HAND - Hand Delivered Chary Days: Prior Verbal Notification: Recipient Understood Notice: Yes Recipient Signature: Yes Med Rec Note Co-signed by Attending: Coverage Notice Comment: Last DP export: 05/05/19 11:40 am Patient Name: CHALO MA Page [id number] at 1249 All edits/amendments must be made on the electronic document DICTATION DATE: 05/05/19 1249 RENTAL MANAGER: AVINASH 05/05/19 1249 RPT#: [id number] DC DATE: STATUS: ADM IN [facility] [address] [place] [address] END OF REPORT
--- NOTE | 2019-05-05 14:13 | MORECARE ---
CASE MANAGEMENT DISCHARGE SUMMARY PATIENT: CHALO MA UNIT: [id number] ADM DATE: 04/25/19 AGE: 73 : 44 SEX: F ROOM/BED: D.1251 AUTHOR: DEBBIE VIRAMONTES PHYSICIAN: REFERRING PHYSICIAN: JED SIU MD DATE OF SERVICE: 05/05/19 Discharge Plan Patient Name: CHALO MA Facility: [facility]:[place] : 1945 Planned Disposition: Mcfp Facility Anticipated Discharge Date: Discharge Date: Expected LOS: Initial Reviewer: [id number] Initial Review Date: 04/25/2019 Generated: 05/05/19 3:13 pm Comments DCP- Discharge Planning Updated by [id number]: Chinedu Benitez on 05/04/19 4:[address] Patient Name: CHALO MA Encounter No: [id number] : 1945 Primary Insurance: MEDICARE A & B Anticipated DC Date: Planned Disposition: Inpatient Rehab External Planned Provider: [facility] INPATIENT REHAB DCP follow-up note: CM SPOKE TO PT REGARDING REHAB PT HAS STATED TO DR. DIAZ SHE WANTS REHAB CLOSER TO HOME. PT STATES SHE AND HER HAVE TALKED AND SHE WANTS REFERRED TO INPATIENT REHAB AT [facility] IN [place], [place]. IMPORTANT MESSAGE FROM MEDICARE PROVIDED AND EXPLAINED. CM TO CALL AND SEND REFERRAL TO [facility] INPATIENT REHAB SOON POSSIBLE. Chinedu Benitez, CASE VIDHYA DCP- Discharge Planning Updated by [id number]: Chinedu Benitez on 04/28/19 1:[address] Patient Name: CHALO MA Admission Status: Urgent Accout number: [id number] Admission Date: 04-25-2019 : 1945 Admission Diagnosis:SHORTNESS OF BREATH Attending: JED SIU Current LOS: 3 Anticipated DC Date: Planned Disposition: Home with Home Health Primary Insurance: MEDICARE A & B PLANNED EXTERNAL PROVIDER: [facility] Discharge Planning Comments: CM MET WITH PT AND SPOUSE IN ROOM TO DISCUSS DISCHARGE PLANNING AND NEEDS. CHALO MA provided verbal consent to discuss current and ongoing needs with/in the presence of: SPOUSE, EJ. PT REPORTS LIVING AT HOME INDEPENDENTLY WITH HER SPOUSE. PT HAS BEDSIDE COMMODE, CANE, NEBULIZER, HOME AND PORTABLE OXYGEN WALKER AND ELECTRIC WHEELCHAIR. MEDICAL EQUIPMENT PROVIDER IS [employer]. PT HAS HOME HEALTH WITH [facility] FOR NURSING AND PHYSICAL THERAPY. CM DISCUSSED AVAILABILITY OF HOME HEALTH, REHAB SERVICES AND MEDICAL EQUIPMENT. CM DISCUSSED INPATIENT REHAB PRESCREENING ORDER, DISCUSSED AVAILABILITY OF INPATIENT AND RETIREMENT REHAB, PROVIDERS AND LOCATIONS. PT DENIES DISCHARGE NEEDS AND WANTS TO RETURN HOME WITH HOME HEALTH. PT'S SPOUSE IN AGREEMENT WITH PLAN. PT'S SPOUSE WILL PICK PT UP FOR DISCHARGE HOME. IMPORTANT MESSAGE FROM MEDICARE PROVIDED AND EXPLAINED. CHOICE FOR HOME HEALTH SIGNED. CM DISCUSSED THERAPY PROGRESS AND ASKED PT'S SPOUSE IF HE HAS BEEN HERE FOR THERAPY AND CAN HE ASSIST PT IN HER CURRENT CONDITION SAFELY. PT'S SPOUSE REPORTS HE HAS SEEN THERAPY WORKING WITH PT AND HE CAN PROVIDE THE CARE PT NEEDS AT HOME. PT'S SPOUSE REPORTS PT IS NOT GOING TO REHAB AND WILL BE GOING HOME WITH HOME HEALTH RESUMPTION. CM PROVIDED CM CONTACT INFORMATION AND ASKED THAT PT OR SPOUSE NOTIFY CM IF THEY CHANGE THEIR MIND AND WANT REHAB PLACEMENT PRIOR TO GOING HOME. CM CALLED [facility], , DISCUSSED WITH [facility] WHO CONFIRMED PT IS ACTIVE AND THEY WILL RESUME SERVICES AT DISCHARGE. [facility] AGREES THAT PT WOULD BENEFIT FROM REHAB PRIOR TO RETURN HOME. PT PLANS TO DISCHARGE HOME WITH SPOUSE AND HOME HEALTH RESUMPTION. FOR DISCHARGE HOME WITH HOME HEALTH RESUMPTION, NOTIFY [facility] AT [phone]. FAX DISCHARGE INFORMATION TO [facility] AT [phone]. CM TO CONTINUE TO FOLLOW AND ASSIST NEEDED. Carton Making Machinist: Chinedu Benitez DCA - Discharge Planning Initial Assessment Updated by [id number]: Chinedu Benitez on 04/28/19 2:25 pm * Is the patient Alert and Oriented? Yes * How many steps to enter\exit or inside your home? NONE * PCP DR. BURTON * Pharmacy [facility] IN [place] * Preadmission Environment Home with Family * ADLs Independent * Equipment Bedside Commode Cane Nebulizer Oxygen Power Chair or Electric Scooter * Other Equipment HOME AND PORTABLE OXYGEN [facility] - [place]ARN[place] * List name and contact numbers for known caregivers / representatives who currently or will assist patient after discharge: TITA MA, SPOUSE, * Verbal permission to speak to the caregivers and representatives has been obtained from the patient. Yes * Community resources currently utilized Home Health * Please name any agencies selected above. [facility], [facility], [facility] SERVICES T- [phone], F [phone] * Additional services required to return to the preadmission environment? Yes * Can the patient safely return to the preadmission environment? Yes * Has this patient been hospitalized within the prior 30 days at any hospital? No Coverage Notice Reviewer: JAYCE Benitez Notice Issued Date-Time: 04/28/2019 13:45 Notice Type: Patient Choice Letter Notice Delivered To: Family Member Relationship to Patient: Spouse Children'S Attendant Name: TITA MA Delivery Method: HAND - Hand Delivered Chary Days: Prior Verbal Notification: Recipient Understood Notice: Yes Recipient Signature: Yes Med Rec Note Co-signed by Attending: Coverage Notice Comment: [facility] - [facility] Reviewer: JAYCE Benitez Notice Issued Date-Time: 04/28/2019 13:45 Notice Type: IM Discharge Notice Notice Delivered To: Family Member Relationship to Patient: Spouse Children'S Attendant Name: TITA MA Delivery Method: HAND - Hand Delivered Chary Days: Prior Verbal Notification: Recipient Understood Notice: Yes Recipient Signature: Yes Med Rec Note Co-signed by Attending: Coverage Notice Comment: Reviewer: JAYCE Benitez Notice Issued Date-Time: 05/04/2019 9:55 Notice Type: IM Discharge Notice Notice Delivered To: Patient Relationship to Patient: Children'S Attendant Name: Delivery Method: HAND - Hand Delivered Chary Days: Prior Verbal Notification: Recipient Understood Notice: Yes Recipient Signature: Yes Med Rec Note Co-signed by Attending: Coverage Notice Comment: Last DP export: 05/05/19 11:49 am Patient Name: CHALO MA Page [id number] at 1413 All edits/amendments must be made on the electronic document DICTATION DATE: 05/05/19 141 AIRCRAFT RESTORER: AVINASH 05/05/19 1413 RPT#: [id number] DC DATE: STATUS: ADM IN [facility] [address] [place] [address] END OF REPORT
--- NOTE | 2019-05-05 14:19 | NUR ---
Nutrition Follow-up: Pt sitting up in bed about to eat lunch at time of visit. Reports good appetite/PO intake. Drinking 2 Nepro/day. Noted ST signed off. Diet: Renal ADA Wt: 266# Last BM: 05/03 per chart Labs noted: K+ 5.2, Glu 200, Ca 8.2 Meds noted: Prednisone, Folate, vitamin D, Humalog, Miralax; Veltassa ordered Continue current diet as tolerated. RD following.
--- NOTE | 2019-05-05 14:32 | MORECARE ---
CASE MANAGEMENT DISCHARGE SUMMARY PATIENT: CHALO MA UNIT: [id number] ADM DATE: 04/25/19 AGE: 73 : 44 SEX: F ROOM/BED: D.0709 AUTHOR: ANA M,DOC PHYSICIAN: REFERRING PHYSICIAN: JED SIU MD DATE OF SERVICE: 05/05/19 Discharge Plan Patient Name: CHALO MA Facility: [facility]:[place] : 1945 Planned Disposition: Alf Facility Anticipated Discharge Date: Discharge Date: Expected LOS: Initial Reviewer: [id number] Initial Review Date: 04/25/2019 Generated: 05/05/19 3:32 pm Comments DCP- Discharge Planning Updated by [email or web address]: Chinedu Benitez on 05/05/19 1:[address] Patient Name: CHALO MA Encounter No: [id number] : 1945 Primary Insurance: MEDICARE A & B Anticipated DC Date: Planned Disposition: Alf Facility External [facility] SWING BED, SKILLED MEDICARE REHAB BED DCP follow-up note: CM CALLED [facility], , SPOKE TO KARY WHO INFORMED CM THAT THEY HAVE SWING BED WITH THERAPY SERVICES, BILLED TO SNF DAYS. PT WILL HAVE 30 TO 45 MINUTES OF THERAPY PER DAY, TWICE PER DAY AND PT WILL BE REQUIRED TO PARTICIPATE FULLY AND WALK. CM FAXED REFERRAL TO [facility] AT [phone]. CM NOTIFIED PT WHO ALSO WANTS REFERRAL SENT TO THE [facility] IN [place]. PT SIGNED CONSENT FOR [facility]. CM CALLED [facility], , SPOKE TO KARY WHO INFORMED CM THAT THEY HAVE REHAB BEDS AVAILABLE. CM FAXED REFERRAL TO [facility], GREG, , FOR REHAB CONSIDERATION. CM WAITING ADMISSION DETERMINATIONS FROM [facility] FOR SWING BED, SKILLED REHAB [facility]. Chinedu Benitez CASE VIDHYA DCP- Discharge Planning Updated by [email or web address]: Chinedu Benitez on 05/04/19 4:[address] Patient Name: CHALO MA Encounter No: [id number] : 1945 Primary Insurance: MEDICARE A & B Anticipated DC Date: Planned Disposition: Inpatient Rehab External Planned Provider: [facility] INPATIENT REHAB DCP follow-up note: CM SPOKE TO PT REGARDING REHAB PT HAS STATED TO DR. DIAZ SHE WANTS REHAB CLOSER TO HOME. PT STATES SHE AND HER HAVE TALKED AND SHE WANTS REFERRED TO INPATIENT REHAB AT [facility] IN [place], [place]. IMPORTANT MESSAGE FROM MEDICARE PROVIDED AND EXPLAINED. CM TO CALL AND SEND REFERRAL TO [facility] INPATIENT REHAB SOON POSSIBLE. Chinedu Benitez, CASE MANAGEMENT DCP- Discharge Planning Updated by [id number]: Chinedu Benitez on 04/28/19 1:[address] Patient Name: CHALO MA Admission Status: Urgent Accout number: [id number] Admission Date: 04-25-2019 : 1945 Admission Diagnosis:SHORTNESS OF BREATH Attending: JED SIU Current LOS: 3 Anticipated DC Date: Planned Disposition: Home with Home Health Primary Insurance: MEDICARE A & B PLANNED EXTERNAL PROVIDER: [facility] Discharge Planning Comments: CM MET WITH PT AND SPOUSE IN ROOM TO DISCUSS DISCHARGE PLANNING AND NEEDS. CHALO MA provided verbal consent to discuss current and ongoing needs with/in the presence of: SPOUSE, EJ. PT REPORTS LIVING AT HOME INDEPENDENTLY WITH HER SPOUSE. PT HAS BEDSIDE COMMODE, CANE, NEBULIZER, HOME AND PORTABLE OXYGEN WALKER AND ELECTRIC WHEELCHAIR. MEDICAL EQUIPMENT PROVIDER IS [facility]. PT HAS HOME HEALTH WITH [facility] FOR NURSING AND PHYSICAL THERAPY. CM DISCUSSED AVAILABILITY OF HOME HEALTH, REHAB SERVICES AND MEDICAL EQUIPMENT. CM DISCUSSED INPATIENT REHAB PRESCREENING ORDER, DISCUSSED AVAILABILITY OF INPATIENT AND SNF REHAB, PROVIDERS AND LOCATIONS. PT DENIES DISCHARGE NEEDS AND WANTS TO RETURN HOME WITH HOME HEALTH. PT'S SPOUSE IN AGREEMENT WITH PLAN. PT'S SPOUSE WILL PICK PT UP FOR DISCHARGE HOME. IMPORTANT MESSAGE FROM MEDICARE PROVIDED AND EXPLAINED. CHOICE FOR HOME HEALTH SIGNED. CM DISCUSSED THERAPY PROGRESS AND ASKED PT'S SPOUSE IF HE HAS BEEN HERE FOR THERAPY AND CAN HE ASSIST PT IN HER CURRENT CONDITION SAFELY. PT'S SPOUSE REPORTS HE HAS SEEN THERAPY WORKING WITH PT AND HE CAN PROVIDE THE CARE PT NEEDS AT HOME. PT'S SPOUSE REPORTS PT IS NOT GOING TO REHAB AND WILL BE GOING HOME WITH HOME HEALTH RESUMPTION. CM PROVIDED CM CONTACT INFORMATION AND ASKED THAT PT OR SPOUSE NOTIFY CM IF THEY CHANGE THEIR MIND AND WANT REHAB PLACEMENT PRIOR TO GOING HOME. CM CALLED [facility], , DISCUSSED WITH [facility] WHO CONFIRMED PT IS ACTIVE AND THEY WILL RESUME SERVICES AT DISCHARGE. [facility] AGREES THAT PT WOULD BENEFIT FROM REHAB PRIOR TO RETURN HOME. PT PLANS TO DISCHARGE HOME WITH SPOUSE AND HOME HEALTH RESUMPTION. FOR DISCHARGE HOME WITH HOME HEALTH RESUMPTION, NOTIFY [facility] AT [phone]. FAX DISCHARGE INFORMATION TO [facility] AT [phone]. CM TO CONTINUE TO FOLLOW AND ASSIST NEEDED. Loan Processor: Chinedu Benitez DCPIA - Discharge Planning Initial Assessment Updated by JAYCE: Chinedu Beintez on 04/28/19 2:25 pm * Is the patient Alert and Oriented? Yes * How many steps to enter\exit or inside your home? NONE * PCP DR. BURTON * Pharmacy [facility] IN [place] * Preadmission Environment Home with Family * ADLs Independent * Equipment Bedside Commode Cane Nebulizer Oxygen Power Chair or Electric Scooter * Other Equipment HOME AND PORTABLE OXYGEN [facility] PATIENT [facility] * List name and contact numbers for known caregivers / representatives who currently or will assist patient after discharge: TITA MA, SPOUSE, * Verbal permission to speak to the caregivers and representatives has been obtained from the patient. Yes * Community resources currently utilized Home Health * Please name any agencies selected above. [facility], [facility], THERAPY SERVICES T- [phone], F [phone] * Additional services required to return to the preadmission environment? Yes * Can the patient safely return to the preadmission environment? Yes * Has this patient been hospitalized within the prior 30 days at any hospital? No Coverage Notice Reviewer: [id number] Benitez Notice Issued Date-Time: 04/28/2019 13:45 Notice Type: Patient Choice Letter Notice Delivered To: Family Member Relationship to Patient: Spouse Ticket Attendant Name: TITA MA Delivery Method: HAND - Hand Delivered Chary Days: Prior Verbal Notification: Recipient Understood Notice: Yes Recipient Signature: Yes Med Rec Note Co-signed by Attending: Coverage Notice Comment: [facility] - [facility] Reviewer: JAYCE Benitez Notice Issued Date-Time: 04/28/2019 13:45 Notice Type: IM Discharge Notice Notice Delivered To: Family Member Relationship to Patient: Spouse Ticket Attendant Name: TITA MA Delivery Method: HAND - Hand Delivered Chary Days: Prior Verbal Notification: Recipient Understood Notice: Yes Recipient Signature: Yes Med Rec Note Co-signed by Attending: Coverage Notice Comment: Reviewer: [id number] - Chinedu Benitez Notice Issued Date-Time: 05/04/2019 9:55 Notice Type: IM Discharge Notice Notice Delivered To: Patient Relationship to Patient: Ticket Attendant Name: Delivery Method: HAND - Hand Delivered Chary Days: Prior Verbal Notification: Recipient Understood Notice: Yes Recipient Signature: Yes Med Rec Note Co-signed by Attending: Coverage Notice Comment: Last DP export: 05/05/19 1:13 pm Patient Name: CHALO MA Page [id number] at 1432 All edits/amendments must be made on the electronic document DICTATION DATE: 05/05/19 1431 SEXUAL ASSAULT RESPONSE COORDINATOR: AVINASH 05/05/19 1431 RPT#: [id number] DC DATE: STATUS: ADM IN [facility] [address] [place] [address] END OF REPORT
--- NOTE | 2019-05-05 16:02 | MORECARE ---
CASE MANAGEMENT DISCHARGE SUMMARY PATIENT: CHALO MA UNIT: [id number] ADM DATE: 04/25/19 AGE: 73 : 43 SEX: F ROOM/BED: D.4799 AUTHOR: ANA M,DOC PHYSICIAN: REFERRING PHYSICIAN: JED SIU MD DATE OF SERVICE: 05/05/19 Discharge Plan Patient Name: CHALO MA Facility: [facility]:[place] : 1945 Planned Disposition: Long-Term Facility Anticipated Discharge Date: Discharge Date: Expected LOS: Initial Reviewer: [id number] Initial Review Date: 04/25/2019 Generated: 05/05/19 5:02 pm Comments DCP- Discharge Planning Updated by [email or web address]: Chinedu Benitez on 05/05/19 2:[address] Patient Name: CHALO MA Encounter No: [id number] : 1945 Primary Insurance: MEDICARE A & B Anticipated DC Date: Planned Disposition: Long-Term Facility External Planned Provider: [facility] SWING BED, SKILLED MEDICARE REHAB BED DCP follow-up note: CM RECEIVED CALL [facility], , THEY WOULD LIKE TO TAKE PT AND HAVE CALLED PT'S SPOUSE, Catracho, WHO INFORMED THEM THAT HE WANTS PT PLACED IN [place]. CM SPOKE TO PT WHO REPORTS THAT IF HER SAID SO, THEN SHE IS IN AGREEMENT. CM DISCUSSED BEING ABLE TO TRANSFER TO CHAIR AND GET INTO A CAR FOR TRANSPORT [facility], IF THEY ACCEPT, WILL NOT BE PROVIDING TRANSPORTATION. PT REPORTS ABILITY TO STAND AND TRANSFER AND DID SO WITH THERAPY TODAY. CM WAITING ADMISSION DETERMINATION FROM [facility] FOR SWING BED, SKILLED REHAB. Chinedu Benitez, CASE MANAGEMENT DCP- Discharge Planning Updated by [id number]: Chinedu Benitez on 05/05/19 1:[address] Patient Name: CHALO MA Encounter No: [id number] : 1945 Primary Insurance: MEDICARE A & B Anticipated DC Date: Planned Disposition: Long-Term Facility External Planned Provider: [facility] OR [facility] SWING BED, SKILLED MEDICARE REHAB BED DCP follow-up note: CM CALLED [facility], , SPOKE TO KARY WHO INFORMED CM THAT THEY HAVE SWING BED WITH THERAPY SERVICES, BILLED TO CORRECTION DAYS. PT WILL HAVE 30 TO 45 MINUTES OF THERAPY PER DAY, TWICE PER DAY AND PT WILL BE REQUIRED TO PARTICIPATE FULLY AND WALK. CM FAXED REFERRAL TO [facility] AT [phone]. CM NOTIFIED PT WHO ALSO WANTS REFERRAL SENT TO [facility] IN [place]. PT SIGNED [facility]. [facility], , SPOKE TO KARY WHO INFORMED CM THAT THEY HAVE REHAB BEDS AVAILABLE. CM FAXED REFERRAL TO INFORMATION SYSTEMS TECHNICIAN, GREG, , FOR REHAB CONSIDERATION. CM WAITING ADMISSION DETERMINATIONS FROM [facility] FOR SWING BED, SK[facility]HAB [facility] FOR [facility]RECTION REHAB. Chinedu Benitez CASE MANAGEMENT DCP- Discharge Planning Updated by [id number]: Chinedu Benitez on 05/04/19 4:[address] Patient Name: CHALO MA Encounter No: [id number] : 1945 Primary Insurance: MEDICARE A & B Anticipated DC Date: Planned Disposition: Inpatient Rehab External Planned Provider: [facility] INPATIENT REHAB DCP follow-up note: CM SPOKE TO PT REGARDING REHAB PT HAS STATED TO DR. DIAZ SHE WANTS REHAB CLOSER TO HOME. PT STATES SHE AND HER HAVE TALKED AND SHE WANTS REFERRED TO INPATIENT REHAB AT [facility] IN [place], [place]. IMPORTANT MESSAGE FROM MEDICARE PROVIDED AND EXPLAINED. CM TO CALL AND SEND REFERRAL TO [facility] INPATIENT REHAB SOON POSSIBLE. JOCY Whiting DCP- Discharge Planning Updated by [id number]: Chinedu Benitez on 04/28/19 1:[address] Patient Name: CHALO MA Admission Status: Urgent Accout number: [id number] Admission Date: 04-25-2019 : 1945 Admission Diagnosis:SHORTNESS OF BREATH Attending: JED SIU Current LOS: 3 Anticipated DC Date: Planned Disposition: Home with Home Health Primary Insurance: MEDICARE A & B PLANNED EXTERNAL PROVIDER: [facility]ALTH Discharge Planning Comments: CM MET WITH PT AND SPOUSE IN ROOM TO DISCUSS DISCHARGE PLANNING AND NEEDS. CHALO MA provided verbal consent to discuss current and ongoing needs with/in the presence of: SPOUSE, TITA. PT REPORTS LIVING AT HOME INDEPENDENTLY WITH HER SPOUSE. PT HAS BEDSIDE COMMODE, CANE, NEBULIZER, HOME AND PORTABLE OXYGEN WALKER AND ELECTRIC WHEELCHAIR. MEDICAL EQUIPMENT PROVIDER IS [facility]. PT HAS HOME HEALTH WITH [facility] FOR NURSING AND PHYSICAL THERAPY. CM DISCUSSED AVAILABILITY OF HOME HEALTH, REHAB SERVICES AND MEDICAL EQUIPMENT. CM DISCUSSED INPATIENT REHAB PRESCREENING ORDER, DISCUSSED AVAILABILITY OF INPATIENT AND CORRECTION REHAB, PROVIDERS AND LOCATIONS. PT DENIES DISCHARGE NEEDS AND WANTS TO RETURN HOME WITH HOME HEALTH. PT'S SPOUSE IN AGREEMENT WITH PLAN. PT'S SPOUSE WILL PICK PT UP FOR DISCHARGE HOME. IMPORTANT MESSAGE FROM MEDICARE PROVIDED AND EXPLAINED. CHOICE FOR HOME HEALTH SIGNED. CM DISCUSSED THERAPY PROGRESS AND ASKED PT'S SPOUSE IF HE HAS BEEN HERE FOR THERAPY AND CAN HE ASSIST PT IN HER CURRENT CONDITION SAFELY. PT'S SPOUSE REPORTS HE HAS SEEN THERAPY WORKING WITH PT AND HE CAN PROVIDE THE CARE PT NEEDS AT HOME. PT'S SPOUSE REPORTS PT IS NOT GOING TO REHAB AND WILL BE GOING HOME WITH HOME HEALTH RESUMPTION. CM PROVIDED CM CONTACT INFORMATION AND ASKED THAT PT OR SPOUSE NOTIFY CM IF THEY CHANGE THEIR MIND AND WANT REHAB PLACEMENT PRIOR TO GOING HOME. CM CALLED [facility], , DISCUSSED WITH [facility] WHO CONFIRMED PT IS ACTIVE AND THEY WILL RESUME SERVICES AT DISCHARGE. [facility] AGREES THAT PT WOULD BENEFIT FROM REHAB PRIOR TO RETURN HOME. PT PLANS TO DISCHARGE HOME WITH SPOUSE AND HOME HEALTH RESUMPTION. FOR DISCHARGE HOME WITH HOME HEALTH RESUMPTION, NOTIFY [facility] AT [phone]. FAX DISCHARGE INFORMATION TO [facility] AT [phone]. CM TO CONTINUE TO FOLLOW AND ASSIST NEEDED. Sheetrock Applicator: Chinedu Benitez DCPIA - Discharge Planning Initial Assessment Updated by [id number]: Chinedu Benitez on 04/28/19 2:25 pm * Is the patient Alert and Oriented? Yes * How many steps to enter\exit or inside your home? NONE * PCP DR. BURTON * Pharmacy [facility] IN [place] * Preadmission Environment Home with Family * ADLs Independent * Equipment Bedside Commode Cane Nebulizer Oxygen Power Chair or Electric Scooter * Other Equipment HOME AND PORTABLE OXYGEN [facility] - [place] * List name and contact numbers for known caregivers / representatives who currently or will assist patient after discharge: TITA MA, SPOUSE, * Verbal permission to speak to the caregivers and representatives has been obtained from the patient. Yes * Community resources currently utilized Home Health * Please name any agencies selected above. [facility], [facility], THERAPY SERVICES T- [phone], F [phone] * Additional services required to return to the preadmission environment? Yes * Can the patient safely return to the preadmission environment? Yes * Has this patient been hospitalized within the prior 30 days at any hospital? No Coverage Notice Reviewer: JAYCE Benitez Notice Issued Date-Time: 04/28/2019 13:45 Notice Type: Patient Choice Letter Notice Delivered To: Family Member Relationship to Patient: Spouse Aviation Technical Systems Specialist Name: TITA MA Delivery Method: HAND - Hand Delivered Chary Days: Prior Verbal Notification: Recipient Understood Notice: Yes Recipient Signature: Yes Med Rec Note Co-signed by Attending: Coverage Notice Comment: [facility] Reviewer: JAYCE Benitez Notice Issued Date-Time: 04/28/2019 13:45 Notice Type: IM Discharge Notice Notice Delivered To: Family Member Relationship to Patient: Spouse Aviation Technical Systems Specialist Name: TITA MA Delivery Method: HAND - Hand Delivered Chary Days: Prior Verbal Notification: Recipient Understood Notice: Yes Recipient Signature: Yes Med Rec Note Co-signed by Attending: Coverage Notice Comment: Reviewer: JAYCE Benitez Notice Issued Date-Time: 05/04/2019 9:55 Notice Type: IM Discharge Notice Notice Delivered To: Patient Relationship to Patient: Aviation Technical Systems Specialist Name: Delivery Method: HAND - Hand Delivered Chary Days: Prior Verbal Notification: Recipient Understood Notice: Yes Recipient Signature: Yes Med Rec Note Co-signed by Attending: Coverage Notice Comment: Reviewer: JAYCE Benitez Notice Issued Date-Time: 05/05/2019 9:55 Notice Type: Patient Choice Letter Notice Delivered To: Patient Relationship to Patient: Aviation Technical Systems Specialist Name: Delivery Method: HAND - Hand Delivered Chary Days: Prior Verbal Notification: Recipient Understood Notice: Yes Recipient Signature: Yes Med Rec Note Co-signed by Attending: Coverage Notice Comment: [facility] Last DP export: 05/05/19 1:32 pm Patient Name: CHALO MA Page [id number] at 1602 All edits/amendments must be made on the electronic document DICTATION DATE: 05/05/19 160 GOVERNMENT AFFAIRS DIRECTOR: AVINASH 05/05/191601 RPT#: [id number] DC DATE: STATUS: ADM IN [facility] [address] [place] [address] END OF REPORT
--- NOTE | 2019-05-05 21:00 | NUR ---
A&O X 4. SUPINE IN BED, 1ST STEP OVERLAY MATTRESS IN USE. AT BS. GENERALIZED EDEMA NOTED. LUNG SOUNDS DIMINISHED BILATERALLY. FSBS 200. REPORTS BM EARLIER TODAY, BUT STATES SHE WOULD STILL LIKE TO RECIEVE MIRALAX. SEVERAL CIRCULAR SKIN TEARS TO BILAT ARMS, OINTMENT APPLIED. NYSTATIN POWDER APPLIED TO SKIN FOLDS. DENIES PAIN/DISCOMFORT AT THIS TIME, WILL CONTINUE TO MONITOR.
[2019-05-06 04:21] VITALS: BP 139/86
[2019-05-06 05:54] LABS: BASOPHILS 0.1 % (0-2); EOSINOPHILS 0 % (0-7); HEMOGLOBIN 9.9 g/dL (12-16); IMMATURE GRANULOCYTES 1.9 % (0-5); LYMPHOCYTES 21.9 % (15-50); MCH 27.4 pg (26.0-34.0); MCHC 31.9 g/dL (31.0-37.0); MCV 85.9 fL (80.0-100.0); MEAN PLATELET VOLUME 10.4 fL (7.4-10.4); MONOCYTES 7.3 % (2-11); NEUTROPHILS 68.8 % (40-80); PLATELET COUNT 274 10x3/uL (130-400); RBC 3.61 10x6/uL (4.00-5.40); WBC 7.5 10x3/uL (4.8-10.8)
[2019-05-06 06:34] LABS: ALBUMIN 2.3 g/dL (3.4-5.0); ANION GAP 9.1 mmol/L (8-16); BILIRUBIN - TOTAL 0.64 mg/dL (0.2-1.3); CALCIUM 8.4 mg/dL (8.5-10.1); CARBON DIOXIDE 30.5 mmol/L (21.0-32.0); POTASSIUM - SERUM 5.6 mmol/L (3.5-5.1); PROTEIN - SERUM 5.3 g/dL (6.4-8.2)
--- NOTE | 2019-05-06 07:00 | NUR ---
RECEIVED REPORT. ASSUMED CARE OF PATIENT. CALL LIGHT WITHIN REACH. PATIENT AT BEDSIDE. RESP EVEN AND UNLABORED. NO DISTRESS. DENIES NEEDS. PATIENT IS INCONTINENT OF BOWEL AND BLADDER. INFORMED PATIENT A URINE SPECIMEN IS NEEDED AND THIS TRAFFIC INVESTIGATOR WOULD COLLECT IT WITH AN IN AND OUT CATH, PATIENT VERBALIZED HER UNDERSTANDING AND AGREEABLE TO PROCEDURE. OVERLAY MATTRESS PATIENT.
[2019-05-06 08:45] VITALS: BP 114/64
--- NOTE | 2019-05-06 10:40 | NUR ---
UA COLLECTED VIA STERILE IN AND OUT CATH PATIENT IS INCONTINENT AND SENT TO LAB THIS TIME.
[2019-05-06 11:04] LABS: APPEARANCE CLEAR (CLEAR); BILIRUBIN NEGATIVE (NEGATIVE); COLOR YELLOW (YELLOW); CREATININE - URINE 77.2 mg/dL (30-125); GLUCOSE 1000 mg/dL (NEGATIVE); KETONE NEGATIVE (NEGATIVE); NITRITE NEGATIVE (NEGATIVE); PRO/CRE RATIO URINE 0.5 mg/g; PROTEIN NEGATIVE (NEGATIVE); PROTEIN - URINE 40.6 mg/dL (0.0-11.9); SPECIFIC GRAVITY 1.015 (1.005-1.020); UROBILINOGEN NORMAL (NORMAL)
[2019-05-06 11:05] LABS: EPITHELIAL CELLS 0-5 /hpf (0-5); WHITE CELLS - URINE 0-5 /hpf (0-5)
[2019-05-06 12:39] VITALS: BP 133/65
[2019-05-06 16:45] VITALS: BP 125/55
--- NOTE | 2019-05-06 17:24 | NUR ---
FSBS 179 - 2 UNITS HUMALOG ADMINISTERED PER SLIDING SCALE.
--- NOTE | 2019-05-06 19:39 | NUR ---
RECIEVED UP IN BED WITH HOB ELEVATED. ALERT AND ORIENTED X4. REMAINS BEDFAST. REMIANS ON 1ST STEP OVERLAY MATTRESS. OPEN ROUND AREA TO BILATERAL ARM. O2@ [address] GENERALIZED EDEMA TO UPPER AND LOWER EXTREMITIES. + 3 PITTING EDEMA TO BOTH FEET. S/T TO RIGHT KNEE WITH DSG INTACT. DENIES ANY NEEDS AT THIS TIME.
[2019-05-06 21:31] VITALS: BP 131/61
[2019-05-07 01:07] VITALS: BP 115/70
[2019-05-07 04:36] VITALS: BP 123/74
[2019-05-07 06:28] LABS: BASOPHILS 0.1 % (0-2); EOSINOPHILS 0 % (0-7); HEMATOCRIT 31.6 % (36.0-48.0); HEMOGLOBIN 10.1 g/dL (12-16); IMMATURE GRANULOCYTES 2.7 % (0-5); LYMPHOCYTES 23.1 % (15-50); MCH 27.4 pg (26.0-34.0); MCV 85.6 fL (80.0-100.0); MEAN PLATELET VOLUME 10.5 fL (7.4-10.4); MONOCYTES 7.5 % (2-11); NEUTROPHILS 66.6 % (40-80); PLATELET COUNT 247 10x3/uL (130-400); RBC 3.69 10x6/uL (4.00-5.40); RDW 16.2 % (11.5-14.5); WBC 8.3 10x3/uL (4.8-10.8)
[2019-05-07 06:55] LABS: ALBUMIN 2.3 g/dL (3.4-5.0); ANION GAP 10.3 mmol/L (8-16); BILIRUBIN - TOTAL 0.61 mg/dL (0.2-1.3); CALCIUM 8.8 mg/dL (8.5-10.1); CARBON DIOXIDE 29.8 mmol/L (21.0-32.0); CREATININE - SERUM 1.2 mg/dL (0.6-1.3); POTASSIUM - SERUM 5.1 mmol/L (3.5-5.1); PROTEIN - SERUM 5.5 g/dL (6.4-8.2)
--- NOTE | 2019-05-07 07:00 | NUR ---
RECEIVED REPORT. ASSUMED CARE OF PATIENT. RESTING WELL WITH EYES OPEN. RESP EVEN AND UNLABORED. 1ST STEP OVERLAY PATENT. CALL LIGHT WITHIN REACH. PATIENT STATES SHE SLEPT WELL LAST NIGHT. NO DISTRESS. DENIES NEEDS.
[2019-05-07 08:11] VITALS: BP 120/65
--- NOTE | 2019-05-07 09:52 | NUR ---
PULLEP UP AND REPOSITIONED PATIENT IN BED. CALL LIGHT WITHIN REACH. NO DISTRESS.
--- NOTE | 2019-05-07 10:11 | NUR ---
PATIENT GOT OOB WITH PT AND WALKED ABOUT 6 FEET. PATIENT ASSISTED BACK TO BED. SHE STATES IT REALLY WORE HER OUT TO WALK THOSE 6 FT BUT GLAD SHE WAS ABLE TO GET OOB AND GO THAT FAR. CALL LIGHT WITHIN REACH. NO DISTRESS.
[2019-05-07 11:34] VITALS: BP 119/63
--- NOTE | 2019-05-07 11:38 | NUR ---
FSBS 232. 4 UNITS HUMALOG ADMINISTERED PER SLIDING SCALE.
--- NOTE | 2019-05-07 13:00 | NUR ---
ASSISTED TO PULL PATIENT UP IN BED. NO DISTRESS.
[2019-05-07 15:52] VITALS: BP 110/67
--- NOTE | 2019-05-07 16:56 | NUR ---
FSBS 232, SAME LUNCHTIME. 4 UNITS HUMALOG ADMINISTERED PER SLIDING SCALE. NO DISTRESS. PATIENT SITTING UP IN BED CONSUMING PM MEAL AT THIS TIME.
--- NOTE | 2019-05-07 18:41 | NUR ---
RESTING IN BED WITH EYES CLOSED. CALL LIGHT WITHIN REACH. RESP EVEN AND UNLABORED. NO DISTRESS.
[2019-05-07 20:00] VITALS: BP 108/57
[2019-05-08 00:01] VITALS: BP 110/59
[2019-05-08 04:00] VITALS: BP 110/65
[2019-05-08 05:35] LABS: BASOPHILS 0.2 % (0-2); EOSINOPHILS 0.5 % (0-7); HEMATOCRIT 30.9 % (36.0-48.0); HEMOGLOBIN 10.1 g/dL (12-16); IMMATURE GRANULOCYTES 3.5 % (0-5); LYMPHOCYTES 30.8 % (15-50); MCH 27.9 pg (26.0-34.0); MCHC 32.7 g/dL (31.0-37.0); MCV 85.4 fL (80.0-100.0); MEAN PLATELET VOLUME 10.7 fL (7.4-10.4); MONOCYTES 12.8 % (2-11); NEUTROPHILS 52.2 % (40-80); PLATELET COUNT 272 10x3/uL (130-400); RBC 3.62 10x6/uL (4.00-5.40); RDW 16.1 % (11.5-14.5)
[2019-05-08 06:09] LABS: ALBUMIN 2.3 g/dL (3.4-5.0); ANION GAP 8.3 mmol/L (8-16); BILIRUBIN - TOTAL 0.6 mg/dL (0.2-1.3); CALCIUM 8.9 mg/dL (8.5-10.1); CREATININE - SERUM 1.1 mg/dL (0.6-1.3); PROTEIN - SERUM 5.4 g/dL (6.4-8.2)
[2019-05-08 06:15] LABS: POTASSIUM - SERUM 4.3 mmol/L (3.5-5.1)
[2019-05-08 07:38] VITALS: BP 111/61
--- NOTE | 2019-05-08 09:34 | MORECARE ---
CASE MANAGEMENT DISCHARGE SUMMARY PATIENT: CHALO MA UNIT: [id number] ADM DATE: 04/25/19 AGE: 73 : 44 SEX: F ROOM/BED: D.5875 AUTHOR: ANA M,DOC PHYSICIAN: REFERRING PHYSICIAN: JED SIU MD DATE OF SERVICE: 05/08/19 Discharge Plan Patient Name: CHALO MA Facility: [facility]:[place] : 1945 Planned Disposition: Detention Facility Anticipated Discharge Date: Discharge Date: Expected LOS: Initial Reviewer: [id number] Initial Review Date: 04/25/2019 Generated: 05/08/19 10:34 am Comments DCP- Discharge Planning Updated by [email or web address]: Chinedu Benitez on 05/08/19 8:[address] Patient Name: CHALO MA Encounter No: [id number] : 1945 Primary Insurance: MEDICARE A & B Anticipated DC Date: Planned Disposition: Detention Facility External Planned Provider: [facility], MEDICARE SWING BED DCP follow-up note: CM CALLED [facility], , LEFT MESSAGE FOR AGRICULTURAL MECHANIC KARY, REQUESTING ADMISSION DETERMINATION AND RETURN PHONE CALL. Chinedu Benitez DCP- Discharge Planning Updated by [id number]: Chinedu Benitez on 05/05/19 2:[address] Patient Name: CHALO MA Encounter No: [id number] : 1945 Primary Insurance: MEDICARE A & B Anticipated DC Date: Planned Disposition: Detention Facility External Planned Provider: [facility] SWING BED, SKILLED MEDICARE REHAB BED DCP follow-up note: CM [facility]CEIV[facility], , THEY WOULD LIKE TO TAKE PT AND HAVE CALLED PT'S SPOUSE, Yue.J., WHO INFORMED THEM THAT HE WANTS PT PLACED IN [place]. CM SPOKE TO PT WHO REPORTS THAT IF HER SAID SO, THEN SHE IS IN AGREEMENT. CM DISCUSSED BEING ABLE TO TRANSFER TO CHAIR AND GET INTO A CAR FOR TRANSPORT [facility], IF [facility], WILL NOT BE PROVIDING TRANSPORTATION. PT REPORTS ABILITY TO STAND AND TRANSFER AND DID SO WITH THERAPY TODAY. CM WAITING ADMISSION DETERMINATION FROM [facility] FOR SWING BED, SKILLED REHAB. JOCY Whiting DCP- Discharge Planning Updated by [id number]: Chinedu Benitez on 05/05/19 1:[address] Patient Name: CHALO MA Encounter No: [id number] : 1945 Primary Insurance: MEDICARE A & B Anticipated DC Date: Planned Disposition: Detention Facility External Planned Provider: [facility] [facility] OR [facility] SWING BED, SKILLED MEDICARE REHAB BED DCP follow-up note: CM CALLED [facility], , SPOKE TO KARY WHO INFORMED CM THAT THEY HAVE SWING BED WITH THERAPY SERVICES, BILLED TO GROUP HOME DAYS. PT WILL HAVE 30 TO 45 MINUTES OF THERAPY PER DAY, TWICE PER DAY AND PT WILL BE REQUIRED TO PARTICIPATE FULLY AND WALK. CM FAXED REFERRAL TO [facility] AT [phone]. CM NOTIFIED PT WHO ALSO WANTS REFERRAL SENT TO [facility] [place]. PT SIGNED CONSENT FOR [facility]. [facility], , SPOKE TO KARY WHO INFORMED CM THAT THEY HAVE REHAB BEDS AVAILABLE. CM FAXED REFERRAL TO METAL POLISHER, GREG, , FOR REHAB CONSIDERATION. CM WAITING ADMISSION DETERMINATIONS FROM [facility] FOR SWING BED, SKILLED REHAB AND [facility] FOR GROUP HOME REHAB. JOCY Whiting DCP- Discharge Planning Updated by [id number]: Chinedu Benitez on 05/04/19 4:[address] Patient Name: CHALO MA Encounter No: [id number] : 1945 Primary Insurance: MEDICARE A & B Anticipated DC Date: Planned Disposition: Inpatient Rehab External Planned Provider: [facility] INPATIENT REHAB DCP follow-up note: CM SPOKE TO PT REGARDING REHAB PT HAS STATED TO DR. DIAZ SHE WANTS REHAB CLOSER TO HOME. PT STATES SHE AND HER HAVE TALKED AND SHE WANTS REFERRED TO INPATIENT REHAB AT [facility] IN [place], [place]. IMPORTANT MESSAGE FROM MEDICARE PROVIDED AND EXPLAINED. CM TO CALL AND SEND REFERRAL TO [facility] INPATIENT REHAB SOON POSSIBLE. Chinedu Benitez CASE VIDHYA DCP- Discharge Planning Updated by [id number]: Chinedu Benitez on 04/28/19 1:[address] Patient Name: CHALO MA Admission Status: Urgent Accout number: [id number] Admission Date: 04-25-2019 : 1945 Admission Diagnosis:SHORTNESS OF BREATH Attending: JED SIU Current LOS: 3 Anticipated DC Date: Planned Disposition: Home with Home Health Primary Insurance: MEDICARE A & B PLANNED EXTERNAL PROVIDER: [facility] Discharge Planning Comments: CM MET WITH PT AND SPOUSE IN ROOM TO DISCUSS DISCHARGE PLANNING AND NEEDS. CHALO MA provided verbal consent to discuss current and ongoing needs with/in the presence of: SPOUSE, EJ. PT REPORTS LIVING AT HOME INDEPENDENTLY WITH HER SPOUSE. PT HAS BEDSIDE COMMODE, CANE, NEBULIZER, HOME AND PORTABLE OXYGEN WALKER AND ELECTRIC WHEELCHAIR. MEDICAL EQUIPMENT PROVIDER IS [facility] PATIENT. PT HAS HOME HEALTH WITH [facility] FOR NURSING AND PHYSICAL THERAPY. CM DISCUSSED AVAILABILITY OF HOME HEALTH, REHAB SERVICES AND MEDICAL EQUIPMENT. CM DISCUSSED INPATIENT REHAB PRESCREENING ORDER, DISCUSSED AVAILABILITY OF INPATIENT AND GROUP HOME REHAB, PROVIDERS AND LOCATIONS. PT DENIES DISCHARGE NEEDS AND WANTS TO RETURN HOME WITH HOME HEALTH. PT'S SPOUSE IN AGREEMENT WITH PLAN. PT'S SPOUSE WILL PICK PT UP FOR DISCHARGE HOME. IMPORTANT MESSAGE FROM MEDICARE PROVIDED AND EXPLAINED. CHOICE FOR HOME HEALTH SIGNED. CM DISCUSSED THERAPY PROGRESS AND ASKED PT'S SPOUSE IF HE HAS BEEN HERE FOR THERAPY AND CAN HE ASSIST PT IN HER CURRENT CONDITION SAFELY. PT'S SPOUSE REPORTS HE HAS SEEN THERAPY WORKING WITH PT AND HE CAN PROVIDE THE CARE PT NEEDS AT HOME. PT'S SPOUSE REPORTS PT IS NOT GOING TO REHAB AND WILL BE GOING HOME WITH HOME HEALTH RESUMPTION. CM PROVIDED CM CONTACT INFORMATION AND ASKED THAT PT OR SPOUSE NOTIFY CM IF THEY CHANGE THEIR MIND AND WANT REHAB PLACEMENT PRIOR TO GOING HOME. CM CALLED [facility], , DISCUSSED WITH SPR[facility] WHO CONFIRMED PT IS ACTIVE AND THEY WILL RESUME SERVICES AT DISCHARGE. [facility] AGREES THAT PT WOULD BENEFIT FROM REHAB PRIOR TO RETURN HOME. PT PLANS TO DISCHARGE HOME WITH SPOUSE AND HOME HEALTH RESUMPTION. FOR DISCHARGE HOME WITH HOME HEALTH RESUMPTION, NOTIFY [facility] AT [phone]. FAX DISCHARGE INFORMATION TO [facility] AT [phone]. CM TO CONTINUE TO FOLLOW AND ASSIST NEEDED. Glassworker: Chinedu Benitez DCPIA - Discharge Planning Initial Assessment Updated by [id number]: Chinedu Benitez on 04/28/19 2:25 pm * Is the patient Alert and Oriented? Yes * How many steps to enter\exit or inside your home? NONE * PCP DR. BURTON * Pharmacy [facility] IN [place] * Preadmission Environment Home with Family * ADLs Independent * Equipment Bedside Commode Cane Nebulizer Oxygen Power Chair or Electric Scooter * Other Equipment HOME AND PORTABLE OXYGEN [facility]IENT - [place] * List name and contact numbers for known caregivers / representatives who currently or will assist patient after discharge: TITA MA, SPOUSE, * Verbal permission to speak to the caregivers and representatives has been obtained from the patient. Yes * Community resources currently utilized Home Health * Please name any agencies selected above. [facility], [facility], THERAPY SERVICES T- [phone], F [phone] * Additional services required to return to the preadmission environment? Yes * Can the patient safely return to the preadmission environment? Yes * Has this patient been hospitalized within the prior 30 days at any hospital? No Coverage Notice Reviewer: JAYCE Benitez Notice Issued Date-Time: 04/28/2019 13:45 Notice Type: Patient Choice Letter Notice Delivered To: Family Member Relationship to Patient: Spouse Livestock Caretaker Name: TITA MA Delivery Method: HAND - Hand Delivered Chary Days: Prior Verbal Notification: Recipient Understood Notice: Yes Recipient Signature: Yes Med Rec Note Co-signed by Attending: Coverage Notice Comment: [facility] Reviewer: JAYCE Benitez Notice Issued Date-Time: 04/28/2019 13:45 Notice Type: IM Discharge Notice Notice Delivered To: Family Member Relationship to Patient: Spouse Livestock Caretaker Name: TITA MA Delivery Method: HAND - Hand Delivered Chary Days: Prior Verbal Notification: Recipient Understood Notice: Yes Recipient Signature: Yes Med Rec Note Co-signed by Attending: Coverage Notice Comment: Reviewer: JAYCE Benitez Notice Issued Date-Time: 05/04/2019 9:55 Notice Type: IM Discharge Notice Notice Delivered To: Patient Relationship to Patient: Livestock Caretaker Name: Delivery Method: HAND - Hand Delivered Chary Days: Prior Verbal Notification: Recipient Understood Notice: Yes Recipient Signature: Yes Med Rec Note Co-signed by Attending: Coverage Notice Comment: Reviewer: JAYCE Benitez Notice Issued Date-Time: 05/05/2019 9:55 Notice Type: Patient Choice Letter Notice Delivered To: Patient Relationship to Patient: Livestock Caretaker Name: Delivery Method: HAND - Hand Delivered Chary Days: Prior Verbal Notification: Recipient Understood Notice: Yes Recipient Signature: Yes Med Rec Note Co-signed by Attending: Coverage Notice Comment: [facility] Last DP export: 05/05/19 3:02 pm Patient Name: CHALO MA Page [phone] at 0934 All edits/amendments must be made on the electronic document DICTATION DATE: 05/08/19933 CHARGE HISTOTECHNOLOGIST: AVINASH 05/08/19933 RPT#: [id number] DC DATE: STATUS: ADM IN [facility] [address] [place] [address] END OF REPORT
--- NOTE | 2019-05-08 09:41 | MORECARE ---
CASE MANAGEMENT DISCHARGE SUMMARY PATIENT: CHALO MA UNIT: [id number] ADM DATE: 04/25/19 AGE: 73 : 43 SEX: F ROOM/BED: D.4189 AUTHOR: ANA M,DOC PHYSICIAN: REFERRING PHYSICIAN: JED SIU MD DATE OF SERVICE: 05/08/19 Discharge Plan Patient Name: CHALO MA Facility: [facility]:[place] : 1945 Planned Disposition: Long-Term Facility Anticipated Discharge Date: Discharge Date: Expected LOS: Initial Reviewer: [id number] Initial Review Date: 04/25/2019 Generated: 05/08/19 10:41 am Comments DCP- Discharge Planning Updated by [id number]: Chinedu Benitez on 05/08/19 8:[address] Patient Name: CHALO MA Encounter No: [id number] : 1945 Primary Insurance: MEDICARE A & B Anticipated DC Date: Planned Disposition: Long-Term Facility External Planned Provider: [facility], MEDICARE SWING BED DCP follow-up note: CM CALLED [facility], , LEFT MESSAGE FOR RESEARCH PROJECT MANAGER KARY, REQUESTING ADMISSION DETERMINATION AND RETURN PHONE CALL. CM FAXED REFERRAL UPDATE TO [facility] FOR SWING BED CONSIDERATION AT [phone]. CM WAITING ADMISSION DETERMINATION FROM [facility] FOR SWING BED ADMISSION. Chinedu Benitez, CASE MANAGEMENT DCP- Discharge Planning Updated by [id number]: Chinedu Benitez on 05/05/19 2:[address] Patient Name: CHALO MA Encounter No: [id number] : 1945 Primary Insurance: MEDICARE A & B Anticipated DC Date: Planned Disposition: Long-Term Facility External Planned Provider: [facility] SWING BED, SKILLED MEDICARE REHAB BED DCP follow-up note: CM RECEIVED [facility], , THEY WOULD LIKE TO TAKE PT AND HAVE CALLED PT'S SPOUSE, Catracho, WHO INFORMED THEM THAT HE WANTS PT PLACED IN [place]. CM SPOKE TO PT WHO REPORTS THAT IF HER SAID SO, THEN SHE IS IN AGREEMENT. CM DISCUSSED BEING ABLE TO TRANSFER TO CHAIR AND GET INTO A CAR FOR TRANSPORT [facility], IF THEY ACCEPT, WILL NOT BE PROVIDING TRANSPORTATION. PT REPORTS ABILITY TO STAND AND TRANSFER AND DID SO WITH THERAPY TODAY. CM WAITING ADMISSION DETERMINATION FROM [facility] FOR SWING BED, SKILLED REHAB. JOCY Whiting DCP- Discharge Planning Updated by [id number]: Chinedu Benitez on 05/05/19 1:[address] Patient Name: CHALO MA Encounter No: [id number] : 1945 Primary Insurance: MEDICARE A & B Anticipated DC Date: Planned Disposition: Long-Term Facility External Planned Provider: [facility] OR [facility] SWING BED, SKILLED MEDICARE REHAB BED DCP follow-up note: CM CALLED [facility], , SPOKE TO KARY WHO INFORMED CM THAT THEY HAVE SWING BED WITH THERAPY SERVICES, BILLED TO [facility] DAYS. PT WILL HAVE 30 TO 45 MINUTES OF THERAPY PER DAY, TWICE PER DAY AND PT WILL BE REQUIRED TO PARTICIPATE FULLY AND WALK. CM FAXED REFERRAL TO [place] AT [phone]. CM NOTIFIED PT WHO ALSO WANTS REFERRAL SENT TO THE LONGTERM IN [place]. PT SIGNED CONSENT FOR [facility] [place]. CM [facility]ED [facility] [place], , SPOKE TO KARY WHO INFORMED CM THAT THEY HAVE REHAB BEDS AVAILABLE. CM FAXED REFERRAL TO HAND MOLDER, GREG, , FOR REHAB CONSIDERATION. CM WAITING ADMISSION DETERMINATIONS FROM [facility] FOR SWING BED, SKILLED REHAB [facility] FOR [facility] REHAB. JOCY Whiting DCP- Discharge Planning Updated by [id number]: Chinedu Benitez on 05/04/19 4:[address] Patient Name: CHALO MA Encounter No: [id number] : 1945 Primary Insurance: MEDICARE A & B Anticipated DC Date: Planned Disposition: Inpatient Rehab External Planned Provider: [facility] INPATIENT REHAB DCP follow-up note: CM SPOKE TO PT REGARDING REHAB PT HAS STATED TO DR. DIAZ SHE WANTS REHAB CLOSER TO HOME. PT STATES SHE AND HER HAVE TALKED AND SHE WANTS REFERRED TO INPATIENT REHAB AT [facility] IN [place], [place]. IMPORTANT MESSAGE FROM MEDICARE PROVIDED AND EXPLAINED. CM TO CALL AND SEND REFERRAL TO [facility] INPATIENT REHAB SOON POSSIBLE. Chinedu Benitez, CASE MANAGEMENT DCP- Discharge Planning Updated by [id number]: Chinedu Benitez on 04/28/19 1:[address] Patient Name: CHALO MA Admission Status: Urgent Accout number: [id number] Admission Date: 04-25-2019 : 1945 Admission Diagnosis:SHORTNESS OF BREATH Attending: JED SIU Current LOS: 3 Anticipated DC Date: Planned Disposition: Home with Home Health Primary Insurance: MEDICARE A & B PLANNED EXTERNAL PROVIDER: [facility] Discharge Planning Comments: CM MET WITH PT AND SPOUSE IN ROOM TO DISCUSS DISCHARGE PLANNING AND NEEDS. CHALO MA provided verbal consent to discuss current and ongoing needs with/in the presence of: SPOUSE, EJ. PT REPORTS LIVING AT HOME INDEPENDENTLY WITH HER SPOUSE. PT HAS BEDSIDE COMMODE, CANE, NEBULIZER, HOME AND PORTABLE OXYGEN WALKER AND ELECTRIC WHEELCHAIR. MEDICAL EQUIPMENT PROVIDER IS [facility] PATIENT. PT HAS HOME HEALTH WITH [facility] FOR NURSING AND PHYSICAL THERAPY. CM DISCUSSED AVAILABILITY OF HOME HEALTH, REHAB SERVICES AND MEDICAL EQUIPMENT. CM DISCUSSED INPATIENT REHAB PRESCREENING ORDER, DISCUSSED AVAILABILITY OF INPATIENT AND [facility] REHAB, PROVIDERS AND LOCATIONS. PT DENIES DISCHARGE NEEDS AND WANTS TO RETURN HOME WITH HOME HEALTH. PT'S SPOUSE IN AGREEMENT WITH PLAN. PT'S SPOUSE WILL PICK PT UP FOR DISCHARGE HOME. IMPORTANT MESSAGE FROM MEDICARE PROVIDED AND EXPLAINED. CHOICE FOR HOME HEALTH SIGNED. CM DISCUSSED THERAPY PROGRESS AND ASKED PT'S SPOUSE IF HE HAS BEEN HERE FOR THERAPY AND CAN HE ASSIST PT IN HER CURRENT CONDITION SAFELY. PT'S SPOUSE REPORTS HE HAS SEEN THERAPY WORKING WITH PT AND HE CAN PROVIDE THE CARE PT NEEDS AT HOME. PT'S SPOUSE REPORTS PT IS NOT GOING TO REHAB AND WILL BE GOING HOME WITH HOME HEALTH RESUMPTION. CM PROVIDED CM CONTACT INFORMATION AND ASKED THAT PT OR SPOUSE NOTIFY CM IF THEY CHANGE THEIR MIND AND WANT REHAB PLACEMENT PRIOR TO GOING HOME. CM CALLED [facility], , DISCUSSED WITH SPRING WHO CONFIRMED PT IS ACTIVE AND THEY WILL RESUME SERVICES AT DISCHARGE. [facility] AGREES THAT PT WOULD BENEFIT FROM REHAB PRIOR TO RETURN HOME. PT PLANS TO DISCHARGE HOME WITH SPOUSE AND HOME HEALTH RESUMPTION. FOR DISCHARGE HOME WITH HOME HEALTH RESUMPTION, NOTIFY [facility] AT [phone]. FAX DISCHARGE INFORMATION TO [facility] AT [phone]. CM TO CONTINUE TO FOLLOW AND ASSIST NEEDED. Impersonator Character: Chinedu Benitez DCPIA - Discharge Planning Initial Assessment Updated by JAYCE: Chinedu Benitez on 04/28/19 2:25 pm * Is the patient Alert and Oriented? Yes * How many steps to enter\exit or inside your home? NONE * PCP DR. BURTON * Pharmacy [facility] IN [place] * Preadmission Environment Home with Family * ADLs Independent * Equipment Bedside Commode Cane Nebulizer Oxygen Power Chair or Electric Scooter * Other Equipment HOME AND PORTABLE OXYGEN [facility] PATIENT - [place] * List name and contact numbers for known caregivers / representatives who currently or will assist patient after discharge: TITA MA, SPOUSE, * Verbal permission to speak to the caregivers and representatives has been obtained from the patient. Yes * Community resources currently utilized Home Health * Please name any agencies selected above. [facility], [facility], THERAPY SERVICES T- [phone], F [phone] * Additional services required to return to the preadmission environment? Yes * Can the patient safely return to the preadmission environment? Yes * Has this patient been hospitalized within the prior 30 days at any hospital? No Coverage Notice Reviewer: JAYCE Benitez Notice Issued Date-Time: 04/28/2019 13:45 Notice Type: Patient Choice Letter Notice Delivered To: Family Member Relationship to Patient: Spouse Skill Labor Name: TITA MA Delivery Method: HAND - Hand Delivered Chary Days: Prior Verbal Notification: Recipient Understood Notice: Yes Recipient Signature: Yes Med Rec Note Co-signed by Attending: Coverage Notice Comment: [facility] ([place]) - [facility] Reviewer: [id number] Benitez Notice Issued Date-Time: 04/28/2019 13:45 Notice Type: IM Discharge Notice Notice Delivered To: Family Member Relationship to Patient: Spouse Skill Labor Name: TITA MA Delivery Method: HAND - Hand Delivered Chary Days: Prior Verbal Notification: Recipient Understood Notice: Yes Recipient Signature: Yes Med Rec Note Co-signed by Attending: Coverage Notice Comment: Reviewer: JAYCE Benitez Notice Issued Date-Time: 05/05/2019 9:55 Notice Type: Patient Choice Letter Notice Delivered To: Patient Relationship to Patient: Skill Labor Name: Delivery Method: HAND - Hand Delivered Chary Days: Prior Verbal Notification: Recipient Understood Notice: Yes Recipient Signature: Yes Med Rec Note Co-signed by Attending: Coverage Notice Comment: [facility] Reviewer: [id number] Melinda Benitez Notice Issued Date-Time: 05/04/2019 9:55 Notice Type: IM Discharge Notice Notice Delivered To: Patient Relationship to Patient: Skill Labor Name: Delivery Method: HAND - Hand Delivered Chary Days: Prior Verbal Notification: Recipient Understood Notice: Yes Recipient Signature: Yes Med Rec Note Co-signed by Attending: Coverage Notice Comment: Last DP export: 05/08/19 8:34 am Patient Name: CHALO MA Page [id number] at 0941 All edits/amendments must be made on the electronic document DICTATION DATE: 05/08/19939 TRAILER STEERER: AVINASH 05/08/19939 RPT#: [id number] DC DATE: STATUS: ADM IN [facility] [address] [place] [address] END OF REPORT
[2019-05-08 11:39] VITALS: BP 124/62
--- NOTE | 2019-05-08 11:59 | NUR ---
PT LYING IN BED WITH HOB ELEVATED. EYES CLOSED. CHEST RISING AND FALLING. O2 AT 4L VIA NC. NO IV. AT BEDSIDE. PT HAS NO FURTHER NEEDS AT TIME. BED LOW. CL IN REACH.
[2019-05-08 14:51] VITALS: BP 122/74
--- NOTE | 2019-05-08 15:51 | MORECARE ---
CASE MANAGEMENT DISCHARGE SUMMARY PATIENT: CHALO MA UNIT: [id number] ADM DATE: 04/25/19 AGE: 73 : 44 SEX: F ROOM/BED: D.4819 AUTHOR: ANA M,DOC PHYSICIAN: REFERRING PHYSICIAN: JED SIU MD DATE OF SERVICE: 05/08/19 Discharge Plan Patient Name: CHALO MA Facility: [facility]:[place] : 1945 Planned Disposition: Assisted Facility Anticipated Discharge Date: 05/09/19 Discharge Date: Expected LOS: 14 Initial Reviewer: [id number] Initial Review Date: 04/25/2019 Generated: 05/08/19 4:51 pm Comments DCP- Discharge Planning Updated by [id number]: Chinedu Benitez on 05/08/19 8:[address] Patient Name: CHALO MA Encounter No: [id number] : 1945 Primary Insurance: MEDICARE A & B Anticipated DC Date: Planned Disposition: Assisted Facility External Planned Provider: [facility], MEDICARE SWING BED DCP follow-up note: CM CALLED [facility], , LEFT MESSAGE FOR ASSEMBLY ADJUSTER KARY, REQUESTING ADMISSION DETERMINATION AND RETURN PHONE CALL. CM FAXED REFERRAL UPDATE TO [facility] FOR SWING BED CONSIDERATION AT [phone]. CM WAITING ADMISSION DETERMINATION FROM [facility] FOR SWING BED ADMISSION. Chinedu Benitez CASE MANAGEMENT DCP- Discharge Planning Updated by [id number]: Chinedu Benitez on 05/05/19 2:[address] Patient Name: CHALO MA Encounter No: [id number] : 1945 Primary Insurance: MEDICARE A & B Anticipated DC Date: Planned Disposition: Assisted Facility External Planned Provider: [facility] SWING BED, SKILLED MEDICARE REHAB BED DCP follow-up note: CM RECEIV[facility] [place], , THEY WOULD LIKE TO TAKE PT AND HAVE CALLED PT'S SPOUSE, Morenita., WHO INFORMED THEM THAT HE WANTS PT PLACED IN [place]. CM SPOKE TO PT WHO REPORTS THAT IF HER SAID SO, THEN SHE IS IN AGREEMENT. CM DISCUSSED BEING ABLE TO TRANSFER TO CHAIR AND GET INTO A CAR FOR TRANSPORT [facility], IF THEY ACCEPT, WILL NOT BE PROVIDING TRANSPORTATION. PT REPORTS ABILITY TO STAND AND TRANSFER AND DID SO WITH THERAPY TODAY. CM WAITING ADMISSION DETERMINATION FROM [facility] FOR SWING BED, SKILLED REHAB. JOCY Whiting DCP- Discharge Planning Updated by [id number]: Chinedu Benitez on 05/05/19 1:[address] Patient Name: CHALO MA Encounter No: [id number] : 1945 Primary Insurance: MEDICARE A & B Anticipated DC Date: Planned Disposition: Assisted Facility External Planned Provider: [facility] [place] OR [facility] SWING BED, SKILLED MEDICARE REHAB BED DCP follow-up note: CM CALLED [facility], , SPOKE TO KARY WHO INFORMED CM THAT THEY HAVE SWING BED WITH THERAPY SERVICES, BILLED TO [facility] DAYS. PT WILL HAVE 30 TO 45 MINUTES OF THERAPY PER DAY, TWICE PER DAY AND PT WILL BE REQUIRED TO PARTICIPATE FULLY AND WALK. CM FAXED REFERRAL TO [place] AT [phone]. CM NOTIFIED PT WHO ALSO WANTS REFERRAL SENT TO THE RETIREMENT IN [place]. PT SIGNED CONSENT FOR [facility]. CM CALLED [facility], , SPOKE TO KARY WHO INFORMED CM THAT THEY HAVE REHAB BEDS AVAILABLE. CM FAXED REFERRAL TO ABORIGINAL EDUCATION WORKER COORDINATOR, GREG, , FOR REHAB CONSIDERATION. CM WAITING ADMISSION DETERMINATIONS FROM [facility] FOR SWING BED, SKILLED REHAB AND [facility] FOR [facility] REHAB. JOCY Whiting DCP- Discharge Planning Updated by [id number]: Chinedu Benitez on 05/04/19 4:[address] Patient Name: CHALO MA Encounter No: [id number] : 1945 Primary Insurance: MEDICARE A & B Anticipated DC Date: Planned Disposition: Inpatient Rehab External Planned Provider: [facility] INPATIENT REHAB DCP follow-up note: CM SPOKE TO PT REGARDING REHAB PT HAS STATED TO DR. DIAZ SHE WANTS REHAB CLOSER TO HOME. PT STATES SHE AND HER HAVE TALKED AND SHE WANTS REFERRED TO INPATIENT REHAB AT [facility] IN [place], [place]. IMPORTANT MESSAGE FROM MEDICARE PROVIDED AND EXPLAINED. CM TO CALL AND SEND REFERRAL TO [facility] INPATIENT REHAB SOON POSSIBLE. Chinedu Benitez, CASE MANAGEMENT DCP- Discharge Planning Updated by [id number]: Chinedu Benitez on 04/28/19 1:[address] Patient Name: CHALO MA Admission Status: Urgent Accout number: [id number] Admission Date: 04-25-2019 : 1945 Admission Diagnosis:SHORTNESS OF BREATH Attending: JED SIU Current LOS: 3 Anticipated DC Date: Planned Disposition: Home with Home Health Primary Insurance: MEDICARE A & B PLANNED EXTERNAL PROVIDER: [facility] Discharge Planning Comments: CM MET WITH PT AND SPOUSE IN ROOM TO DISCUSS DISCHARGE PLANNING AND NEEDS. CHALO MA provided verbal consent to discuss current and ongoing needs with/in the presence of: SPOUSE, EJ. PT REPORTS LIVING AT HOME INDEPENDENTLY WITH HER SPOUSE. PT HAS BEDSIDE COMMODE, CANE, NEBULIZER, HOME AND PORTABLE OXYGEN WALKER AND ELECTRIC WHEELCHAIR. MEDICAL EQUIPMENT PROVIDER IS [facility] PATIENT. PT HAS HOME HEALTH WITH [facility] FOR NURSING AND PHYSICAL THERAPY. CM DISCUSSED AVAILABILITY OF HOME HEALTH, REHAB SERVICES AND MEDICAL EQUIPMENT. CM DISCUSSED INPATIENT REHAB PRESCREENING ORDER, DISCUSSED AVAILABILITY OF INPATIENT AND [facility] REHAB, PROVIDERS AND LOCATIONS. PT DENIES DISCHARGE NEEDS AND WANTS TO RETURN HOME WITH HOME HEALTH. PT'S SPOUSE IN AGREEMENT WITH PLAN. PT'S SPOUSE WILL PICK PT UP FOR DISCHARGE HOME. IMPORTANT MESSAGE FROM MEDICARE PROVIDED AND EXPLAINED. CHOICE FOR HOME HEALTH SIGNED. CM DISCUSSED THERAPY PROGRESS AND ASKED PT'S SPOUSE IF HE HAS BEEN HERE FOR THERAPY AND CAN HE ASSIST PT IN HER CURRENT CONDITION SAFELY. PT'S SPOUSE REPORTS HE HAS SEEN THERAPY WORKING WITH PT AND HE CAN PROVIDE THE CARE PT NEEDS AT HOME. PT'S SPOUSE REPORTS PT IS NOT GOING TO REHAB AND WILL BE GOING HOME WITH HOME HEALTH RESUMPTION. CM PROVIDED CM CONTACT INFORMATION AND ASKED THAT PT OR SPOUSE NOTIFY CM IF THEY CHANGE THEIR MIND AND WANT REHAB PLACEMENT PRIOR TO GOING HOME. CM CALLED [facility], , DISCUSSED WITH SPRING WHO CONFIRMED PT IS ACTIVE AND THEY WILL RESUME SERVICES AT DISCHARGE. [facility] AGREES THAT PT WOULD BENEFIT FROM REHAB PRIOR TO RETURN HOME. PT PLANS TO DISCHARGE HOME WITH SPOUSE AND HOME HEALTH RESUMPTION. FOR DISCHARGE HOME WITH HOME HEALTH RESUMPTION, NOTIFY [facility] AT [phone]. FAX DISCHARGE INFORMATION TO [facility] AT [phone]. CM TO CONTINUE TO FOLLOW AND ASSIST NEEDED. Soap Tender: Chinedu Benitez DCPIA - Discharge Planning Initial Assessment Updated by JAYCE: Chinedu Benitez on 04/28/19 2:25 pm * Is the patient Alert and Oriented? Yes * How many steps to enter\exit or inside your home? NONE * PCP DR. BURTON * Pharmacy [facility] IN [place] * Preadmission Environment Home with Family * ADLs Independent * Equipment Bedside Commode Cane Nebulizer Oxygen Power Chair or Electric Scooter * Other Equipment HOME AND PORTABLE OXYGEN [place] PATIENT - [place] * List name and contact numbers for known caregivers / representatives who currently or will assist patient after discharge: TITA MA, SPOUSE, * Verbal permission to speak to the caregivers and representatives has been obtained from the patient. Yes * Community resources currently utilized Home Health * Please name any agencies selected above. [facility], [facility], THERAPY SERVICES T- [phone], F [phone] * Additional services required to return to the preadmission environment? Yes * Can the patient safely return to the preadmission environment? Yes * Has this patient been hospitalized within the prior 30 days at any hospital? No Coverage Notice Reviewer: [id number] Benitez Notice Issued Date-Time: 04/28/2019 13:45 Notice Type: Patient Choice Letter Notice Delivered To: Family Member Relationship to Patient: Spouse Press Technician Name: TITA MA Delivery Method: HAND - Hand Delivered Chary Days: Prior Verbal Notification: Recipient Understood Notice: Yes Recipient Signature: Yes Med Rec Note Co-signed by Attending: Coverage Notice Comment: [facility] - [facility] Reviewer: [id number] Benitez Notice Issued Date-Time: 04/28/2019 13:45 Notice Type: IM Discharge Notice Notice Delivered To: Family Member Relationship to Patient: Spouse Press Technician Name: TITA MA Delivery Method: HAND - Hand Delivered Chary Days: Prior Verbal Notification: Recipient Understood Notice: Yes Recipient Signature: Yes Med Rec Note Co-signed by Attending: Coverage Notice Comment: Reviewer: [id number] Benitez Notice Issued Date-Time: 05/04/2019 9:55 Notice Type: IM Discharge Notice Notice Delivered To: Patient Relationship to Patient: Press Technician Name: Delivery Method: HAND - Hand Delivered Chary Days: Prior Verbal Notification: Recipient Understood Notice: Yes Recipient Signature: Yes Med Rec Note Co-signed by Attending: Coverage Notice Comment: Reviewer: [id number] - Chinedu Benitez Notice Issued Date-Time: 05/05/2019 9:55 Notice Type: Patient Choice Letter Notice Delivered To: Patient Relationship to Patient: Press Technician Name: Delivery Method: HAND - Hand Delivered Chary Days: Prior Verbal Notification: Recipient Understood Notice: Yes Recipient Signature: Yes Med Rec Note Co-signed by Attending: Coverage Notice Comment: [facility] Last DP export: 05/08/19 8:41 am Patient Name: CHALO MA Page [id number] at 1551 All edits/amendments must be made on the electronic document DICTATION DATE: 05/08/19 1551 GUNSTOCK REPAIRER: AVINASH 05/08/19 1551 RPT#: [id number] DC DATE: STATUS: ADM IN [facility] [address] [place] [address] END OF REPORT
--- NOTE | 2019-05-08 17:32 | MORECARE ---
CASE MANAGEMENT DISCHARGE SUMMARY PATIENT: CHALO MA UNIT: [id number] ADM DATE: 04/25/19 AGE: 73 : 43 SEX: F ROOM/BED: D.1969 AUTHOR: ANA M,DOC PHYSICIAN: REFERRING PHYSICIAN: JED SIU MD DATE OF SERVICE: 05/08/19 Discharge Plan Patient Name: CHALO MA Facility: [facility]:[place] : 1945 Planned Disposition: Group Home Facility Anticipated Discharge Date: 05/09/19 Discharge Date: Expected LOS: 14 Initial Reviewer: [id number] Initial Review Date: 04/25/2019 Generated: 05/08/19 6:31 pm Comments DCP- Discharge Planning Updated by [email or web address]: Chinedu Benitez on 05/08/19 8:[address] Patient Name: CHALO MA Encounter No: [id number] : 1945 Primary Insurance: MEDICARE A & B Anticipated DC Date: Planned Disposition: Group Home Facility External Planned Provider: [facility], MEDICARE SWING BED DCP follow-up note: CM CALLED [facility], , LEFT MESSAGE FOR CAREGIVER ASSISTED LIVING KARY, REQUESTING ADMISSION DETERMINATION AND RETURN PHONE CALL. CM FAXED REFERRAL UPDATE TO [facility] FOR SWING BED CONSIDERATION AT [phone]. CM WAITING ADMISSION DETERMINATION FROM [facility] FOR SWING BED ADMISSION. Chinedu Benitez CASE MANAGEMENT DCP- Discharge Planning Updated by [email or web address]: Chinedu Benitez on 05/05/19 2:[address] Patient Name: CHALO MA Encounter No: [id number] : 1945 Primary Insurance: MEDICARE A & B Anticipated DC Date: Planned Disposition: Group Home Facility External Planned Provider: [facility] SWING BED, SKILLED MEDICARE REHAB BED DCP follow-up note: CM RECEIVED CALL FROM [facility], , THEY WOULD LIKE TO TAKE PT AND HAVE CALLED PT'S SPOUSE, Morenita., WHO INFORMED THEM THAT HE WANTS PT PLACED IN [place]. CM SPOKE TO PT WHO REPORTS THAT IF HER SAID SO, THEN SHE IS IN AGREEMENT. CM DISCUSSED BEING ABLE TO TRANSFER TO CHAIR AND GET INTO A CAR FOR TRANSPORT [facility], IF THEY ACCEPT, WILL NOT BE PROVIDING TRANSPORTATION. PT REPORTS ABILITY TO STAND AND TRANSFER AND DID SO WITH THERAPY TODAY. CM WAITING ADMISSION DETERMINATION FROM [facility] FOR SWING BED, SKILLED REHAB. JOCY Whiting DCP- Discharge Planning Updated by [id number]: Chinedu Benitez on 05/05/19 1:[address] Patient Name: CHALO MA Encounter No: [id number] : 1945 Primary Insurance: MEDICARE A & B Anticipated DC Date: Planned Disposition: Group Home Facility External Planned Provider: [facility] [facility] OR [facility] SWING BED, SKILLED MEDICARE REHAB BED DCP follow-up note: CM CALLED [facility], , SPOKE TO KARY WHO INFORMED CM THAT THEY HAVE SWING BED WITH THERAPY SERVICES, BILLED TO HALFWAY DAYS. PT WILL HAVE 30 TO 45 MINUTES OF THERAPY PER DAY, TWICE PER DAY AND PT WILL BE REQUIRED TO PARTICIPATE FULLY AND WALK. CM FAXED REFERRAL TO [facility] AT [phone]. CM NOTIFIED PT WHO ALSO WANTS REFERRAL SENT TO THE PRISON IN [place]. [facility]. [facility], , SPOKE TO KARY WHO INFORMED CM THAT THEY HAVE REHAB BEDS AVAILABLE. CM FAXED REFERRAL TO PROO[facility], GREG, , FOR REHAB CONSIDERATION. CM WAITING ADMISSION DETERMINATIONS FROM [facility] FOR SWING BED, [facility] FOR HAL[facility]AY REHAB. JOCY Whiting DCP- Discharge Planning Updated by [id number]: Chinedu Benitez on 05/04/19 4:[address] Patient Name: CHALO AM Encounter No: [id number] : 1945 Primary Insurance: MEDICARE A & B Anticipated DC Date: Planned Disposition: Inpatient Rehab External Planned Provider: [facility] INPATIENT REHAB DCP follow-up note: CM SPOKE TO PT REGARDING REHAB PT HAS STATED TO DR. DIAZ SHE WANTS REHAB CLOSER TO HOME. PT STATES SHE AND HER HAVE TALKED AND SHE WANTS REFERRED TO INPATIENT REHAB AT [facility] IN [place]. IMPORTANT MESSAGE FROM MEDICARE PROVIDED AND EXPLAINED. CM TO CALL AND SEND REFERRAL TO [facility] INPATIENT REHAB SOON POSSIBLE. Chinedu Benitez, CASE MANAGEMENT DCP- Discharge Planning Updated by [id number]: Chinedu Benitez on 04/28/19 1:[address] Patient Name: CHALO MA Admission Status: Urgent Accout number: [id number] Admission Date: 04-25-2019 : 1945 Admission Diagnosis:SHORTNESS OF BREATH Attending: JED SIU Current LOS: 3 Anticipated DC Date: Planned Disposition: Home with Home Health Primary Insurance: MEDICARE A & B PLANNED EXTERNAL PROVIDER: [facility] Discharge Planning Comments: CM MET WITH PT AND SPOUSE IN ROOM TO DISCUSS DISCHARGE PLANNING AND NEEDS. CHALO MA provided verbal consent to discuss current and ongoing needs with/in the presence of: SPOUSE, EJ. PT REPORTS LIVING AT HOME INDEPENDENTLY WITH HER SPOUSE. PT HAS BEDSIDE COMMODE, CANE, NEBULIZER, HOME AND PORTABLE OXYGEN WALKER AND ELECTRIC WHEELCHAIR. MEDICAL EQUIPMENT PROVIDER IS [facility] PATIENT. PT HAS HOME HEALTH WITH [facility] FOR NURSING AND PHYSICAL THERAPY. CM DISCUSSED AVAILABILITY OF HOME HEALTH, REHAB SERVICES AND MEDICAL EQUIPMENT. CM DISCUSSED INPATIENT REHAB PRESCREENING ORDER, DISCUSSED AVAILABILITY OF INPATIENT AND HALFWAY REHAB, PROVIDERS AND LOCATIONS. PT DENIES DISCHARGE NEEDS AND WANTS TO RETURN HOME WITH HOME HEALTH. PT'S SPOUSE IN AGREEMENT WITH PLAN. PT'S SPOUSE WILL PICK PT UP FOR DISCHARGE HOME. IMPORTANT MESSAGE FROM MEDICARE PROVIDED AND EXPLAINED. CHOICE FOR HOME HEALTH SIGNED. CM DISCUSSED THERAPY PROGRESS AND ASKED PT'S SPOUSE IF HE HAS BEEN HERE FOR THERAPY AND CAN HE ASSIST PT IN HER CURRENT CONDITION SAFELY. PT'S SPOUSE REPORTS HE HAS SEEN THERAPY WORKING WITH PT AND HE CAN PROVIDE THE CARE PT NEEDS AT HOME. PT'S SPOUSE REPORTS PT IS NOT GOING TO REHAB AND WILL BE GOING HOME WITH HOME HEALTH RESUMPTION. CM PROVIDED CM CONTACT INFORMATION AND ASKED THAT PT OR SPOUSE NOTIFY CM IF THEY CHANGE THEIR MIND AND WANT REHAB PLACEMENT PRIOR TO GOING HOME. CM CALLED [facility], , DISCUSSED WITH SPR[facility] WHO CONFIRMED PT IS ACTIVE AND THEY WILL RESUME SERVICES AT DISCHARGE. [facility] AGREES THAT PT WOULD BENEFIT FROM REHAB PRIOR TO RETURN HOME. PT PLANS TO DISCHARGE HOME WITH SPOUSE AND HOME HEALTH RESUMPTION. FOR DISCHARGE HOME WITH HOME HEALTH RESUMPTION, NOTIFY [facility] AT [phone]. FAX DISCHARGE INFORMATION TO [facility] AT [phone]. CM TO CONTINUE TO FOLLOW AND ASSIST NEEDED. Personal Loan Specialist: Chinedu Benitez DCPIA - Discharge Planning Initial Assessment Updated by JAYCE: Chinedu Benitez on 04/28/19 2:25 pm * Is the patient Alert and Oriented? Yes * How many steps to enter\exit or inside your home? NONE * PCP DR. BURTON * Pharmacy [facility] IN [place] * Preadmission Environment Home with Family * ADLs Independent * Equipment Bedside Commode Cane Nebulizer Oxygen Power Chair or Electric Scooter * Other Equipment HOME AND PORTABLE OXYGEN [facility] [place] * List name and contact numbers for known caregivers / representatives who currently or will assist patient after discharge: TITA MA, SPOUSE, * Verbal permission to speak to the caregivers and representatives has been obtained from the patient. Yes * Community resources currently utilized Home Health * Please name any agencies selected above. [facility], [facility], THERAPY SERVICES T- [phone], F [phone] * Additional services required to return to the preadmission environment? Yes * Can the patient safely return to the preadmission environment? Yes * Has this patient been hospitalized within the prior 30 days at any hospital? No Coverage Notice Reviewer: [id number] Benitez Notice Issued Date-Time: 04/28/2019 13:45 Notice Type: Patient Choice Letter Notice Delivered To: Family Member Relationship to Patient: Spouse Relay Assembler Name: TITA MA Delivery Method: HAND - Hand Delivered Chary Days: Prior Verbal Notification: Recipient Understood Notice: Yes Recipient Signature: Yes Med Rec Note Co-signed by Attending: Coverage Notice Comment: [facility] Reviewer: [id number] Benitez Notice Issued Date-Time: 04/28/2019 13:45 Notice Type: IM Discharge Notice Notice Delivered To: Family Member Relationship to Patient: Spouse Relay Assembler Name: TITA MA Delivery Method: HAND - Hand Delivered Chary Days: Prior Verbal Notification: Recipient Understood Notice: Yes Recipient Signature: Yes Med Rec Note Co-signed by Attending: Coverage Notice Comment: Reviewer: [id number] Benitez Notice Issued Date-Time: 05/04/2019 9:55 Notice Type: IM Discharge Notice Notice Delivered To: Patient Relationship to Patient: Relay Assembler Name: Delivery Method: HAND - Hand Delivered Chary Days: Prior Verbal Notification: Recipient Understood Notice: Yes Recipient Signature: Yes Med Rec Note Co-signed by Attending: Coverage Notice Comment: Reviewer: [id number] - Chinedu Benitez Notice Issued Date-Time: 05/05/2019 9:55 Notice Type: Patient Choice Letter Notice Delivered To: Patient Relationship to Patient: Relay Assembler Name: Delivery Method: HAND - Hand Delivered Chary Days: Prior Verbal Notification: Recipient Understood Notice: Yes Recipient Signature: Yes Med Rec Note Co-signed by Attending: Coverage Notice Comment: [facility] Last DP export: 05/08/19 2:51 pm Patient Name: CHALO MA Page [id number] at 1732 All edits/amendments must be made on the electronic document DICTATION DATE: 05/08/191730 SIGNAL TOWER OPERATOR: AVINASH 05/08/191730 RPT#: [id number] DC DATE: STATUS: ADM IN [facility] [address] [place] [address] END OF REPORT
--- NOTE | 2019-05-08 17:40 | MORECARE ---
CASE MANAGEMENT DISCHARGE SUMMARY PATIENT: CHALO MA UNIT: [id number] ADM DATE: 04/25/19 AGE: 73 : 44 SEX: F ROOM/BED: D.9043 AUTHOR: ANA M,DOC PHYSICIAN: REFERRING PHYSICIAN: JED SIU MD DATE OF SERVICE: 05/08/19 Discharge Plan Patient Name: CHALO MA Facility: [facility]:[place] : 1945 Planned Disposition: Fpc Facility Anticipated Discharge Date: 05/09/19 Discharge Date: Expected LOS: 14 Initial Reviewer: [id number] Initial Review Date: 04/25/2019 Generated: 05/08/19 6:40 pm Comments DCP- Discharge Planning Updated by [id number]: Chinedu Josue on 05/08/19 4:[address] Patient Name: CHALO MA Encounter No: [id number] : 1945 Primary Insurance: MEDICARE A & B Anticipated DC Date: 05-09-2019 Planned Disposition: Fpc Facility External [facility], [facility]HAB BED DCP follow-up note: CM RECEIVED CALL FROM KARY AT [facility] WHO REPORTED THEY CANNOT MEET PT'S NEEDS, THAT PT NEEDS MORE REHAB THAN THEY WILL BE ABLE TO PROVIDE AND SUGGESTED [facility]. CM SPOKE TO PT AND SPOUSE IN ROOM, BOTH IN AGREEMENT WITH [facility] FOR REHAB. IMPORTANT MESSAGE FROM MEDICARE PROVIDED AND EXPLAINED. PT'S SPOUSE REPORTS HE HAS PORTABLE OXYGEN AND WILL TRANSPORT PT TO REHAB AT [facility] IF HE HAS HELP TO GET PT INTO CAR. [facility], , SPOKE TO GREG GONZALEZ, ELECTROMECHANICAL TECHNOLOGIST WHO INFORMED CM THAT SHE WILL HAVE TO REVIEW ENTIRE REFERRAL AND HOPES TO HAVE DETERMINATION FOR ADMISSION TODAY. CM FAXED REFERRAL TO [facility] AT [phone]. CM LATER RECEIVED CALL FROM GREG WHO INFORMED CM THEY WILL ACCEPT PT TOMORROW MORNING. CM NOTIFIED PT AND SPOUSE, BOTH IN AGREEMENT WITH DISCHARGE PLAN. FOR DISCHARGE IN THE MORNING, 05-09-19, FAX DISCHARGE INFORMATION TO [facility] AT [phone]. NURSE REPORT TO BE CALLED TO FACILITY AT [phone]. PT'S SPOUSE TO TRANSPORT TO REHAB. CHINEDU JOSUE, CASE MANAGEMENT Chinedu Josue DCP- Discharge Planning Updated by [id number]: Chinedu Josue on 05/08/19 8:[address] Patient Name: CHAOL MA Encounter No: [id number] : 1945 Primary Insurance: MEDICARE A & B Anticipated DC Date: Planned Disposition: Fpc Facility External Planned Provider: [facility], MEDICARE SWING BED DCP follow-up note: CM CALLED [facility], , LEFT MESSAGE FOR PLASTICS NURSE KARY, REQUESTING ADMISSION DETERMINATION AND RETURN PHONE CALL. CM FAXED REFERRAL UPDATE TO [facility] FOR SWING BED CONSIDERATION AT [phone]. CM WAITING ADMISSION DETERMINATION FROM [facility] FOR SWING BED ADMISSION. JOCY Whiting DCP- Discharge Planning Updated by [id number]: Chinedu Josue on 05/05/19 2:[address] Patient Name: CHALO MA Encounter No: [id number] : 1945 Primary Insurance: MEDICARE A & B Anticipated DC Date: Planned Disposition: Fpc Facility External Planned Provider: [facility] SWING BED, SKILLED MEDICARE REHAB BED DCP follow-up note: CM RECEIVED CALL FROM [facility], , THEY WOULD LIKE TO TAKE PT AND HAVE CALLED PT'S SPOUSE, Catracho, WHO INFORMED THEM THAT HE WANTS PT PLACED IN [place]. CM SPOKE TO PT WHO REPORTS THAT IF HER SAID SO, THEN SHE IS IN AGREEMENT. CM DISCUSSED BEING ABLE TO TRANSFER TO CHAIR AND GET INTO A CAR FOR TRANSPORT [facility], IF THEY ACCEPT, WILL NOT BE PROVIDING TRANSPORTATION. PT REPORTS ABILITY TO STAND AND TRANSFER AND DID SO WITH THERAPY TODAY. CM WAITING ADMISSION DETERMINATION FROM [facility] FOR SWING BED, SKILLED REHAB. JOCY Whiting DCP- Discharge Planning Updated by [id number]: Chinedu Josue on 05/05/19 1:[address] Patient Name: CHALO MA Encounter No: [id number] : 1945 Primary Insurance: MEDICARE A & B Anticipated DC Date: Planned Disposition: Fpc Facility External Planned Provider: [facility] OR [facility] SWING BED, SKILLED MEDICARE REHAB BED DCP follow-up note: CM CALLED [facility], , SPOKE TO KARY WHO INFORMED CM THAT THEY HAVE SWING BED WITH THERAPY SERVICES, BILLED TO [facility] DAYS. PT WILL HAVE 30 TO 45 MINUTES OF THERAPY PER DAY, TWICE PER DAY AND PT WILL BE REQUIRED TO PARTICIPATE FULLY AND WALK. CM FAXED REFERRAL TO [facility] AT [phone]. CM NOTIFIED PT WHO ALSO WANTS REFERRAL SENT TO THE GROUP HOME IN [place]. PT S[facility]. [facility] [place], , SPOKE TO KARY WHO INFORMED CM THAT THEY HAVE REHAB BEDS AVAILABLE. CM FAXED REFERRAL TO ELECTROMECHANICAL TECHNOLOGIST, GREG, , FOR REHAB CONSIDERATION. CM WAITING ADMISSION DETERMINATIONS FROM [facility] FOR SWING BED, SK[facility] REHAB [facility] FOR [facility] REHAB. Chinedu Josue CASE MANAGEMENT DCP- Discharge Planning Updated by [id number]: Chinedu Josue on 05/04/19 4:[address] Patient Name: CHALO MA Encounter No: [id number] : 1945 Primary Insurance: MEDICARE A & B Anticipated DC Date: Planned Disposition: Inpatient Rehab External Planned Provider: [facility] INPATIENT REHAB DCP follow-up note: CM SPOKE TO PT REGARDING REHAB PT HAS STATED TO DR. DIAZ SHE WANTS REHAB CLOSER TO HOME. PT STATES SHE AND HER HAVE TALKED AND SHE WANTS REFERRED TO INPATIENT REHAB AT [facility] IN [place], [place]. IMPORTANT MESSAGE FROM MEDICARE PROVIDED AND EXPLAINED. CM TO CALL AND SEND REFERRAL TO [facility] INPATIENT REHAB SOON POSSIBLE. Chinedu Josue CASE MANAGEMENT DCP- Discharge Planning Updated by [id number]: Chinedu Josue on 04/28/19 1:[address] Patient Name: CHALO MA Admission Status: Urgent Accout number: [id number] Admission Date: 04-25-2019 : 1945 Admission Diagnosis:SHORTNESS OF BREATH Attending: JED SIU Current LOS: 3 Anticipated DC Date: Planned Disposition: Home with Home Health Primary Insurance: MEDICARE A & B PLANNED EXTERNAL PROVIDER: [facility] HOME HEALTH Discharge Planning Comments: CM MET WITH PT AND SPOUSE IN ROOM TO DISCUSS DISCHARGE PLANNING AND NEEDS. CHALO MA provided verbal consent to discuss current and ongoing needs with/in the presence of: SPOUSE, TITA. PT REPORTS LIVING AT HOME INDEPENDENTLY WITH HER SPOUSE. PT HAS BEDSIDE COMMODE, CANE, NEBULIZER, HOME AND PORTABLE OXYGEN WALKER AND ELECTRIC WHEELCHAIR. MEDICAL EQUIPMENT PROVIDER IS [facility]. PT HAS HOME HEALTH WITH [facility] FOR NURSING AND PHYSICAL THERAPY. CM DISCUSSED AVAILABILITY OF HOME HEALTH, REHAB SERVICES AND MEDICAL EQUIPMENT. CM DISCUSSED INPATIENT REHAB PRESCREENING ORDER, DISCUSSED AVAILABILITY OF INPATIENT AND [facility] REHAB, PROVIDERS AND LOCATIONS. PT DENIES DISCHARGE NEEDS AND WANTS TO RETURN HOME WITH HOME HEALTH. PT'S SPOUSE IN AGREEMENT WITH PLAN. PT'S SPOUSE WILL PICK PT UP FOR DISCHARGE HOME. IMPORTANT MESSAGE FROM MEDICARE PROVIDED AND EXPLAINED. CHOICE FOR HOME HEALTH SIGNED. CM DISCUSSED THERAPY PROGRESS AND ASKED PT'S SPOUSE IF HE HAS BEEN HERE FOR THERAPY AND CAN HE ASSIST PT IN HER CURRENT CONDITION SAFELY. PT'S SPOUSE REPORTS HE HAS SEEN THERAPY WORKING WITH PT AND HE CAN PROVIDE THE CARE PT NEEDS AT HOME. PT'S SPOUSE REPORTS PT IS NOT GOING TO REHAB AND WILL BE GOING HOME WITH HOME HEALTH RESUMPTION. CM PROVIDED CM CONTACT INFORMATION AND ASKED THAT PT OR SPOUSE NOTIFY CM IF THEY CHANGE THEIR MIND AND WANT REHAB PLACEMENT PRIOR TO GOING HOME. CM CALLED [facility], , DISCUSSED WITH SPRING WHO CONFIRMED PT IS ACTIVE AND THEY WILL RESUME SERVICES AT DISCHARGE. [facility] AGREES THAT PT WOULD BENEFIT FROM REHAB PRIOR TO RETURN HOME. PT PLANS TO DISCHARGE HOME WITH SPOUSE AND HOME HEALTH RESUMPTION. FOR DISCHARGE HOME WITH HOME HEALTH RESUMPTION, NOTIFY [facility] AT [phone]. FAX DISCHARGE INFORMATION TO [facility] AT [phone]. CM TO CONTINUE TO FOLLOW AND ASSIST NEEDED. Laundry Pricing Clerk: Chinedu Josue DCPIA - Discharge Planning Initial Assessment Updated by [id number]: Chinedu Josue on 04/28/19 2:25 pm * Is the patient Alert and Oriented? Yes * How many steps to enter\exit or inside your home? NONE * PCP DR. BURTON * Pharmacy [facility] IN [place] * Preadmission Environment Home with Family * ADLs Independent * Equipment Bedside Commode Cane Nebulizer Oxygen Power Chair or Electric Scooter * Other Equipment HOME AND PORTABLE OXYGEN [facility] * List name and contact numbers for known caregivers / representatives who currently or will assist patient after discharge: TITA MA, SPOUSE, * Verbal permission to speak to the caregivers and representatives has been obtained from the patient. Yes * Community resources currently utilized Home Health * Please name any agencies selected above. [facility], [facility], THERAPY SERVICES T- [phone], F [phone] * Additional services required to return to the preadmission environment? Yes * Can the patient safely return to the preadmission environment? Yes * Has this patient been hospitalized within the prior 30 days at any hospital? No Coverage Notice Reviewer: JAYCE Josue Notice Issued Date-Time: 04/28/2019 13:45 Notice Type: Patient Choice Letter Notice Delivered To: Family Member Relationship to Patient: Spouse Training And Development Assistant Name: TITA MA Delivery Method: HAND - Hand Delivered Chary Days: Prior Verbal Notification: Recipient Understood Notice: Yes Recipient Signature: Yes Med Rec Note Co-signed by Attending: Coverage Notice Comment: [facility] Reviewer: JAYCE Josue Notice Issued Date-Time: 05/08/2019 13:45 Notice Type: IM Discharge Notice Notice Delivered To: Family Member Relationship to Patient: Spouse Training And Development Assistant Name: TITA MA Delivery Method: HAND - Hand Delivered Chary Days: Prior Verbal Notification: Recipient Understood Notice: Yes Recipient Signature: Yes Med Rec Note Co-signed by Attending: Coverage Notice Comment: Reviewer: JAYCE Josue Notice Issued Date-Time: 04/28/2019 13:45 Notice Type: IM Discharge Notice Notice Delivered To: Family Member Relationship to Patient: Spouse Training And Development Assistant Name: TITA MA Delivery Method: HAND - Hand Delivered Chary Days: Prior Verbal Notification: Recipient Understood Notice: Yes Recipient Signature: Yes Med Rec Note Co-signed by Attending: Coverage Notice Comment: Reviewer: JAYCE Josue Notice Issued Date-Time: 05/05/2019 9:55 Notice Type: Patient Choice Letter Notice Delivered To: Patient Relationship to Patient: Training And Development Assistant Name: Delivery Method: HAND - Hand Delivered Chary Days: Prior Verbal Notification: Recipient Understood Notice: Yes Recipient Signature: Yes Med Rec Note Co-signed by Attending: Coverage Notice Comment: [facility] Reviewer: JAYCE Josue Notice Issued Date-Time: 05/04/2019 9:55 Notice Type: IM Discharge Notice Notice Delivered To: Patient Relationship to Patient: Training And Development Assistant Name: Delivery Method: HAND - Hand Delivered Chary Days: Prior Verbal Notification: Recipient Understood Notice: Yes Recipient Signature: Yes Med Rec Note Co-signed by Attending: Coverage Notice Comment: Last DP export: 05/08/19 4:32 pm Patient Name: CHALO MA Page [id number] at 1740 All edits/amendments must be made on the electronic document DICTATION DATE: 05/08/191739 DIRECTOR OF SOCIAL MEDIA MARKETING: AVINASH 05/08/191739 RPT#: [id number] DC DATE: STATUS: ADM IN [facility] [address] [place] [address] END OF REPORT
[2019-05-08 20:00] VITALS: BP 116/50
--- NOTE | 2019-05-08 20:36 | NUR ---
RECIEVED LAYING IN BED WITH HOB ELEVATED. O2@ 4 LITERS PER N/C IN PLACE. NO IV ACCESS. GENERALIZED EDEMA TO UPPER AND LOWER EXTREMITIES. PITTING EDEMA TO FEET. CONT. TO TREAT WOUNDS TO ARMS WITH BACTROBAN. DENIES ANY NEEDS AT THIS TIME.
[2019-05-09] VITALS: BP 119/686
--- NOTE | 2019-05-09 00:06 | NUR ---
LAYING IN BED WITH EYES CLOSED. HOB ELEVATED. O2@3 LITERS PER N/C IN PLACE. SPOUSE AT BEDSIDE IN CHAIR WITH EYES CLOSED. NO S/S OF DISTRESS OBSERVED.
[2019-05-09 04:30] VITALS: BP 142/74
[2019-05-09 05:42] LABS: BASOPHILS 0.1 % (0-2); EOSINOPHILS 0.3 % (0-7); HEMATOCRIT 29.9 % (36.0-48.0); HEMOGLOBIN 9.7 g/dL (12-16); IMMATURE GRANULOCYTES 3.6 % (0-5); LYMPHOCYTES 34.1 % (15-50); MCH 27.4 pg (26.0-34.0); MCHC 32.4 g/dL (31.0-37.0); MCV 84.5 fL (80.0-100.0); MEAN PLATELET VOLUME 10.7 fL (7.4-10.4); MONOCYTES 11.8 % (2-11); NEUTROPHILS 50.1 % (40-80); PLATELET COUNT 253 10x3/uL (130-400); RBC 3.54 10x6/uL (4.00-5.40); RDW 15.9 % (11.5-14.5); WBC 9.4 10x3/uL (4.8-10.8)
[2019-05-09 06:08] LABS: ALBUMIN 2.3 g/dL (3.4-5.0); BILIRUBIN - TOTAL 0.67 mg/dL (0.2-1.3); CALCIUM 8.4 mg/dL (8.5-10.1); CARBON DIOXIDE 32.3 mmol/L (21.0-32.0); CREATININE - SERUM 1.2 mg/dL (0.6-1.3); POTASSIUM - SERUM 4.3 mmol/L (3.5-5.1); PROTEIN - SERUM 5.4 g/dL (6.4-8.2)
--- NOTE | 2019-05-09 07:21 | NUR ---
AM ROUNDS PT RESTING COMFORTABLY IN BED WITH EYES CLOSED, RESP EVEN AND NONLABORED ON 4L NC. NO IV ACCESS NOTED, CALL LIGHT IN REACH, BEDSIDE RAILS X2, NAD NOTED, AT BEDSIDE, WILL CONTINUE TO MONITOR.
[2019-05-09 08:25] VITALS: BP 155/95
[2019-05-09] MEDS ORDERED: LEVOFLOXACIN500 MG PO (08:29)
[2019-05-09] MEDS ORDERED: MIRALAX17 GM PO (08:30)
[2019-05-09] MEDS ORDERED: FOLIC ACID1 MG PO (08:32)
[2019-05-09] MEDS ORDERED: PREDNISONE20 MG PO (08:32)
--- NOTE | 2019-05-09 09:12 | NUR ---
AM MEDS GIVEN AT THIS TIME. ALSO PROVIDED VERBAL AND WRITTEN DISCHARGE TEACHING TO PT, WHO VERBALIZED UNDERSTANDING REGARDING TEACHING. WILL HAVE MOTOR REBUILDER HELP PT GET READY. PT WILL NOTIFY NURSE WHEN READY FOR WHEELCHAIR.
--- NOTE | 2019-05-09 09:15 | MORECARE ---
CASE MANAGEMENT DISCHARGE SUMMARY PATIENT: CHALO MA UNIT: [id number] ADM DATE: 04/25/19 AGE: 73 : 43 SEX: F ROOM/BED: D.8825 AUTHOR: ANA MDOC PHYSICIAN: REFERRING PHYSICIAN: JED SIU MD DATE OF SERVICE: 05/09/19 Discharge Plan Patient Name: CHALO MA Facility: [facility]:[place] : 1945 Planned Disposition: Usp Facility Anticipated Discharge Date: 05/09/19 Discharge Date: Expected LOS: 14 Initial Reviewer: [id number] Initial Review Date: 04/25/2019 Generated: 05/09/19 10:15 am Comments DCP- Discharge Planning Updated by [id number]: Sujit Josue on 05/09/19 8:[address] Patient Name: CHALO MA Encounter No: [id number] : 1945 Primary Insurance: MEDICARE A & B Anticipated DC Date: 05-09-2019 Planned Disposition: Usp Facility External [facility], MEDICARE REHAB BED DCP follow-up note: CM RECEIVED DISCHARGE ORDER, FAXED DISCHARGE INFORMATION TO [facility] AT [phone]. NURSE REPORT TO BE CALLED TO FACILITY AT [phone]. PT'S SPOUSE TO TRANSPORT TO REHAB. JOCY CALLOWAY DCP- Discharge Planning Updated by [id number]: Sujit Josue on 05/08/19 4:[address] Patient Name: CHALO MA Encounter No: [id number] : 1945 Primary Insurance: MEDICARE A & B Anticipated DC Date: 05-09-2019 Planned Disposition: Usp Facility External Planned Provider: [facility], MEDICARE REHAB BED DCP follow-up note: CM RECEIVED CALL FROM KARY RUSSELL [facility] WHO REPORTED THEY CANNOT MEET PT'S NEEDS, THAT PT NEEDS MORE REHAB THAN THEY WILL BE ABLE TO PROVIDE AND SUGGESTED [facility]. CM SPOKE TO PT AND SPOUSE IN ROOM, BOTH IN AGREEMENT WITH [facility] FOR RE[facility]AB. IMPORTANT MESSAGE FROM MEDICARE PROVIDED AND EXPLAINED. PT'S SPOUSE REPORTS HE HAS PORTABLE OXYGEN AND WILL TRANSPORT PT TO REHAB AT [facility] IF HE HAS HELP TO GET PT INTO CAR. CM CALLED [facility], , SPOKE TO GREG GONZALEZ, LABEL REMOVER WHO INFORMED CM THAT SHE WILL HAVE TO REVIEW ENTIRE REFERRAL AND HOPES TO HAVE DETERMINATION FOR ADMISSION TODAY. CM FAXED REFERRAL TO [facility] AT [phone]. CM LATER RECEIVED CALL FROM GREG WHO INFORMED CM THEY WILL ACCEPT PT TOMORROW MORNING. CM NOTIFIED PT AND SPOUSE, BOTH IN AGREEMENT WITH DISCHARGE PLAN. FOR DISCHARGE IN THE MORNING, 05-09-19, FAX DISCHARGE INFORMATION TO [facility] AT [phone]. NURSE REPORT TO BE CALLED TO FACILITY AT [phone]. PT'S SPOUSE TO TRANSPORT TO REHAB. SUJIT JOSUE, CASE MANAGEMENT Sujit Josue DCP- Discharge Planning Updated by [id number]: Sujit Josue on 05/08/19 8:[address] Patient Name: CHALO MA Encounter No: [id number] : 1945 Primary Insurance: MEDICARE A & B Anticipated DC Date: Planned Disposition: Usp Facility External Planned Provider: [facility], MEDICARE SWING BED DCP follow-up note: CM CALLED [facility], , LEFT MESSAGE FOR STAVE INSPECTOR KARY, REQUESTING ADMISSION DETERMINATION AND RETURN PHONE CALL. CM FAXED REFERRAL UPDATE TO [facility] FOR SWING BED CONSIDERATION AT [phone]. CM WAITING ADMISSION DETERMINATION FROM [facility] FOR SWING BED ADMISSION. JOCY Calloway DCP- Discharge Planning Updated by [id number]: Sujit Josue on 05/05/19 2:[address] Patient Name: CHALO MA Encounter No: [id number] : 1945 Primary Insurance: MEDICARE A & B Anticipated DC Date: Planned Disposition: Usp Facility External Planned Provider: [facility] SWING BED, SKILLED MEDICARE REHAB BED DCP follow-up note: CM RECEIVED CALL FROM CHARLES OF [facility], , THEY WOULD LIKE TO TAKE PT AND HAVE CALLED PT'S SPOUSE, Morenita., WHO INFORMED THEM THAT HE WANTS PT PLACED IN [place]. CM SPOKE TO PT WHO REPORTS THAT IF HER SAID SO, THEN SHE IS IN AGREEMENT. CM DISCUSSED BEING ABLE TO TRANSFER TO [place] AND GET INTO A CAR FOR TRANSPORT [facility], IF THEY ACCEPT, WILL NOT BE PROVIDING TRANSPORTATION. PT REPORTS ABILITY TO STAND AND TRANSFER AND DID SO WITH THERAPY TODAY. CM WAITING ADMISSION DETERMINATION FROM [facility] FOR SWING BED, SKILLED REHAB. JOCY Calloway MANAGEMENT DCP- Discharge Planning Updated by [id number]: Sujit Josue on 05/05/19 1:[address] Patient Name: CHALO MA Encounter No: [id number] : 1945 Primary Insurance: MEDICARE A & B Anticipated DC Date: Planned Disposition: Usp Facility External Planned Provider: [facility] [place] OR [facility] SWING BED, SKILLED MEDICARE REHAB BED DCP follow-up note: CM CALLED [facility], , SPOKE TO KARY WHO INFORMED CM THAT THEY HAVE SWING BED WITH THERAPY SERVICES, BILLED TO PRISON DAYS. PT WILL HAVE 30 TO 45 MINUTES OF THERAPY PER DAY, TWICE PER DAY AND PT WILL BE REQUIRED TO PARTICIPATE FULLY AND WALK. CM FAXED REFERRAL TO [facility] AT [phone]. CM NOTIFIED PT WHO ALSO WANTS REFERRAL SENT TO THE LONG TERM IN [place]. PT SIGNED CONSENT FOR [facility]. CM CALLED [facility], , SPOKE TO KARY WHO INFORMED CM THAT THEY HAVE REHAB BEDS AVAILABLE. CM FAXED REFERRAL TO LABEL REMOVER, GREG, , FOR REHAB CONSIDERATION. CM WAITING ADMISSION DETERMINATIONS FROM [facility] FOR SWING BED, SKILLED REHAB AND [facility] AND [facility] FOR PRISON REHAB. Sujit Josue, CASE MANAGEMENT DCP- Discharge Planning Updated by [id number]: Sujit Josue on 05/04/19 4:[address] Patient Name: CHALO MA Encounter No: [id number] : 1945 Primary Insurance: MEDICARE A & B Anticipated DC Date: Planned Disposition: Inpatient Rehab External Planned Provider: [facility] INPATIENT REHAB DCP follow-up note: CM SPOKE TO PT REGARDING REHAB PT HAS STATED TO DR. DIAZ SHE WANTS REHAB CLOSER TO HOME. PT STATES SHE AND HER HAVE TALKED AND SHE WANTS REFERRED TO INPATIENT REHAB AT [facility] IN [place], [place]. IMPORTANT MESSAGE FROM MEDICARE PROVIDED AND EXPLAINED. CM TO CALL AND SEND REFERRAL TO [facility] INPATIENT REHAB SOON POSSIBLE. Sujit Josue, CASE MANAGEMENT DCP- Discharge Planning Updated by [id number]: Sujit Josue on 04/28/19 1:[address] Patient Name: CHALO MA Admission Status: Urgent Accout number: [id number] Admission Date: 04-25-2019 : 1945 Admission Diagnosis:SHORTNESS OF BREATH Attending: EJD SIU Current LOS: 3 Anticipated DC Date: Planned Disposition: Home with Home Health Primary Insurance: MEDICARE A & B PLANNED EXTERNAL PROVIDER: [facility] Discharge Planning Comments: CM MET WITH PT AND SPOUSE IN ROOM TO DISCUSS DISCHARGE PLANNING AND NEEDS. CHALO MA provided verbal consent to discuss current and ongoing needs with/in the presence of: SPOUSE, EJ. PT REPORTS LIVING AT HOME INDEPENDENTLY WITH HER SPOUSE. PT HAS BEDSIDE COMMODE, CANE, NEBULIZER, HOME AND PORTABLE OXYGEN WALKER AND ELECTRIC WHEELCHAIR. MEDICAL EQUIPMENT PROVIDER IS [facility] PATIENT. PT HAS HOME HEALTH WITH [facility] FOR NURSING AND PHYSICAL THERAPY. CM DISCUSSED AVAILABILITY OF HOME HEALTH, REHAB SERVICES AND MEDICAL EQUIPMENT. CM DISCUSSED INPATIENT REHAB PRESCREENING ORDER, DISCUSSED AVAILABILITY OF INPATIENT AND PRISON REHAB, PROVIDERS AND LOCATIONS. PT DENIES DISCHARGE NEEDS AND WANTS TO RETURN HOME WITH HOME HEALTH. PT'S SPOUSE IN AGREEMENT WITH PLAN. PT'S SPOUSE WILL PICK PT UP FOR DISCHARGE HOME. IMPORTANT MESSAGE FROM MEDICARE PROVIDED AND EXPLAINED. CHOICE FOR HOME HEALTH SIGNED. CM DISCUSSED THERAPY PROGRESS AND ASKED PT'S SPOUSE IF HE HAS BEEN HERE FOR THERAPY AND CAN HE ASSIST PT IN HER CURRENT CONDITION SAFELY. PT'S SPOUSE REPORTS HE HAS SEEN THERAPY WORKING WITH PT AND HE CAN PROVIDE THE CARE PT NEEDS AT HOME. PT'S SPOUSE REPORTS PT IS NOT GOING TO REHAB AND WILL BE GOING HOME WITH HOME HEALTH RESUMPTION. CM PROVIDED CM CONTACT INFORMATION AND ASKED THAT PT OR SPOUSE NOTIFY CM IF THEY CHANGE THEIR MIND AND WANT REHAB PLACEMENT PRIOR TO GOING HOME. CM CALLED [facility], , DISCUSSED WITH SPRING WHO CONFIRMED PT IS ACTIVE AND THEY WILL RESUME SERVICES AT DISCHARGE. [facility] AGREES THAT PT WOULD BENEFIT FROM REHAB PRIOR TO RETURN HOME. PT PLANS TO DISCHARGE HOME WITH SPOUSE AND HOME HEALTH RESUMPTION. FOR DISCHARGE HOME WITH HOME HEALTH RESUMPTION, NOTIFY [facility] AT [phone]. FAX DISCHARGE INFORMATION TO [facility] AT [phone]. CM TO CONTINUE TO FOLLOW AND ASSIST NEEDED. Ballet Professor: Sujit Josue DCPIA - Discharge Planning Initial Assessment Updated by JAYCE: Sujit Josue on 04/28/19 2:25 pm * Is the patient Alert and Oriented? Yes * How many steps to enter\exit or inside your home? NONE * PCP DR. BURTON * Pharmacy [facility] IN [place] * Preadmission Environment Home with Family * ADLs Independent * Equipment Bedside Commode Cane Nebulizer Oxygen Power Chair or Electric Scooter * Other Equipment HOME AND PORTABLE OXYGEN [facility] PATIENT - [place] * List name and contact numbers for known caregivers / representatives who currently or will assist patient after discharge: TITA MA, SPOUSE, * Verbal permission to speak to the caregivers and representatives has been obtained from the patient. Yes * Community resources currently utilized Home Health * Please name any agencies selected above. [facility], [facility], THERAPY SERVICES T- [phone], F [phone] * Additional services required to return to the preadmission environment? Yes * Can the patient safely return to the preadmission environment? Yes * Has this patient been hospitalized within the prior 30 days at any hospital? No Coverage Notice Reviewer: [id number] Josue Notice Issued Date-Time: 04/28/2019 13:45 Notice Type: Patient Choice Letter Notice Delivered To: Family Member Relationship to Patient: Spouse Industrial Sociologist Name: TITA MA Delivery Method: HAND - Hand Delivered Chary Days: Prior Verbal Notification: Recipient Understood Notice: Yes Recipient Signature: Yes Med Rec Note Co-signed by Attending: Coverage Notice Comment: [facility] - [facility] Reviewer: [id number] Melinda Josue Notice Issued Date-Time: 04/28/2019 13:45 Notice Type: IM Discharge Notice Notice Delivered To: Family Member Relationship to Patient: Spouse Industrial Sociologist Name: TITA MA Delivery Method: HAND - Hand Delivered Chary Days: Prior Verbal Notification: Recipient Understood Notice: Yes Recipient Signature: Yes Med Rec Note Co-signed by Attending: Coverage Notice Comment: Reviewer: [id number] Josue Notice Issued Date-Time: 05/04/2019 9:55 Notice Type: IM Discharge Notice Notice Delivered To: Patient Relationship to Patient: Industrial Sociologist Name: Delivery Method: HAND - Hand Delivered Chary Days: Prior Verbal Notification: Recipient Understood Notice: Yes Recipient Signature: Yes Med Rec Note Co-signed by Attending: Coverage Notice Comment: Reviewer: [id number] Josue Notice Issued Date-Time: 05/05/2019 9:55 Notice Type: Patient Choice Letter Notice Delivered To: Patient Relationship to Patient: Industrial Sociologist Name: Delivery Method: HAND - Hand Delivered Chary Days: Prior Verbal Notification: Recipient Understood Notice: Yes Recipient Signature: Yes Med Rec Note Co-signed by Attending: Coverage Notice Comment: [facility] Reviewer: [id number] Melinda Josue Notice Issued Date-Time: 05/08/2019 13:45 Notice Type: IM Discharge Notice Notice Delivered To: Family Member Relationship to Patient: Spouse Industrial Sociologist Name: TITA MA Delivery Method: HAND - Hand Delivered Chary Days: Prior Verbal Notification: Recipient Understood Notice: Yes Recipient Signature: Yes Med Rec Note Co-signed by Attending: Coverage Notice Comment: Last DP export: 05/08/19 4:40 pm Patient Name: CHALO MA Page [id number] at 0915 All edits/amendments must be made on the electronic document DICTATION DATE: 05/09/19914 POWDER ROOM ATTENDANT: AVINASH 05/09/19914 RPT#: [id number] DC DATE: STATUS: ADM IN [facility] [address] [place] [address] END OF REPORT
--- NOTE | 2019-05-09 11:48 | NUR ---
REPORT CALLED TO [facility].
--- NOTE | 2019-05-09 13:29 | NUR ---
WAITING ON [facility] TO COME PICK PT UP.
--- NOTE | 2019-05-09 13:57 | NUR ---
DRESSING TO RT KNEE CHANGED, [facility] HERE TO TRANSFER PT TO [place]. PT LEFT UNIT VIA STRETCHER, WITH ALL BELONGINGS, NAD NOTED.
[2019-05-11 20:07] LABS: AEROBE ID Final report (())
== END 2019-05-09 14:02 | DRG 177 ==
LOC: D.M2 12:46
PROVIDERS: Emergency Medicine; Family Medicine Adult Medicine; Internal Medicine Nephrology; Internal Medicine Pulmonary Disease; ADMIT Internal Medicine Nephrology; ATTEND Internal Medicine Nephrology
DX: J69.0 Pneumonitis due to inhalation of food and vomit (principal); J96.22 Acute and chronic respiratory failure with hypercapnia; I50.31 Acute diastolic (congestive) heart failure; J96.21 Acute and chronic respiratory failure with hypoxia; J44.1 Chronic obstructive pulmonary disease with (acute) exacerbation; G93.1 Anoxic brain damage, not elsewhere classified; I13.0 Hypertensive heart and chronic kidney disease with heart failure and stage 1 through stage 4 chronic kidney disease, or unspecified chronic kidney disease; N39.0 Urinary tract infection, site not specified; Z68.41 Body mass index [BMI] 40.0-44.9, adult; N17.9 Acute kidney failure, unspecified; J44.0 Chronic obstructive pulmonary disease with (acute) lower respiratory infection; J84.9 Interstitial pulmonary disease, unspecified; D64.9 Anemia, unspecified; N18.9 Chronic kidney disease, unspecified; E78.5 Hyperlipidemia, unspecified; E11.22 Type 2 diabetes mellitus with diabetic chronic kidney disease; K59.09 Other constipation; E66.01 Morbid (severe) obesity due to excess calories; G25.81 Restless legs syndrome; F32.9 Major depressive disorder, single episode, unspecified; B96.89 Other specified bacterial agents as the cause of diseases classified elsewhere; J30.9 Allergic rhinitis, unspecified